=== PATIENT | female | born 1935 | race Caucasian/White ===

== ENCOUNTER 2017-04-12 13:03 | Outpatient (CLI) | payer MEDICARE ==
--- NOTE | 2017-04-12 16:32 | MMO ---
BILATERAL DIGITAL SCREENING MAMMOGRAMS: Date: 04/12/17 This patient's mammogram was interpreted with the assistance of computer-aided detection. HISTORY: Left-sided breast cancer in 2008. Comparison made with exams of 03/09/16 and 03/07/15. FINDINGS: The breast tissue is heterogeneously dense, which may reduce the sensitivity of mammography. No susp icious masses or calcifications are seen. Benign calcifications are again noted bilaterally. There i s scarring in the left breast. IMPRESSION: BIRADS 2: Benign Finding(s) Return to annual mammographic screening. POS: [facility]
== END 2017-04-12 13:04 | disposition home or self-care (01) ==
LOC: MAMMO 13:03
PROVIDERS: ATTEND Internal Medicine
DX: Z12.31 Encounter for screening mammogram for malignant neoplasm of breast (principal); Z85.3 Personal history of malignant neoplasm of breast; Z98.890 Other specified postprocedural states; Z92.3 Personal history of irradiation
CPT/HCPCS: 77067; G0202

== ENCOUNTER 2017-12-08 16:46 | Emergency (ER) | payer MEDICARE ==
[2017-12-08 17:44] LABS: #Eosinphils 0.2 thou/uL (0.0-0.7); #Lymphocytes 1.2 thou/uL (1.20-3.40); #Monocytes 0.5 thou/uL (0.11-0.59); #Neutrophils 5.6 thou/uL (1.40-6.50); %Basophils 0.5 % (0.0-1.0); %Eosinophils 2.5 % (0.0-10.0); %Monocytes 6.2 % (0.0-10.0); %Neutrophils 74.8 % (42.0-75.0); Hemoglobin 12.8 g/dL (12.0-16.0); Mean Corpuscular HGB CONC 32.5 g/dL (32.0-36.0); Mean Corpuscular Hemoglobin 30.5 pg (27.0-31.0); Mean Corpuscular Volume 94.1 fL (78.0-98.0); Mean Platelet Volume 8.9 fL (7.4-10.4); Platelet Count 150 thou/uL (130-400); RBC Distribution Width 14.4 % (11.5-14.5); Red Blood Cell (RBC) Count 4.18 mill/uL (4.20-5.40); White Blood Cell (WBC) Count 7.5 thou/uL (4.8-10.8)
[2017-12-08 18:01] LABS: ALT (SGPT) 16 U/L (8-55); AST (SGOT) 19 U/L (5-34); Alkaline Phosphatase 94 U/L (40-150); Anion Gap 15 mmol/L (10-20); BUN (Urea Nitrogen) 41 mg/dL (9.8-20.1); Bilirubin, Total 0.4 mg/dL (0.2-1.2); CKMB 3.9 ng/mL (0-6.6); Calc. Creatinine Clearance 0 mL/min (70-130); Calcium 10.3 mg/dL (7.8-10.44); Carbon Dioxide 29 mmol/L (23-31); Chloride 102 mmol/L (98-107); Estimated GFR-MDRD 32; Globulin 3.3 g/dL (2.4-3.5); Glucose 144 mg/dL (83-110); Protein, Total 7.3 g/dL (6.0-8.3); Sodium 141 mmol/L (136-145); Troponin I 0.023 ng/mL (< 0.028)
--- NOTE | 2017-12-08 18:30 | CT ---
CT BRAIN 12/08/17 PROVIDED CLINICAL HISTORY: Trauma. FINDINGS: The ventricular system appears normal in size and morphology. There is no evidence for intracranial h emorrhage or mass effect. The extracranial soft tissues and osseous structures demonstrate an unremar kable CT appearance. IMPRESSION: No evidence for intracranial hemorrhage or mass effect. POS: [facility]
--- NOTE | 2017-12-08 18:32 | CT ---
CT CERVICAL SPINE 12/08/17 PROVIDED CLINICAL HISTORY: Fall. FINDINGS: Comparison is mad with the study dated 08/02/14. There is no evidence for fracture or traumatic subluxation. Postoperative changes involving the cervi ramon spine are redemonstrated without evidence for hardware complication. Cervical degenerative change s are seen. The visualized lung apices appear clear. Stable nodular density adjacent to the left thyr oid lobe. IMPRESSION: No evidence for fracture or traumatic subluxation. POS: [facility]
[2017-12-08] MEDS ORDERED: Bacitracin Zinc 1 Packet ONE (19:56)
== END 2017-12-08 20:09 | disposition home or self-care (01) ==
LOC: ERS 16:46
DX: S01.111A Laceration without foreign body of right eyelid and periocular area, initial encounter (principal); I10 Essential (primary) hypertension; E11.9 Type 2 diabetes mellitus without complications; Z79.4 Long term (current) use of insulin; W18.30XA Fall on same level, unspecified, initial encounter
CPT/HCPCS: 12011; 36415; 70450; 72125; 80053; 82553; 84484; 85025; 93005

== ENCOUNTER 2017-12-21 12:47 | Outpatient (CLI) | payer MEDICARE ==
--- NOTE | 2017-12-21 13:36 | RAD ---
CHEST 2 VIEWS: HISTORY: Dyspnea. COMPARISON: 03/23/16. FINDINGS: Cardiac silhouette is upper limits of normal in size. Pulmonary vasculature is unremarkable. Parenc hymal opacity at each base, right greater than left, has increased since the previous exam. There is obscuration of the right lateral costophrenic angle. Mediastinum is midline with aortic calcificati on. No evidence of pneumothorax. Postoperative changes left axilla. IMPRESSION: Right basilar infiltrate. Probable right pleural fluid. Clinical correlation regarding other signs and symptoms of right basilar pneumonitis is required. POS: [facility]
== END 2017-12-21 12:48 | disposition home or self-care (01) ==
LOC: RAD 12:47
PROVIDERS: ATTEND Internal Medicine Pulmonary Disease
DX: R06.00 Dyspnea, unspecified (principal); R91.8 Other nonspecific abnormal finding of lung field
CPT/HCPCS: 71046

== ENCOUNTER 2018-02-15 13:22 | Outpatient (CLI) | payer MEDICARE ==
--- NOTE | 2018-02-15 14:07 | RAD ---
TWO VIEW CHEST: Comparison: 12-21-17 Indication: Dyspnea. FINDINGS: There is enlargement of the cardiac silhouette and prominence of the central pulmonary vasculature. M ild linear bibasilar density is present. Surgical clips are again seen along the left lateral chest w all. Interval decrease of patchy right perihilar opacities which may relate to improved edema versus pneumonia. IMPRESSION: 1. No lobar consolidation. 2. Mild bibasilar atelectasis. 3. Prominent cardiac silhouette and prominent vasculature which may relate to CHF. Correlate clinical ly. POS: [facility]
== END 2018-02-15 13:23 | disposition home or self-care (01) ==
LOC: RAD 13:22
PROVIDERS: ATTEND Internal Medicine Pulmonary Disease
DX: R06.00 Dyspnea, unspecified (principal); J98.11 Atelectasis
CPT/HCPCS: 71046

== ENCOUNTER 2018-03-09 09:19 | Outpatient (CLI) | payer MEDICARE | END 2018-03-09 09:20 | disposition home or self-care (01) | LOC: BICULT 09:19 | PROVIDERS: ATTEND Internal Medicine Nephrology | DX: I13.10 Hypertensive heart and chronic kidney disease without heart failure, with stage 1 through stage 4 chronic kidney disease, or unspecified chronic kidney disease (principal); E11.22 Type 2 diabetes mellitus with diabetic chronic kidney disease; N18.3 Chronic kidney disease, stage 3 (moderate); I25.10 Atherosclerotic heart disease of native coronary artery without angina pectoris; E87.5 Hyperkalemia; R80.9 Proteinuria, unspecified; M19.90 Unspecified osteoarthritis, unspecified site; I73.9 Peripheral vascular disease, unspecified; C43.9 Malignant melanoma of skin, unspecified; E03.9 Hypothyroidism, unspecified; D63.1 Anemia in chronic kidney disease | CPT/HCPCS: 76700 ==

== ENCOUNTER 2018-04-15 08:59 | Outpatient (CLI) | payer MEDICARE | END 2018-04-15 09:00 | disposition home or self-care (01) | LOC: BICMAMMO 08:59 | PROVIDERS: ATTEND Internal Medicine Medical Oncology | DX: Z12.31 Encounter for screening mammogram for malignant neoplasm of breast (principal); Z85.3 Personal history of malignant neoplasm of breast; Z80.3 Family history of malignant neoplasm of breast | CPT/HCPCS: 77063; 77067 ==

== ENCOUNTER 2018-05-26 21:43 | Inpatient (IN) | payer MEDICARE ==
[2018-05-26 22:31] LABS: #Eosinphils 0.2 thou/uL (0.0-0.7); #Lymphocytes 1.3 thou/uL (1.20-3.40); #Monocytes 0.7 thou/uL (0.11-0.59); #Neutrophils 3.1 thou/uL (1.40-6.50); %Eosinophils 3.9 % (0.0-10.0); %Lymphocytes 24.1 % (21.0-51.0); %Monocytes 12.8 % (0.0-10.0); %Neutrophils 59.2 % (42.0-75.0); Hemoglobin 12.4 g/dL (12.0-16.0); Mean Corpuscular HGB CONC 31.6 g/dL (32.0-36.0); Mean Corpuscular Hemoglobin 30.5 pg (27.0-31.0); Mean Corpuscular Volume 96.7 fL (78.0-98.0); Mean Platelet Volume 9.6 fL (7.4-10.4); Platelet Count 146 thou/uL (130-400); RBC Distribution Width 16.5 % (11.5-14.5); Red Blood Cell (RBC) Count 4.08 mill/uL (4.20-5.40); White Blood Cell (WBC) Count 5.3 thou/uL (4.8-10.8)
[2018-05-26 22:37] LABS: INR-International Normal Ratio 1.2; PTT 27.4 SEC (22.9-36.1); Prothrombin Time 15.3 SEC (12.0-14.7)
[2018-05-26 22:52] LABS: ALT (SGPT) 14 U/L (8-55); AST (SGOT) 22 U/L (5-34); Albumin 3.8 g/dL (3.4-4.8); Alkaline Phosphatase 63 U/L (40-150); Anion Gap 10 mmol/L (10-20); BUN (Urea Nitrogen) 64 mg/dL (9.8-20.1); Bilirubin, Total 0.4 mg/dL (0.2-1.2); CK (CPK) 83 U/L (29-168); Calc. Creatinine Clearance 0 mL/min (70-130); Calcium 10.1 mg/dL (7.8-10.44); Carbon Dioxide 31 mmol/L (23-31); Chloride 109 mmol/L (98-107); Estimated GFR-MDRD 26; Globulin 2.9 g/dL (2.4-3.5); Glucose 101 mg/dL (83-110); Potassium 4.8 mmol/L (3.5-5.1); Protein, Total 6.7 g/dL (6.0-8.3); Sodium 145 mmol/L (136-145)
--- NOTE | 2018-05-26 22:58 | RAD ---
PORTABLE CHEST: 05/26/18 HISTORY: Dyspnea. Heart size appears borderline. Some atelectatic change in the right lung base. No focal infiltrative process. No signs of failure. Surgical clips are seen in the left axilla. IMPRESSION: Borderline heart size. Atelectatic changes in the right lung base. POS: [facility]
--- NOTE | 2018-05-26 23:04 | CT ---
CT OF BRAIN PERFORMED WITHOUT CONTRAST ENHANCEMENT: 05/26/18 HISTORY: Altered mental status. COMPARISON: 12/08/17 exam. Mild generalized ventricular and sulcal prominence fairly age appropriate. There is no signs of intra cerebral hemorrhage or extra-axial fluid collection. Subtle low attenuation area the brainstem, appea rs similar to the prior exam. Chronic white matter changes are present. Mastoid air cells and visualized sinuses are clear. IMPRESSION: No acute intracranial abnormalities. POS: [facility]
[2018-05-26 23:13] LABS: CKMB 3.4 ng/mL (0-6.6)
[2018-05-26 23:19] LABS: Bilirubin Negative (Negative); Blood, Urine Negative (Negative); Clarity CLEAR (Clear); Glucose, Urine (Dipstick) Negative (Negative); Leukocyte Negative (Negative); Nitrite Negative (Negative); Protein, Urine (Dipstick) Negative (Neg-Trace); Specific Gravity, Urine 1.015 (1.002-1.036); Urobilinogen 0.2 mg/dL (0.2-1.0)
[2018-05-26] MEDS ORDERED: Aspirin 325 MG TAB ONE (23:32)
[2018-05-27] MEDS ORDERED: HumaLOG 300 UNITS/3 ML VIAL SC PRN ×2 (08:30)
[2018-05-27] MEDS ORDERED: Dextrose 50% Abboject 50 ML SYRINGE SLOW IVP PRN ×2 (08:30)
[2018-05-27] MEDS ORDERED: Dextrose 5% in Water 1,000 ML IV PRN (08:30)
[2018-05-27] MEDS ORDERED: Acetaminophen 325 MG TAB PO PRN (08:30)
[2018-05-27] MEDS ORDERED: PROVENTIL INHALER 6.7 G (200 INHALATIONS) INH PRN (08:32)
[2018-05-27] MEDS ORDERED: Aspirin 325 MG TAB PO SCH (09:00)
[2018-05-27] MEDS: Famotidine 20 MG TAB PO SCH (10:50)
[2018-05-27] MEDS: Aspirin 325 mg Enteric Coated Tablet PO SCH (10:50)
[2018-05-27] MEDS: Heparin 5,000 UNITS/ML VIAL SC SCH ×3 (10:50→21:21)
[2018-05-27] MEDS: Liothyronine Sodium 5 MCG TAB PO SCH ×2 (11:08→21:26)
--- NOTE | 2018-05-27 11:34 | ULT ---
CAROTID ARTERIAL DOPPLER ULTRASOUND: 05/27/2018 HISTORY: Acute stroke. COMPARISON: None. TECHNIQUE: Multiplanar chacko-scale sonographic imaging of the arterial structures of the neck obtained with color -flow and spectral analysis. FINDINGS: Detailed assessment is somewhat limited on the basis of patient motion artifact. Antegrade blood flow and normal arterial waveforms are documented within the carotid and vertebral sy stem bilaterally. There is atherosclerotic plaque seen bilaterally within the distal CCA and the proximal ICA, right gr eater than left. VESSEL PSV (CM PER SECOND) EDV (CM PER SECOND) RIGHT CCA 122 18 RIGHT ICA 119 21 RIGHT ECA 128 6 LEFT CCA 106 13 LEFT ICA 162 27 LEFT ECA 122 8 RIGHT ICA/CCA RATIO: 1.0 LEFT ICA/CCA RATIO: 1.5 IMPRESSION: Elevated velocity within the internal carotid artery on the left, correlating with a moderate degree of stenosis (50%-69%). Further evaluation via CT angiogram of the neck is suggested. POS: [facility]
[2018-05-27 13:42] LABS: Actual Bicarbonate (HCO3a) 23.5 mEq/L (22-28); Base Excess (BEa) -3.8 mEq/L (-2.0 to +3.0); CO2 Tension 51.2 mmHg (35.0-45.0); Hemoglobin (Hb) 13.9 g/dL (12.0-16.0); O2 Tension (PaO2) 96.1 mmHg (> 60.0); pH, Arterial 7.28 (7.35-7.45)
[2018-05-27 13:43] LABS: Analyzer IN Cardio OR; Calcium, Ionized 1.26 mmol/L (1.12-1.30); Carboxyhemoglobin (COHb) 1.8 gm% (0.0-3.0); Potassium - ABG Lab 4.86 mmol/L (3.70-5.30); Puncture Site RRA
[2018-05-27] MEDS ORDERED: Furosemide 40 MG/4 ML VIAL SLOW IVP SCH (14:00)
--- NOTE | 2018-05-27 14:07 | PDOC.EVN ---
Event Note - Event Note Event Note: Called to see patient during a code green. She was found to be in respiratory distress. she was tachypneic, and her initial oxygen saturations were low. It was noted that there was food all over the bed. On exam she has bilateral tight wheezing. Will check a stat CXR and EKG as well as troponin. It is possible she either aspirated, or she may be volume overloaded( by CXR). Will give a stat Duoneb treatment and Lasix 40mg IV. Start Zosyn for possible aspiration. She has been moved to the ICU . Will consult PCCM.
[2018-05-27] MEDS ORDERED: Labetalol HCl 100 MG/20 ML VIAL SLOW IVP PRN (14:09)
[2018-05-27] MEDS ORDERED: hydrALAZINE 20 MG/ML VIAL SLOW IVP PRN (14:09)
--- NOTE | 2018-05-27 14:33 | RAD ---
FRONTAL VIEW CHEST: INDICATION: Respiratory distress. FINDINGS: There is a linear density and patchy opacification of the right lower lung zone. There is interstiti al prominence of the left lung. Enlargement of the cardiac silhouette and pulmonary vasculature with vascular calcification. IMPRESSION: 1. Findings indicate congestive heart failure with decompensation. 2. Right basilar density which may be related to pleural fluid with adjacent atelectasis and/or pneu monia. Recommend continued followup with dedicated 2-view chest. POS: [facility]
[2018-05-27 14:44] LABS: CKMB 3.6 ng/mL (0-6.6)
--- NOTE | 2018-05-27 15:06 | HP ---
CHIEF COMPLAINT: Speech is altered. HISTORY OF PRESENT ILLNESS: The history of present illness is obtained from discussion with the hospital staff as the patient is completely aphasic with expressive aphasia and unable to give me any additional information. Ms. Higgins is an 82-year-old female, who has a history of hypertension and diabetes, and she was last seen normal by her family yesterday evening. I am estimating this must have been somewhere around 7 or 8 p.m. Apparently, they noticed that she was having difficulty with her speech. It sounded like she was having trouble finding words and communicating properly and they thought it could be her blood sugar being low as this has happened before; however, after checking for her blood glucose and it was normal, they noticed that she was hypoxic and they called EMS. Apparently, when the EMS arrived, her speech was normal, but en route, became confused again, and she is being admitted for possible acute stroke. I am seeing her the following morning, which is at least 12 to 14 hours later and her symptoms are still persistent. REVIEW OF SYSTEMS: I am unable to obtain review of systems as the patient has expressive aphasia. PAST MEDICAL HISTORY: The past medical history is taken from previous hospital records and a history and physical from 2013 by Giorgio Bernardo and it includes history of breast cancer, history of cervical spine disease, hypertension, hypercholesterolemia, and diabetes mellitus type 2. PAST SURGICAL HISTORY: She has had an ACDF, cholecystectomy, two neck surgeries, hysterectomy, and lumbar laminectomy. ALLERGIES: TO ADHESIVES. SOCIAL HISTORY: She is . She is a retired teacher. Nonsmoker and nondrinker. Code status is unknown. We will need to address this with family. She will be a full code in the interim. FAMILY HISTORY: No known heritable diseases and also unknown. MEDICATIONS: Medications are taken from the records and include, 1. Olmesartan or Benicar 40 mg daily. 2. Multivitamin once a day. 3. Milk of magnesia 30 mL p.r.n. 4. Cytomel 5 mcg twice a day. 5. Tradjenta 5 mg every other day. 6. Levemir insulin 28 units as directed. 7. [place] 5/325 q.4 hours as needed. 8. Furosemide 40 mg twice a day. 9. Vitamin B12 500 mcg daily. 10. Vitamin D3 6000 units daily. 11. Carvedilol 12.5 mg twice a day. 12. Calcium plus vitamin D one tablet daily. 13. Symbicort 160/4.5 two puffs twice a day as needed. 14. Aspirin 81 mg daily. 15. Caduet 5/40 one tablet daily. 16. ProAir inhaler two puffs q.4 hours as needed. 17. Tylenol 325 mg twice a day. PHYSICAL EXAMINATION: GENERAL: She is awake and alert. I am unable to assess orientation. She is well-developed and well-nourished. VITAL SIGNS: Blood pressure was 141/69, heart rate 51, respiratory rate of 18, and temperature is 98.1. HEENT: Pupils are equal, round, and reactive. Extraocular muscles are intact. Sclerae anicteric. Throat, no erythema or exudates. NECK: No adenopathy. No bruits. LUNGS: Clear to auscultation. There is no wheezing, no rales, no rhonchi. CARDIOVASCULAR: She has a normal S1 and S2. There was no S3 or S4. No murmurs, clicks, or rubs. ABDOMEN: Obese and soft. She did have some mild erythema on the abdominal wall. She has no evidence of any organomegaly. There is no rebound or guarding. EXTREMITIES: She has some nonpitting edema. NEUROLOGIC: She is able to follow commands and her cranial nerves are grossly intact 2 through 12. Her muscle strength is 5/5 in both upper and lower extremities. She had good client manager strength. There is no drift; however, she does have expressive aphasia and she can answer yes/no questions and occasionally, her answers will seem appropriate, but the majority is completely unintelligible. For example, she will say something like "I want to do my pig pledge" and other statements that are completely nonsensical. LABORATORY RESULTS: White blood cell count is 5.3, hemoglobin 12.4, hematocrit is 39.4, and platelet count is 146. INR is 1.2. Sodium 145, potassium 4.8, chloride is 109, CO2 of 31, BUN of 64, and creatinine 1.85. Glucose is 101. Troponin was 0.157. Glucose 61. Urinalysis was negative. She had a CT scan of the brain showing no acute intracranial process. She had an x-ray of her chest, it was actually poorly-penetrated view. She does have some evidence of cardiomegaly with possibly slight increase in pulmonary vascular markings. This is by my reading. She also had an EKG, which is also by my reading showing low voltage, it was sinus rhythm. Rate was in the 50s with no ST wave changes. ASSESSMENT: 1. This is a pleasant 82-year-old female, who presents to the emergency room with the sudden onset of expressive aphasia. She will be admitted for acute stroke. Her symptoms have been persistent for at least 12 hours and I suspect this is more likely a stroke than a transient ischemic attack. An MRI will be obtained. We will also get an echocardiogram and carotid Dopplers and lipid panel. I will place her on aspirin therapy as well as check a lipid panel. Also get a Neurology consult. We will monitor her for atrial fibrillation. 2. Hypertension. Her blood pressure has been more or less labile. When she has been cleared to take oral, we will continue her usual medications as well as p.r.n. for elevated blood pressure, but we will allow for some permissive hypertension. 3. Diabetes mellitus. For now, we will place her on a sliding scale. When she is able to take oral, then we can restart her usual home doses of insulin and she will be placed on deep vein thrombosis and gastrointestinal prophylaxis. Job ID: [id number]
[2018-05-27] MEDS ORDERED: Piperacillin/Tazobactam 3.375 GM in Sodium Chloride 0.9% 100 ML IVPB SCH (18:00)
[2018-05-27] MEDS: Mometasone/Formoterol 120 PUFF INHALER INH SCH (18:58)
[2018-05-27] MEDS ORDERED: Lorazepam 2 MG/ML VIAL SLOW IVP PRN ×2 (19:12→20:45)
--- NOTE | 2018-05-27 20:46 | CON ---
DATE OF CONSULTATION: 05/27/2018 SERVICE: Pulmonary Medicine. REASON FOR CONSULT: Respiratory failure. HISTORY OF PRESENT ILLNESS: The patient is an 82-year-old white female with past medical history significant for morbid obesity, who presents to the hospital with altered mentation. She was having some word-finding difficulty and word salad. Ultimately, CT scan was done of the head, which was unremarkable. She was tucked into the floor. In that location, she had a sudden onset of hypertensive event resulting in hypoxic respiratory failure. She was subsequently transitioned to the ICU and for a period of time, she looked quite bad. That being said, she suddenly improved. She is actually talking in full sentences at this time. She denies any current fevers, chills, nausea, or vomiting. She does have morbid obesity. She takes insulin on a daily basis. She appears to be quite weak. She is not able to provide any of the historical elements due to her presentation. PAST MEDICAL HISTORY: 1. Hypertension. 2. Dyslipidemia. 3. Type 2 diabetes mellitus. 4. History of breast cancer. 5. Osteoarthritis. PAST SURGICAL HISTORY: 1. Lumpectomy of the left breast. 2. Bilateral knee replacement. 3. Cholecystectomy. 4. Hysterectomy. 5. Neck surgery. 6. Tonsillectomy. 7. Wrist surgery. SOCIAL HISTORY: Negative for current tobacco, alcohol, or illicit drug use. FAMILY HISTORY: Noncontributory. ALLERGIES: NO KNOWN DRUG ALLERGIES. MEDICATIONS: List of her inpatient medications was reviewed. Multiple updates were made at this time. REVIEW OF SYSTEMS: General, head, ears, eyes, nose, throat, cardiovascular, respiratory, genitourinary, musculoskeletal, neurologic, and skin are negative except as mentioned is the HPI. PHYSICAL EXAMINATION: VITAL SIGNS: Afebrile, pulse 69, blood pressure 175/78, respirations 27, and saturation 99% on a non-rebreather currently. HEENT: Normocephalic and atraumatic. Sclerae white. Conjunctivae pink. Oral mucosa is moist without lesions. LUNGS: Decent air entry. There is no prolonged expiratory phase, but extensive crackles are present throughout bilateral lung coleman. HEART: Normal rate and regular. ABDOMEN: Soft, nontender, and nondistended. Bowel sounds are positive. MUSCULOSKELETAL: No cyanosis or clubbing. There is diffuse 3 to 4+ pitting throughout. GENITOURINARY: Cardozo catheter in place. NEUROLOGIC: Grossly nonfocal. LABORATORY DATA: WBC 5.3, hemoglobin 12.4, platelets 146,000. INR 1.2. PH 7.28, pCO2 of 51, PO2 of 96 on non-rebreather at that time. Troponin is 0.111, which is gently downtrending. Blood sugar ranges from 63 to 101. Creatinine 1.85, which is essentially close to her baseline. Liver function studies are essentially unremarkable. Urinalysis is unremarkable. IMAGIN. Chest x-ray demonstrates findings consistent with volume overload, cardiomegaly on this AP film, fluid in the fissure, and cephalization; all consistent with volume overload. 2. Ultrasound of the bilateral carotids demonstrate no hemodynamically significant stenoses. There is a moderate degree of stenosis on the left. 3. CT of the brain demonstrates no acute intracranial abnormality. ASSESSMENT: 1. Acute hypoxic respiratory failure. 2. Acute on chronic heart failure, suspected. 3. Chronic kidney disease, stage 4. 4. Morbid obesity. 5. Acute on chronic hypoxic and hypercapnic respiratory failure. 6. Flash pulmonary edema. 7. Hypertensive emergency. DISCUSSION AND PLAN: We are going to start to aggressively diurese the patient. If she does not open up with 40 mg of Lasix, we will increase the dose. Pulmonary Critical Care will continue to follow along in this location. My suspicion is that we are dealing with a metabolic encephalopathy. Hopefully, some of the altered mentation and metabolic changes will melt away as the day goes on. If anything gets worse, we will certainly put her on noninvasive ventilation with BiPAP. I do believe she would be a good candidate for that. CRITICAL CARE TIME: 30 minutes. Job ID: [id number]
[2018-05-27] MEDS ORDERED: Non-Formulary Item 1 EACH (Amlodipine/Atorvastatin [Caduet] 1 TABLET) PO SCH (21:00)
[2018-05-27] MEDS ORDERED: Atorvastatin Calcium 40 MG TAB PO SCH (21:00)
[2018-05-27] MEDS: Atorvastatin Calcium 20 MG TAB PO SCH (21:25)
[2018-05-27] MEDS: Amlodipine 5 MG TAB PO SCH (21:25)
[2018-05-27] MEDS: Carvedilol 6.25 MG TAB PO SCH (21:26)
[2018-05-28 05:03] LABS: #Eosinphils 0.1 thou/uL (0.0-0.7); #Monocytes 0.4 thou/uL (0.11-0.59); #Neutrophils 3.6 thou/uL (1.40-6.50); %Basophils 0.7 % (0.0-1.0); %Eosinophils 2.7 % (0.0-10.0); %Lymphocytes 18.9 % (21.0-51.0); %Monocytes 8.4 % (0.0-10.0); %Neutrophils 69.3 % (42.0-75.0); Hemoglobin 11.8 g/dL (12.0-16.0); Mean Corpuscular HGB CONC 30.3 g/dL (32.0-36.0); Mean Corpuscular Hemoglobin 29.5 pg (27.0-31.0); Mean Corpuscular Volume 97.4 fL (78.0-98.0); Mean Platelet Volume 9.6 fL (7.4-10.4); Platelet Count 124 thou/uL (130-400); RBC Distribution Width 16.4 % (11.5-14.5); White Blood Cell (WBC) Count 5.3 thou/uL (4.8-10.8)
[2018-05-28 05:25] LABS: Anion Gap 12 mmol/L (10-20); BUN (Urea Nitrogen) 52 mg/dL (9.8-20.1); Calc. Creatinine Clearance 58 mL/min (70-130); Calcium 9.6 mg/dL (7.8-10.44); Carbon Dioxide 27 mmol/L (23-31); Cardiac Risk 3.1 (Less than 4.5); Chloride 112 mmol/L (98-107); Cholesterol 101 mg/dl (< 200 Desired); Estimated GFR-MDRD 34; Glucose 77 mg/dL (83-110); HDL Cholesterol 33 mg/dL (>60 Neg Risk); LDL Cholesterol, Calculated 52 mg/dL; Magnesium 2.5 mg/dL (1.6-2.6); Potassium 4.9 mmol/L (3.5-5.1); Sodium 146 mmol/L (136-145); Triglycerides 82 mg/dL (Less than 150)
[2018-05-28] MEDS ORDERED: Furosemide 100 MG/10 ML VIAL SLOW IVP SCH (06:00)
--- NOTE | 2018-05-28 09:07 | PDOC.PN ---
- Subjective Encounter Start Date: 05/28/18 Encounter Start Time: 09:05 Ms. Higgins was seen today in follow-up of Acute CVA, and Respiratory failure. She was on BIPAP last night and this morning. She was just taken off. She is making sense, and says she knows she is in the hospital. She denies any pain, and she says she is breathing better. - Objective Resuscitation Status - Order Detail: 05/27/18 08:25 Resuscitation Status Routine Resuscitation Status: FULL: Full Resuscitation MAR Reviewed: Yes Vital Signs & Weight: Vital Signs (12 hours) Temp Pulse 05/28/18 04:00 98.8 F 05/28/18 00:00 98.8 F 05/27/18 21:25 54 L Weight Admit Weight 282 lb 3.2 oz Weight 279 lb 12.266 oz Most Recent Monitor Data Heart Rate from ECG 53 NIBP 147/60 NIBP BP-Mean 89 Respiration from ECG 17 SpO2 97 I&O: 05/27/18 05/28/18 05/29/18 06:59 06:59 06:59 Intake Total 328 Output Total 2595 350 Balance -2267 -350 Result Diagrams: 05/28/18 04:42 05/28/18 04:42 Additional Labs: Accuchecks 05/28/18 05/27/18 05/27/18 04:45 21:56 16:58 POC Glucose 71 78 99 05/27/18 05/27/18 05/27/18 13:26 12:21 10:34 POC Glucose 101 95 63 L Phys Exam - Physical Examination HEENT: PERRLA Respiratory: no wheezing, no rhonchi + coarse breath sounds and rales at the bases Cardiovascular: RRR, no significant murmur, no rub Gastrointestinal: soft, non-tender, no distention, positive bowel sounds Musculoskeletal: edema present 1+ pitting edema in both lower extremities Neurological: moves all 4 limbs expressive aphasia , intermittient Dx/Plan (1) Acute CVA (cerebrovascular accident) Code(s): I63.9 - CEREBRAL INFARCTION, UNSPECIFIED Status: Acute (2) Expressive aphasia Code(s): R47.01 - APHASIA Status: Acute (3) Acute respiratory failure with hypoxia Code(s): J96.01 - ACUTE RESPIRATORY FAILURE WITH HYPOXIA Status: Acute (4) Hypertension Code(s): I10 - ESSENTIAL (PRIMARY) HYPERTENSION Status: Chronic (5) Diabetes mellitus type 2 in obese Code(s): E11.69 - TYPE 2 DIABETES MELLITUS WITH OTHER SPECIFIED COMPLICATION; E66.9 - OBESITY, UNSPECIFIED Status: Chronic - Plan * Acute CVA- will continue aspirin and statin therapy- MRI is pending * Left Carotid artery disease- will await Neurology input- consider pursuing CTA of the neck, once she is ore stable from the respiratory standpoint * Acute respiratory failure- likely due to flash pulmonary edema- from elevated blood pressure- continue to diurese, and monitor electrolytes, and renal function * HTN- blood pressure is better. * DM- blood glucose is controlled
[2018-05-28] MEDS: Aspirin 325 mg Enteric Coated Tablet PO SCH (11:16)
[2018-05-28] MEDS: Calcium Carbonate + Vit D 1 TAB PO SCH (11:16)
[2018-05-28] MEDS: Liothyronine Sodium 5 MCG TAB PO SCH ×2 (11:16→21:08)
[2018-05-28] MEDS: Multivit, Therapeutic 1 TAB PO SCH (11:17)
[2018-05-28] MEDS: Famotidine 20 MG TAB PO SCH (11:17)
[2018-05-28] MEDS: Heparin 5,000 UNITS/ML VIAL SC SCH ×3 (11:18→21:08)
[2018-05-28] MEDS: Carvedilol 6.25 MG TAB PO SCH ×2 (11:23→22:06)
--- NOTE | 2018-05-28 11:23 | PRG ---
DATE OF SERVICE: SERVICE: Pulmonary Medicine. INTERVAL HISTORY: The patient is doing outstanding from respiratory standpoint. We gave her a dose of Lasix yesterday. Her blood pressure came down. Ultimately, she did not have any respiratory events overnight. She is breathing comfortably, and indicates she does not have any discomfort. She still has some difficulty finding the right word. OBJECTIVE: VITAL SIGNS: Afebrile, pulse 53, blood pressure 147/60, respirations 17, saturation 97% on 3 L nasal cannula. GENERAL: The patient is awake, alert, in no apparent distress. LUNGS: Decent air entry. Dependent crackles are present. There is also a little bit of wheezing, but it is not the high-pitched polyphonic sounds typical of obstructive lung disease. HEART: Bradycardic. Regular. ABDOMEN: Soft, nontender, and nondistended. Bowel sounds are positive. MUSCULOSKELETAL: No cyanosis or clubbing. There is still 2 to 3+ pitting edema of the bilateral lower extremities, but there is marked improvement. LABORATORY DATA: WBC 5.3, hemoglobin 11.8, platelets are 124,000. Sodium 146 and gently up-trending, chloride 112. Creatinine 1.46 and downtrending, BUN 52. Magnesium is 2.5. BNP 324, troponin 0.111 and downtrending. Urinalysis is unremarkable. IMAGING: Echocardiogram demonstrates a normal ejection fraction with a mildly enlarged right ventricle. Left atrium is a little dilated. ASSESSMENT: 1. Acute hypoxic respiratory failure. 2. Hypertensive emergency. 3. Flash pulmonary edema, suspected. 4. Acute on chronic diastolic heart failure. 5. Chronic kidney disease, stage 4. 6. Morbid obesity. 7. Chronic hypercapnic respiratory failure. DISCUSSION AND PLAN: We will continue to diurese the patient through time. I am going to start a little bit of free water to prevent her sodium from going terribly high. At this point, her respirations have stabilized to the point, where she can safely transition back to the Stroke Unit. In 1 to 2 days, if she continues to have these word-finding difficulties, an eMRI of the brain would be indicated. Job ID: [id number]
[2018-05-28] MEDS: Alogliptin 25 MG TAB PO SCH (11:26)
--- NOTE | 2018-05-28 12:30 | CON ---
DATE OF CONSULTATION: 05/28/2018 CONSULTING SERVICE: Hospitalist Service. IMPRESSION: 1. Transient ischemic attack with transient expressive aphasia reported. 2. Diabetes. 3. Obesity. PLAN: 1. Continue aspirin. 2. Statin, if not already established on this. 3. MRI is pending. 4. Add Plavix. HISTORY OF PRESENT ILLNESS: Ms. Higgins is an 82-year-old woman, who came in last evening with complaints of expressive aphasia. She apparently was noted by her family to not be communicating properly. There were no other associated symptoms. She was brought to the emergency room. She had a CT of the brain done, which did not show any acute changes. She had an uneventful night. Her speech seemingly has returned. For the most part, she seemed to have a bit of word-finding difficulty this morning in our discussion, but otherwise is without any complaints of lateralized weakness or numbness. She denies any past history of stroke symptoms. PAST HISTORY: Diabetes, hypertension, hypothyroidism, and COPD. ALLERGIES: NONE REPORTED. SOCIAL HISTORY: Unremarkable for any tobacco use. FAMILY HISTORY: Noncontributory. MEDICATIONS: Medication list was reviewed. REVIEW OF SYSTEMS: No complaints of headache, nausea, vomiting, vertigo, chest pain, shortness breath, lateralized weakness, or numbness. PHYSICAL EXAMINATION: GENERAL: She is an overweight elderly lady, lying in bed, using a BiPAP machine. VITAL SIGNS: Blood pressure 110/72, pulse 56, respirations 19, saturations 97%. HEENT: Pupils are equal and reactive. Conjunctiva clear. Oropharynx clear. NECK: Supple. No lymphadenopathy. EXTREMITIES: No cyanosis, but a moderate amount of edema noted peripherally in the legs. CARDIOVASCULAR: Regular rate and rhythm noted. NEUROLOGIC: She awakened easily and was cooperative with the exam. Her speech was clear. There was no dysarthria present. She seemed to struggle with finding some words initially, but it seemingly improved a bit as we continued our exam. She was able to repeat phrases without any difficulty. There was no facial asymmetry or visual field deficits. Motor exam shows good iron pellet tester strength bilaterally and good anti-gravity movement in both lower extremities. Sensation was intact to touch. Plantar responses were downgoing bilaterally. There is no tremor or dysmetria present. SUMMARY: An elderly lady with some transient expressive aphasia consistent with probable left anterior MCA ischemia. Her symptoms were better. Medication list included aspirin. Therefore, I would add Plavix. I do not see that she was taking a statin, which would be advisable to begin a low-dose treatment. Otherwise, her workup has been unremarkable. Job ID: [id number]
[2018-05-28] MEDS: Mometasone/Formoterol 120 PUFF INHALER INH SCH ×2 (13:04→19:48)
[2018-05-28] MEDS: Dextrose 5% in Water 1,000 ML IV SCH (16:00)
[2018-05-28] MEDS ORDERED: Dextrose 50% Abboject 50 ML SYRINGE SLOW IVP PRN (17:27)
[2018-05-28] MEDS ORDERED: Dextrose 5% in Water 1,000 ML IV PRN (17:27)
[2018-05-28] MEDS: Clopidogrel Bisulfate 75 MG TAB PO SCH (18:36)
[2018-05-28] MEDS: Atorvastatin Calcium 20 MG TAB PO SCH (21:08)
[2018-05-28] MEDS: Amlodipine 5 MG TAB PO SCH (22:07)
[2018-05-29] MEDS ORDERED: Furosemide 100 MG/10 ML VIAL SLOW IVP SCH (06:00)
[2018-05-29 07:24] LABS: Anion Gap 12 mmol/L (10-20); BUN (Urea Nitrogen) 48 mg/dL (9.8-20.1); Calc. Creatinine Clearance 58 mL/min (70-130); Calcium 9.5 mg/dL (7.8-10.44); Carbon Dioxide 26 mmol/L (23-31); Chloride 107 mmol/L (98-107); Estimated GFR-MDRD 34; Glucose 181 mg/dL (83-110); Magnesium 2.6 mg/dL (1.6-2.6); Potassium 4.8 mmol/L (3.5-5.1); Sodium 140 mmol/L (136-145)
[2018-05-29] MEDS: Heparin 5,000 UNITS/ML VIAL SC SCH ×3 (08:46→21:23)
[2018-05-29] MEDS: Liothyronine Sodium 5 MCG TAB PO SCH ×2 (08:47→21:15)
[2018-05-29] MEDS: Carvedilol 6.25 MG TAB PO SCH ×2 (08:47→21:24)
[2018-05-29] MEDS: Multivit, Therapeutic 1 TAB PO SCH (08:47)
[2018-05-29] MEDS: Dextrose 5% in Water 1,000 ML IV SCH (08:48)
[2018-05-29] MEDS: Famotidine 20 MG TAB PO SCH (08:48)
[2018-05-29] MEDS: Calcium Carbonate + Vit D 1 TAB PO SCH (08:48)
[2018-05-29] MEDS: Aspirin 325 mg Enteric Coated Tablet PO SCH (08:48)
[2018-05-29] MEDS: Mometasone/Formoterol 120 PUFF INHALER INH SCH ×2 (09:24→19:42)
--- NOTE | 2018-05-29 10:57 | PDOC.PN ---
- Subjective Encounter Start Date: 05/29/18 Encounter Start Time: 10:55 Ms. Higgins was seen today in follow-up of acute CVA. She is still having some difficulty with word finding. However it is much improved since admission. She can also tell now when the words are not making sense, she will stop and try to correct it. She says she is breathing fine. - Objective Resuscitation Status - Order Detail: 05/27/18 08:25 Resuscitation Status Routine Resuscitation Status: FULL: Full Resuscitation MAR Reviewed: Yes Vital Signs & Weight: Vital Signs (12 hours) Temp Pulse Resp BP BP Pulse Ox 05/29/18 09:24 51 L 16 05/29/18 08:47 168/58 H 05/29/18 08:00 98.4 F 51 L 20 173/74 H 93 L 05/29/18 03:23 97.9 F 50 L 16 145/66 H 94 L 05/28/18 23:52 98.1 F 51 L 16 141/65 H 95 Weight Admit Weight 282 lb 3.2 oz Weight 279 lb 9.6 oz Most Recent Monitor Data Heart Rate from ECG 60 NIBP 168/72 NIBP BP-Mean 104 Respiration from ECG 21 SpO2 95 I&O: 05/28/18 05/29/18 05/30/18 06:59 06:59 06:59 Intake Total 328 642 400 Output Total 2595 1455 Balance -2267 -813 400 Result Diagrams: 05/28/18 04:42 05/29/18 06:10 Additional Labs: Accuchecks 05/29/18 05/28/18 05:53 21:06 POC Glucose 180 H 165 H Phys Exam - Physical Examination HEENT: PERRLA + mild wheezing and rales at the bases, no rhonchi Cardiovascular: RRR, no significant murmur, no rub Gastrointestinal: soft, non-tender, no distention, positive bowel sounds Musculoskeletal: pulses present, edema present Neurological: moves all 4 limbs + mild expressive aphasia Dx/Plan (1) Acute CVA (cerebrovascular accident) Code(s): I63.9 - CEREBRAL INFARCTION, UNSPECIFIED Status: Acute (2) Expressive aphasia Code(s): R47.01 - APHASIA Status: Acute (3) Acute respiratory failure with hypoxia Code(s): J96.01 - ACUTE RESPIRATORY FAILURE WITH HYPOXIA Status: Acute (4) Hypertension Code(s): I10 - ESSENTIAL (PRIMARY) HYPERTENSION Status: Chronic (5) Diabetes mellitus type 2 in obese Code(s): E11.69 - TYPE 2 DIABETES MELLITUS WITH OTHER SPECIFIED COMPLICATION; E66.9 - OBESITY, UNSPECIFIED Status: Chronic - Plan * Acute CVA with expressive Aphasia- plan is for MRI. Continue aspirin and Plavix * Continue Lipitor * HTN- blood pressure is elevated- will increase Amlodipine to 10 mg * Cerebral vascular disease- she has moderate flow limitation by doppler- will need to discuss with Neurology/CV -surgery if CTA is warranted, given her chronic kidney disease, and episode of acute respiratory failure due to volume overload. ( She would have to be hydrated in order to have the CTA * DM- blood glucose is stable * Will screen for Rehab.
--- NOTE | 2018-05-29 15:49 | PDOC.EVN ---
Event Note - Event Note Event Note: Discussed with radiologist preparation supervisor freezing. Ideally the patient's GFR should be 35 or greater before performing the CTA. Will hold her Lasix and ARB , and re-check her renal function in the AM. If it is better than will check the CTA
[2018-05-29] MEDS: Clopidogrel Bisulfate 75 MG TAB PO SCH (17:09)
[2018-05-29] MEDS ORDERED: Furosemide 20 MG TAB PO SCH (21:00)
--- NOTE | 2018-05-29 21:19 | PRG ---
DATE OF SERVICE: 05/29/2018 SERVICE: Pulmonary Medicine. INTERVAL HISTORY: The patient is doing okay. She denies any current chest pain, fevers, or chills. Whenever her oxygen fell off, her saturations fell to the mid 70s. That being said, on 3 L nasal cannula, she is breathing comfortably in the low 90s. She denies any current chest pain, fevers, or chills. She continues to have some word-finding difficulty, but this is improving a little bit. OBJECTIVE: VITAL SIGNS: Afebrile, pulse 54, blood pressure 153/68, respirations 18, and saturation 94% on 3 L nasal cannula. GENERAL: The patient is awake and alert, in no apparent distress. LUNGS: Decent air entry. Extensive rhonchi present. There is a slightly prolonged expiratory phase. Dependent crackles are noted. HEART: Normal rate, regular. ABDOMEN: Soft, nontender, and nondistended. Bowel sounds are positive. MUSCULOSKELETAL: No cyanosis or clubbing. There is no pitting in the bilateral lower extremities. NEUROLOGIC: Grossly nonfocal. LABORATORY DATA: Creatinine 1.47 and stable. Basic metabolic profile is otherwise unremarkable. BUN is dropping off. Her sodium and chloride are both downtrending. Magnesium 2.6. ASSESSMENT: 1. Acute hypoxic respiratory failure. 2. Hypertensive emergency. 3. Flash pulmonary edema, suspected. 4. Acute on chronic diastolic heart failure. 5. Chronic kidney disease stage 4. 6. Chronic hypercapnic respiratory failure. 7. Morbid obesity. DISCUSSION AND PLAN: We will continue supportive care including IV fluids. D5 water will be interrupted as her sodium is back down to normal. We will continue to diurese her through time. We will schedule Mucinex to help her liberate some sputum. I will initiate some Levaquin because of her yellow sputum. Pulmonary Critical Care will continue to follow along. Job ID: [id number]
[2018-05-29] MEDS: Amlodipine 10 MG TAB PO SCH (21:24)
[2018-05-29] MEDS: Atorvastatin Calcium 20 MG TAB PO SCH (21:24)
[2018-05-30 05:25] LABS: Anion Gap 13 mmol/L (10-20); BUN (Urea Nitrogen) 50 mg/dL (9.8-20.1); Calc. Creatinine Clearance 50 mL/min (70-130); Calcium 9.4 mg/dL (7.8-10.44); Carbon Dioxide 27 mmol/L (23-31); Chloride 105 mmol/L (98-107); Estimated GFR-MDRD 29; Glucose 121 mg/dL (83-110); Potassium 4.6 mmol/L (3.5-5.1); Sodium 140 mmol/L (136-145)
[2018-05-30] MEDS: Mometasone/Formoterol 120 PUFF INHALER INH SCH ×2 (06:59→18:58)
--- NOTE | 2018-05-30 08:59 | PDOC.PN ---
- Subjective Encounter Start Date: 05/30/18 Encounter Start Time: 08:57 Ms. Higgins was seen today of acute CVA with expressive aphasia. She is still having some word finding problems. She does not have any other complaints. - Objective Resuscitation Status - Order Detail: 05/27/18 08:25 Resuscitation Status Routine Resuscitation Status: FULL: Full Resuscitation MAR Reviewed: Yes Vital Signs & Weight: Vital Signs (12 hours) Temp Pulse Pulse Pulse Resp BP BP 05/30/18 08:15 57 L 46 L 129/63 05/30/18 07:56 97.9 F 47 L 20 05/30/18 07:02 05/30/18 06:59 45 L 20 05/30/18 04:00 97.4 F L 46 L 19 05/30/18 00:00 97.9 F 50 L 20 05/29/18 21:24 58 L 168/58 H BP Pulse Ox Pulse Ox 05/30/18 08:15 93 L 05/30/18 07:56 138/65 93 L 05/30/18 07:02 93 L 05/30/18 06:59 93 L 05/30/18 04:00 118/53 L 95 05/30/18 00:00 123/58 L 92 L 05/29/18 21:24 Weight Admit Weight 282 lb 3.2 oz Weight 279 lb 9.6 oz Most Recent Monitor Data Heart Rate from ECG 60 NIBP 168/72 NIBP BP-Mean 104 Respiration from ECG 21 SpO2 95 I&O: 05/29/18 05/30/18 05/31/18 06:59 06:59 06:59 Intake Total 642 500 Output Total 1455 1325 Balance -813 -825 Result Diagrams: 05/28/18 04:42 05/30/18 04:28 Additional Labs: Accuchecks 05/30/18 05/29/18 05/29/18 06:14 20:02 16:29 POC Glucose 121 H 159 H 133 H 05/29/18 10:36 POC Glucose 175 H Phys Exam - Physical Examination HEENT: PERRLA Respiratory: no wheezing, no rales + occasional rhonchi, no wheezing, Cardiovascular: RRR, no significant murmur, no rub Gastrointestinal: soft, non-tender, no distention, positive bowel sounds Musculoskeletal: pulses present, edema present + expressive aphasia Dx/Plan (1) Acute CVA (cerebrovascular accident) Code(s): I63.9 - CEREBRAL INFARCTION, UNSPECIFIED Status: Acute (2) Expressive aphasia Code(s): R47.01 - APHASIA Status: Acute (3) Acute respiratory failure with hypoxia Code(s): J96.01 - ACUTE RESPIRATORY FAILURE WITH HYPOXIA Status: Acute (4) Hypertension Code(s): I10 - ESSENTIAL (PRIMARY) HYPERTENSION Status: Chronic (5) Diabetes mellitus type 2 in obese Code(s): E11.69 - TYPE 2 DIABETES MELLITUS WITH OTHER SPECIFIED COMPLICATION; E66.9 - OBESITY, UNSPECIFIED Status: Chronic (6) Chronic kidney disease, stage 3 Code(s): N18.3 - CHRONIC KIDNEY DISEASE, STAGE 3 (MODERATE) Status: Chronic - Plan * Acute CVA- continue aspirin and plavix, and statin * Chronic kidney disease- discussed with Dr. Fox . He says her kidney function is normal for her age, and to proceed with the CTA of the neck * HTN- blood pressure is better * DM- blood glucose is stable. * Acute respiratory failure due to flash pulmonary edema- better.- Lasix and ARB on hold for the CTA
[2018-05-30] MEDS ORDERED: Iopamidol 370 76% 100 ML VIAL ONE (09:27)
[2018-05-30] MEDS: Heparin 5,000 UNITS/ML VIAL SC SCH ×3 (09:33→21:02)
[2018-05-30] MEDS: Aspirin 81 mg Enteric Coated Tablet PO SCH (09:34)
[2018-05-30] MEDS: Alogliptin 25 MG TAB PO SCH (09:34)
[2018-05-30] MEDS: Carvedilol 6.25 MG TAB PO SCH ×2 (09:34→21:02)
[2018-05-30] MEDS: Multivit, Therapeutic 1 TAB PO SCH (09:34)
[2018-05-30] MEDS: Liothyronine Sodium 5 MCG TAB PO SCH ×2 (09:34→21:03)
[2018-05-30] MEDS: Famotidine 20 MG TAB PO SCH (09:34)
[2018-05-30] MEDS: Calcium Carbonate + Vit D 1 TAB PO SCH (09:34)
--- NOTE | 2018-05-30 09:36 | RAD ---
PORTABLE FRONTAL CHEST RADIOGRAPH: DATE: 05/30/2018. COMPARISON: 05/26/2018. HISTORY: Cough. FINDINGS: Postoperative clips overlie the left axillary region. There is hazy airspace disease in both lung ba ses with blunting of the costophrenic angles suggesting small bilateral pleural effusions. There is no pneumothorax. There is atherosclerotic calcification in the aortic arch. IMPRESSION: Hazy bibasilar pleural and parenchymal opacities suggest pulmonary edema and/or infectious pneumoniti s/aspiration. Followup imaging following treatment to document resolution advised. POS: FIORELLA
--- NOTE | 2018-05-30 15:12 | PRG ---
DATE OF SERVICE: 05/30/2018 SUBJECTIVE: She is back from the MRI. Eating her dinner without any issues. Denies any cough or shortness of breath. OBJECTIVE: VITAL SIGNS: To my surprise, her sats 95% on room air, pulse _84, blood pressure 130/80. EXTREMITIES: She is moving all four extremities. CHEST: Decreased breath sounds without any wheezing. CARDIAC: Normal S1 and S2. No gallops. ABDOMEN: Soft, massive. IMPRESSION: 1. Respiratory failure, morbid obesity. 2. Cerebrovascular accident. 3. Severe deconditioning. 4. Renal failure. PLAN: At this stage, continue present treatment. Awaiting input from Neurology. Job ID: [id number] MTDD
--- NOTE | 2018-05-30 15:19 | PDOC.EVN ---
Event Note - Event Note Event Note: MRI and CTA results discussed with patient and brother. Will consult CV Surgery.
--- NOTE | 2018-05-30 16:13 | CT ---
CT ANGIOGRAM NECK: HISTORY: Abnormal carotid ultrasound. Recent CVA. COMPARISON: None. CORRELATION: Carotid ultrasound from 05/27/2018. FINDINGS: The visualized brain parenchyma and paranasal sinuses are unremarkable. There are no masses in the o ral cavity. Limited evaluation due to dental amalgam artifact. Midline fatty raphe of the tongue is preserved. The epiglottis has a normal caliber. Pre-epiglottic fat is preserved. There is anterolisthesis of C3 upon C4. Cervical fusion from C4 through C6. Anterior fusion plate w ith corpectomy at C5 is noted. Additional fusion of the C6-C7 disk space is identified. There is si gnificant degenerative change at C7-T1 and at T1-T2. Varying degrees of central canal stenosis and n eural foraminal narrowing on the basis of degenerative change. There appears to be at least moderate central canal stenosis at C5-C6 and C6-C7. Symmetric attenuation of the parotid and submandibular glands. Heterogeneous thyroid gland with mult iple nodules. Symmetric attenuation of the sternocleidomastoid muscles. No evidence of lymphadenopathy by size criteria. The upper mediastinum is unremarkable. There is a right-sided pleural effusion. Patchy ground glass opacities in the upper lobes. Linear opacities in the right upper lobe may represent subsegmental a telectasis or scarring. CT ANGIOGRAM: There is atherosclerosis of a nonaneurysmal aortic arch. RIGHT CAROTID: The right carotid artery origin has appropriate enhancement and luminal diameter. Th e common carotid artery has appropriate enhancement and luminal diameter. Calcified and noncalcified plaque result in short-segment severe stenosis involving the proximal right internal carotid artery, based upon NASCET criteria. The mid to distal right internal carotid artery has appropriate enhance ment and luminal diameter. LEFT CAROTID: The origin of the left carotid artery has appropriate enhancement and luminal diameter . The left common carotid artery has appropriate enhancement and luminal diameter. There is a combi nation of calcified and noncalcified plaque in the left carotid bifurcation and the proximal left int ernal carotid artery. Evaluation is limited by poor contrast bolus, as well as attenuation artifact secondary to cervical fusion hardware. There appears to be at least moderate stenosis based upon ELIZABETH CET criteria. A focal short segment severe stenosis is suspected just beyond a linear filling defect . This linear filling defect and the short segment stenosis are at approximately the C3 level. The linear defect may be artifactual, but a short segment dissection proximal to the short segment severe stenosis cannot be excluded. Conventional angiography is recommended. Bilateral cervical vertebral arteries are grossly patent throughout their course in the neck. Bilate ral subclavian arteries are also patent. IMPRESSION: 1. 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 2. Short segment severe stenosis involving the proximal left internal carotid artery with questionab le focal dissection. Evaluation is limited due to beam attenuation artifact and poor contrast bolus. Conventional angiography is recommended. First attempt to give results of the study were discussed with Dr. Chou on 05/30/2018 at 10:59 a.m. Findings conveyed 05/30/18 at approximately 3p.m. CODE CR POS: FIORELLA
[2018-05-30 16:40] VITALS: BMI 51.1
--- NOTE | 2018-05-30 16:54 | MRI ---
MRI BRAIN WITHOUT CONTRAST: HISTORY: Evaluate for CVA. Altered mental status. FINDINGS: No hemorrhage on the axial gradient echo sequence. Calvarium has a normal T1 marrow signal intensity. Midline brain parenchymal structures are unremark able. Note is made of a partially empty sella. There are T2 and FLAIR white matter hyperintensities which are nonspecific. Central arterial flow voids are maintained. Partial opacification of the mastoid air cells. There are small areas of restricted diffusion in the right bonilla radiata. There are small cortical areas of restricted diffusion in the left post central sulcus with larger areas of restricted diffusi on involving the left temporal lobe. A small focus of restricted diffusion is also noted in the left occipital lobe. IMPRESSION: Multifocal infarcts as described above. The patient does have significant atherosclerotic disease in both carotid arteries as noted on the recent CT angiogram of the neck that was performed. POS: FIORELLA
[2018-05-30] MEDS: Clopidogrel Bisulfate 75 MG TAB PO SCH (17:50)
[2018-05-30] MEDS: Amlodipine 10 MG TAB PO SCH (21:02)
[2018-05-30] MEDS: Atorvastatin Calcium 20 MG TAB PO SCH (21:02)
--- NOTE | 2018-05-31 01:41 | CON ---
DATE OF CONSULTATION: 05/30/2018 REQUESTING PHYSICIAN: Ezio Chou MD PRIMARY CARE PHYSICIAN: Wil Bronson MD OTHER CONSULTING PHYSICIANS: 1. Juan Bull MD. 2. Adam Zuniga MD. CHIEF COMPLAINT: Difficulty speaking. HISTORY OF PRESENT ILLNESS: The patient is an 82-year-old white woman with diabetes, who is morbidly obese. She lives independently, although she says that she has been having less energy of late, and she frequently requires oxygen. Her family checked on her on , the , and found that she was having trouble speaking, and their first thought was that her blood sugar was low as she had some difficulty in picking her words with hypoglycemia in the past, but when they found that her blood sugar was normal, they called EMS. Her speech had essentially normalized by the time they arrived, but en route, she became confused and had difficulty speaking at all. Since then, her speech has improved, although she still has difficulty picking her words and articulating them. During this hospitalization, she had to be transferred to the intensive care unit because of shortness of breath, although that seemed to fairly spontaneously resolve. Her head CT on admission showed no acute changes. A carotid ultrasound done the following day had a suggestion of some modest disease on the left side, but there were some limitations to the study because of some motion artifact. A CT angiography today was interpreted as having bilateral significant carotid stenoses and even raised the question of limited dissection involving the left carotid system. An MRI of the brain was done today, but the report is not ready for review as yet. PAST MEDICAL HISTORY: Significant for hypertension, diabetes, hypercholesterolemia, previous cervical fusion, cholecystectomy, hysterectomy, and lumbar laminectomy. HOME MEDICATIONS: 1. Tradjenta. 2. Levemir insulin. 3. Caduet (amlodipine/atorvastatin). 4. Coreg. 5. Benicar. 6. Lasix. 7. Cytomel. 8. Symbicort and albuterol inhalers p.r.n. 9. Baby aspirin a day. 10. Vitamin and mineral supplements. 11. She is currently on IV Levaquin and has been started on Plavix. ALLERGIES: SHE DENIES ANY MEDICAL ALLERGIES, BUT REPORTS DIFFICULTIES WITH ADHESIVE TAPE. SOCIAL HISTORY: She has never smoked. FAMILY HISTORY: Significant for multiple siblings with cerebrovascular disease and coronary disease. REVIEW OF SYSTEMS: Notable for some baseline shortness of breath. She said she has been told by early childhood education specialist that she really should wear her oxygen full-time rather than just occasionally. She reports about a year's worth of decreasing energy and exercise tolerance. She denies any recent illnesses, any chest pain, any orthopnea, any significant changes in her weight. PHYSICAL EXAMINATION: VITAL SIGNS: She is 5 feet 2 inches, weight 279-1/2 pounds. HEENT: She has no xanthelasma. NECK: No JVD. She has a left carotid bruit. LUNGS: She has right basilar rales and left-sided wheezes. HEART: She has a regular rate and rhythm without obvious murmur or gallop. ABDOMEN: Quite protuberant, soft, nontender. EXTREMITIES: She has 2 to 3+ pretibial edema. NEUROLOGIC: Cranial nerves 2 through 12 are grossly intact. While fine motor with the right hand seems intact as does elbow flexors of the right upper extremity. Elbow extensor seems slightly weak. Otherwise, extremity strength testing seems grossly normal. LABORATORY DATA: Show white count 5.3, hemoglobin of 12.4, hematocrit 39.4, and platelets 146,000. INR was 1.2, PTT was 27.4. On admission, her electrolytes were normal. Her BUN 64 and creatinine 1.85 with an estimated GFR of 26. Followup renal functions showing BUNs of high 40s to low 50s, creatinines of 1.46 to most recently this morning of 1.71 with estimated GFRs of around 30. Her calcium is 10.1, albumin 3.8. LFTs were normal. Glucose on admission was 101. Troponins were mildly elevated and trended down, starting off at 0.157 at presentation, about 3 hours later 0.139, and then another 3 hours later 0.112. DIAGNOSTIC DATA: Her chest x-ray shows varying degrees of edema and atelectasis. Her carotid ultrasound shows right-sided internal carotid velocities of 119, 95, and 85, and common carotid velocities of 122, 105, and 104 with a ratio of 0.98. There is some modest degree of plaquing in the bulb and proximal internal carotid without any real spectral broadening. On the left side, her internal carotid velocities are 162, 99, and 75, and the common carotid velocities are 99, 95, and 106, with a ratio of 1.53. There is a modest degree of plaque, perhaps a little bit more so than on the right. There is still not very much spectral broadening or turbulence, but it is a little bit more noticeable than on the right. CTA in my opinion is of poor enough quality related to timing of the dye injection, opacification, and scattered artifact from cervical hardware as to almost beyond interpretable. On axial cuts, I think that I can see a very small amount of narrowing of the right carotid in the 30% or 40% range on the left side, perhaps it is a little bit worse than that. Only on sagittal sections do I see anything that I would think would account for the description of a localized dissection and that is on the common carotid artery, not on the internal carotid. Overall, I think the CTA is of poor enough quality that not much in the way of conclusions can be drawn from it. My review of the MRI, I think I can see what probably represents a left parietal stroke, but I am more than willing to admit that I have no expertise in reading MRIs of this sort. Her echocardiogram report describes an LVEF of 50% to 55% with mild enlargement of both atria and the right ventricle. IMPRESSION AND RECOMMENDATIONS: Clinically, the patient has had a left hemispheric stroke based upon her speech problems and perhaps some subtle right upper extremity weakness. She was able to sign her name for me without any difficulties, so I think fine motor is okay. She has been having coughing spells after eating on a fairly consistent basis. I suspect that she is having some microaspiration and speech therapy could be of use to deal with not only her speech, but her swallowing, and it could very well be that some element of aspiration is what accounted for her acute episode of respiratory distress that led to your transfer to the intensive care unit earlier in our hospital stay. I suspect that her cervical carotid can be implicated in this stroke. The studies are suboptimal with ultrasound having had some motion artifact and the CTA being a fairly poor quality. Given the patient's body habitus and cervical hardware, there probably is not a lot of utility in repeating the CTA even if the patient's renal function was not an issue. I do not think that at this juncture with her tenuous physiologic state, primarily pulmonary, and having just been started on Plavix that there is anything particularly pressing about surgically addressing her carotid disease if warranted. My preference at this point would be to give her perhaps a week or two to get into better shape. I can see her in the office and repeat a carotid ultrasound at that time when she is in better position to fully cooperate with the study. Job ID: [id number]
[2018-05-31 06:10] LABS: Anion Gap 11 mmol/L (10-20); BUN (Urea Nitrogen) 56 mg/dL (9.8-20.1); Calc. Creatinine Clearance 40 mL/min (70-130); Calcium 9.3 mg/dL (7.8-10.44); Carbon Dioxide 29 mmol/L (23-31); Chloride 105 mmol/L (98-107); Estimated GFR-MDRD 22; Glucose 114 mg/dL (83-110); Potassium 5.1 mmol/L (3.5-5.1); Sodium 140 mmol/L (136-145)
[2018-05-31] MEDS: Mometasone/Formoterol 120 PUFF INHALER INH SCH (07:30)
[2018-05-31 08:00] VITALS: TEMP 98.3
[2018-05-31] MEDS ORDERED: RENALLY ADJUST ABX IVPB PRN (09:24)
[2018-05-31] MEDS: Multivit, Therapeutic 1 TAB PO SCH (09:56)
[2018-05-31] MEDS: Famotidine 20 MG TAB PO SCH (09:56)
[2018-05-31] MEDS: Liothyronine Sodium 5 MCG TAB PO SCH (09:57)
[2018-05-31] MEDS: Calcium Carbonate + Vit D 1 TAB PO SCH (09:57)
[2018-05-31] MEDS: Aspirin 81 mg Enteric Coated Tablet PO SCH (09:57)
[2018-05-31] MEDS: Carvedilol 6.25 MG TAB PO SCH (10:28)
[2018-05-31] MEDS: Heparin 5,000 UNITS/ML VIAL SC SCH (10:30)
--- NOTE | 2018-05-31 11:23 | PRG ---
DATE OF SERVICE: 05/31/2018 SUBJECTIVE: She is awake, alert, and responsive. She is walking in the halls without any distress. OBJECTIVE: VITAL SIGNS: Saturations are 93 on 3 L, respiratory rate of 16, temperature 98, pulse 50, and blood pressure 120\72_ CHEST: Decreased breath sounds. No wheezing. CARDIAC: Normal S1 and S2. no murmers gallops. LABORATORY DATA: Creatinine 2.15. IMPRESSION: 1. Status post cerebrovascular accident, aphasia, improved. 2. Respiratory failure, chronic hypoxemia, stable. PLAN: Continue PT, supportive care. Eventually placement. Job ID: [id number] MTDD
[2018-05-31 11:42] VITALS: BP 145/65
[2018-05-31] MEDS: Clopidogrel Bisulfate 75 MG TAB PO SCH (16:12)
--- NOTE | 2018-05-31 16:39 | DIS ---
DATE OF ADMISSION: 05/26/2018 DATE OF DISCHARGE: 05/31/2018 DISCHARGE DISPOSITION: [facility]. ALLERGIES: THE PATIENT IS ALLERGIC TO ADHESIVES. DISCHARGE MEDICATIONS: 1. Tradjenta 5 mg every other day. 2. Albuterol inhaler as needed. 3. [place] as needed. 4. Tylenol 325 mg twice a day. 5. Aspirin 81 mg daily. 6. Levaquin 250 mg daily for the next 4 days, then discontinue. 7. Symbicort 160/4.5 two puffs b.i.d. as needed. 8. Calcium with vitamin D daily. 9. Carvedilol 12.5 mg daily. 10. Vitamin D3 of 6000 units daily. 11. Vitamin B12 of 500 mcg daily. 12. Cytomel (liothyronine) 5 mcg b.i.d. 13. Multivitamin one tablet daily. 14. Amlodipine 10 mg at bedtime. 15. Lipitor 40 mg at bedtime. 16. Plavix 75 mg daily. 17. Lasix 40 mg daily. 18. DuoNeb every six hours as needed. INPATIENT CONSULTANTS: 1. Pulmonary, Dr. Croft. 2. Cardiovascular, Dr. Slaughter. 3. Neurology, Dr. Bull. The patient was seen and examined on the day of discharge. Denies any new complaints. No chest pain, shortness of breath, or palpitations reported. No new focal deficit. DIAGNOSTIC TESTS: 1. CT scan of the brain on admission was negative for acute findings. 2. Chest x-ray on admission was negative for infiltrate. 3. Carotid Doppler showed elevated velocity within the internal carotid artery on the left (moderate stenosis in the left internal carotid artery). 4. CT angiography of the neck showed short segment severe stenosis involving the right carotid bifurcation as well as short segment severe stenosis involving the proximal left internal carotid artery. 5. MRI of the brain showed multifocal infarct in the right bonilla radiata, left postcentral sulcus with large areas of restricted diffusion involving the left temporal lobe. There was a small focus of restricted diffusion in the left occipital lobe as well. BRIEF HOSPITAL COURSE: The patient is an 82-year-old female with hypertension, hyperlipidemia, diabetes mellitus type 2, breast cancer, and degenerative joint disease, presented to the hospital with expressive aphasia as well as some confusion. She was admitted to the Stroke Unit with a diagnosis of acute CVA. Please refer to the history and physical by Dr. Chou for further details. She underwent workup as discussed above. The patient was evaluated by multiple consultants including Neurology Dr. Bull, Critical Care Dr. Croft, as well as Cardiovascular Dr. Slaughter. She was found to have bilateral carotid stenosis. MRI showed multiple infarcts. Echocardiogram showed ejection fraction of 50% to 55%. She also had a Code Green on the 05/27/2018. For this reason, she was transferred to intensive care unit. She was diagnosed with acute on chronic diastolic heart failure with flash pulmonary edema. She will continue Lasix at 40 mg daily. She needs congestive heart failure monitoring with daily weights. FINAL DIAGNOSES: 1. Toxic metabolic encephalopathy with expressive aphasia secondary to acute cerebrovascular accident. 2. Acute hypoxic and hypercapnic respiratory failure secondary to pulmonary edema/acute on chronic diastolic heart failure exacerbation. ACC stage C. 3. Bilateral carotid artery stenosis. 4. Hypertension. 5. Hyperlipidemia. 6. Diabetes mellitus, type 2. 7. Breast cancer. 8. Chronic anemia. 9. Morbid obesity with a BMI of 51.1. 10. Chronic kidney disease, stage 3. 11. Elevated troponin secondary to demand ischemia. PLAN: Plan of care was discussed with the patient and the family in detail. They stated understanding. TIME SPENT: Total time coordinating the discharge of this patient was 38 minutes. Job ID: [id number] MTDD
[2018-05-31] MEDS ORDERED: Heparin 5,000 UNITS/ML VIAL SC SCH (21:00)
--- NOTE | 2018-06-01 14:42 | EKG ---
Test Reason : Blood Pressure : / mmHG Vent. Rate : 052 BPM Atrial Rate : 052 BPM P-R Int : 134 ms QRS Dur : 082 ms QT Int : 432 ms P-R-T Axes : 009 056 050 degrees QTc Int : 401 ms Sinus bradycardia Low voltage QRS Borderline ECG Confirmed by MAIDA PEREZ, DAMON Hart ([id number]), editor magazine LINDA LEMUS ([id number]) on 06/01/2018 2:42:00 PM Referred By: Confirmed By:DAMON BEY MD
== END 2018-05-31 16:23 | DRG 64 ==
LOC: ERS 21:43 → 2SE 23:30 → CCU 05-27 13:43 → 2SE 05-28 12:30
PROVIDERS: ADMIT Hospitalist; ATTEND Hospitalist
PROC: 5A09457 Assistance with Respiratory Ventilation, 24-96 Consecutive Hours, Continuous Positive Airway Pressure (ICD-10-PCS; principal; 2018-05-26)
DX: I63.9 Cerebral infarction, unspecified (principal); I50.33 Acute on chronic diastolic (congestive) heart failure; G92 Toxic encephalopathy; J96.01 Acute respiratory failure with hypoxia; I13.0 Hypertensive heart and chronic kidney disease with heart failure and stage 1 through stage 4 chronic kidney disease, or unspecified chronic kidney disease; I24.8 Other forms of acute ischemic heart disease; Z68.43 Body mass index [BMI] 50.0-59.9, adult; N18.4 Chronic kidney disease, stage 4 (severe); J96.12 Chronic respiratory failure with hypercapnia; N17.9 Acute kidney failure, unspecified; R47.01 Aphasia; E11.22 Type 2 diabetes mellitus with diabetic chronic kidney disease; I65.23 Occlusion and stenosis of bilateral carotid arteries; E78.5 Hyperlipidemia, unspecified; D63.8 Anemia in other chronic diseases classified elsewhere; E66.01 Morbid (severe) obesity due to excess calories; C50.919 Malignant neoplasm of unspecified site of unspecified female breast; E78.00 Pure hypercholesterolemia, unspecified; Z98.1 Arthrodesis status; Z79.82 Long term (current) use of aspirin; Z88.8 Allergy status to other drugs, medicaments and biological substances; Z79.02 Long term (current) use of antithrombotics/antiplatelets; E03.9 Hypothyroidism, unspecified; J44.9 Chronic obstructive pulmonary disease, unspecified; Z79.4 Long term (current) use of insulin; Z96.653 Presence of artificial knee joint, bilateral; I16.0 Hypertensive urgency
CPT/HCPCS: 36415; 36416; 70450; 70498; 70551; 71045; 80048; 80053; 80061; 81003; 82550; 82553; 82805; 83735; 83880; 84484; 85025; 85610; 85730; 86850; 86900; 86901; 93005; 93010; 93306; 93880; 94640; 94660; A4353; G8978-GP-CL; G8978-GP-CM; G8979-GP-CI; G8987-GO-CK; G8987-GO-CL; G8988-GO-CI; G8988-GO-CJ; G8996-GN-CJ; G8997-GN-CH; J1644; J1940; J1956; J2060; J7070; J7620

== ENCOUNTER 2018-08-09 14:04 | Outpatient (CLI) | payer MEDICARE ==
--- NOTE | 2018-08-09 14:55 | RAD ---
CHEST 2 VIEWS: HISTORY: Left-sided CVA. COMPARISON: Radiograph 07/05/2018. FINDINGS: Heart size is mildly enlarged. There are atelectatic changes of the lung bases. Opacities have impr rikki. No pneumothorax. Small effusions. IMPRESSION: Overall improvement with decreased pleural fluid and bibasilar infiltrates. POS: TPC
== END 2018-08-09 14:05 | disposition home or self-care (01) ==
LOC: RAD 14:04
PROVIDERS: ATTEND Thoracic Surgery (Cardiothoracic Vascular Surgery)
DX: I63.9 Cerebral infarction, unspecified (principal); R91.8 Other nonspecific abnormal finding of lung field; Z79.4 Long term (current) use of insulin
CPT/HCPCS: 36415; 71046; 80048

== ENCOUNTER 2018-10-26 16:03 | Outpatient (CLI) | payer MEDICARE ==
--- NOTE | 2018-10-26 16:27 | RAD ---
Exam: Chest 2 views HISTORY: Left-sided CVA. Dyspnea. COMPARISON: 08/09/2018 FINDINGS: Atherosclerosis. Cardiomegaly. Pulmonary vessels are slightly prominent. Bibasilar pleural effusions with adjacent parenchymal change. Thickening of the minor fissure. Stable surgical clips in the left axilla. Stable cervical fusion hardware No pneumothorax IMPRESSION: Congestive heart failure.
== END 2018-10-26 16:04 | disposition home or self-care (01) ==
LOC: RAD 16:03
PROVIDERS: ATTEND Internal Medicine Pulmonary Disease
DX: R06.00 Dyspnea, unspecified (principal); I50.9 Heart failure, unspecified
CPT/HCPCS: 71046

== ENCOUNTER 2018-11-29 11:56 | Inpatient (IN) | payer MEDICARE ==
--- NOTE | 2018-11-29 12:52 | RAD ---
PORTABLE CHEST: DATE: 11/29/2018. PROVIDED CLINICAL HISTORY: congestive heart failure. FINDINGS: Comparison is made with the study dated 10/26/2018. Cardiac silhouette remains enlarged. Vascular ramon cification involves the aortic arch. Evaluation is limited by patient body habitus. Elevation of th e right hemidiaphragm and/or right basilar pleural parenchymal opacity persists. No evidence for pne umothorax. IMPRESSION: Stable radiographic appearance of the chest. POS: OFF
[2018-11-29 13:20] LABS: #Eosinphils 0.2 thou/uL (0.0-0.7); #Lymphocytes 0.5 thou/uL (1.20-3.40); #Monocytes 0.4 thou/uL (0.11-0.59); #Neutrophils 5.4 thou/uL (1.40-6.50); %Eosinophils 3.5 % (0.0-10.0); %Lymphocytes 7.3 % (21.0-51.0); %Monocytes 6.7 % (0.0-10.0); %Neutrophils 82.6 % (42.0-75.0); Hemoglobin 8.8 g/dL (12.0-16.0); Mean Corpuscular HGB CONC 31.1 g/dL (32.0-36.0); Mean Corpuscular Hemoglobin 30.8 pg (27.0-31.0); Mean Platelet Volume 11.3 fL (7.4-10.4); Platelet Count 111 thou/uL (130-400); RBC Distribution Width 16.9 % (11.5-14.5); Red Blood Cell (RBC) Count 2.85 mill/uL (4.20-5.40); White Blood Cell (WBC) Count 6.5 thou/uL (4.8-10.8)
[2018-11-29 13:40] LABS: ALT (SGPT) 18 U/L (8-55); AST (SGOT) 35 U/L (5-34); Albumin 3.6 g/dL (3.4-4.8); Alkaline Phosphatase 86 U/L (40-150); Anion Gap 14 mmol/L (10-20); BUN (Urea Nitrogen) 78 mg/dL (9.8-20.1); Bilirubin, Total 0.5 mg/dL (0.2-1.2); CK (CPK) 135 U/L (29-168); Calc. Creatinine Clearance 0 mL/min (70-130); Calcium 10.4 mg/dL (7.8-10.44); Carbon Dioxide 29 mmol/L (23-31); Chloride 97 mmol/L (98-107); Estimated GFR-MDRD 15; Globulin 2.5 g/dL (2.4-3.5); Glucose 76 mg/dL (83-110); Hypochromia SLIGHT = 6-15 cells (100X) (0-5/hpf); MDiff Complete? YES; Macrocytosis SLIGHT = 6-15 cells (100X) (0-5/hpf); Ovalocytes SLIGHT = 2-5 cells (100X) (0-1/hpf); Platelet Morphology Comment Appears Decreased; Polychromasia SLIGHT = 2-3 cells (100X) (0-2/hpf); Protein, Total 6.1 g/dL (6.0-8.3); Sodium 135 mmol/L (136-145); Tear Drops SLIGHT = 2-5 cells (100X) (0-1/hpf)
[2018-11-29] MEDS ORDERED: Aspirin Chewable 81 MG TAB ONE (14:55)
[2018-11-29 16:38] LABS: Troponin I 0.016 ng/mL (< 0.028)
[2018-11-29] MEDS ORDERED: Ondansetron ODT 4 MG TAB PO PRN (18:08)
[2018-11-29] MEDS ORDERED: Ondansetron PF 4 MG/2 ML Vial IVP PRN (18:08)
[2018-11-29] MEDS ORDERED: Dextrose 50% Abboject 50 ML SYRINGE SLOW IVP PRN (18:08)
[2018-11-29] MEDS ORDERED: Dextrose 5% in Water 1,000 ML IV PRN (18:08)
[2018-11-29] MEDS ORDERED: HumaLOG 300 UNITS/3 ML VIAL SC PRN (18:08)
[2018-11-29] MEDS ORDERED: Furosemide 40 MG/4 ML VIAL SLOW IVP SCH (18:30)
[2018-11-29] MEDS ORDERED: Mometasone/Formoterol 120 PUFF INHALER INH PRN (18:30)
[2018-11-29] MEDS ORDERED: Sodium Chloride 0.9% 10 ML ONE (18:58)
[2018-11-29] MEDS: Atorvastatin Calcium 40 MG TAB PO SCH (20:19)
[2018-11-29] MEDS: hydrALAZINE 25 MG TAB PO SCH (20:19)
[2018-11-29] MEDS: Insulin Glargine 20 UNITS in Pre-Filled Syringe 1 EACH SC SCH (20:31)
[2018-11-29] MEDS: Isosorbide Mononitrate 20 MG TAB PO SCH (21:05)
[2018-11-29] MEDS: Carvedilol 25 MG TAB PO SCH (21:08)
[2018-11-29] MEDS: ALPRAZolam 0.5 MG TAB PO SCH (23:59)
--- NOTE | 2018-11-30 00:20 | HP ---
PRIMARY CARE PHYSICIAN: Wil Bronson MD CHIEF COMPLAINT: Cough and shortness of breath and swelling down the lower extremities. HISTORY OF PRESENT ILLNESS: Ms. Higgins is a pleasant 83-year-old female with a past medical history of chronic diastolic heart failure, hypertension, hyperlipidemia, diabetes mellitus, chronic anemia, bilateral carotid artery stenosis, chronic kidney disease, who had presented to [facility] earlier today after she experienced worsening cough and shortness of breath following with "fluid overloaded." The patient states that over the last 3 to 4 days she has noticed fluid building up in her legs and in her abdomen. She states that she has been using her home O2 at 2.5 L an hour; however, states that she had progressively worsening shortness of breath. She states that she has been taking her home Lasix along with metolazone which she states was recently added by her logging contractor, Dr. Berg. She states that she is making less and less urine and she was sent to the ER by her final assembly worker, Dr. Sarmad Fox. Currently, she denied any fever, chills, any headache, blurred vision or dizziness, any chest pain, palpitations, denies any nausea, vomiting, or any change in her stool. She underwent a chest x-ray in the emergency department, which showed stable appearance of the chest. The patient underwent an echocardiogram back in May of 2018, which revealed an ejection fraction of 50% to 55%. Her serial troponins so far x2. BNP is elevated at 620.6, creatinine 2.96, and estimated GFR of 15. REVIEW OF SYSTEMS: All other systems reviewed and found to be negative unless mentioned in the HPI. PAST MEDICAL HISTORY: Hypertension, hyperlipidemia, diastolic heart failure, diabetes mellitus type 2, chronic anemia, bilateral carotid artery stenosis, chronic kidney disease stage 3, morbid obesity. PAST SURGICAL HISTORY: Status post cholecystectomy, hysterectomy, lumbar laminectomy, tonsillectomy, wrist surgery, bilateral knee replacement, lumpectomy on left breast. PSYCHIATRIC HISTORY: None. SOCIAL HISTORY: She denies alcohol, tobacco, or illicit drug use. She is a and currently lives with her son, Nicholas. KNOWN ALLERGIES: To adhesive. CURRENT HOME MEDICATIONS: 1. Aspirin 81 mg daily. 2. Carvedilol 25 p.o. b.i.d. 3. Levothyroxine 100 mcg p.o. daily. 4. Levemir 20 units twice daily. 5. Tradjenta 5 mg daily. 6. Furosemide 40 mg twice daily. 7. Symbicort 80/4.5 mcg 2 puff inhalation twice daily. 8. ProAir HFA inhaler 90 mcg every 6 hours as needed for shortness of breath or wheezing. 9. Breo Ellipta 100 mcg/25 mcg one inhalation daily. 10. Allopurinol 300 mg oral daily. 11. Amlodipine 5 mg oral daily. 12. Alprazolam 0.5 mg as needed for anxiety. 13. Atorvastatin 40 mg oral daily. 14. Plavix 75 mg oral daily. 15. Hydralazine 50 mg oral twice daily. 16. Isosorbide mononitrate 10 mg oral twice daily. 17. Metolazone 5 mg daily Wednesday through Wednesday. PHYSICAL EXAMINATION: VITAL SIGNS: Blood pressure 138/71, pulse 50, respirations 20 nonlabored, temp 97.4 degrees Fahrenheit, and O2 saturations 90% on 3 L of oxygen via nasal cannula in place. GENERAL: The patient is awake, alert, and oriented x3. She is currently lying comfortably in bed and in no acute distress. HEENT: Atraumatic, normocephalic. Pupils are round and reactive to light. Extraocular muscles intact. Moist mucous membranes noted. NECK: Soft and supple. Trachea midline. CARDIOVASCULAR: Positive S1 and S2. Regular rate and rhythm. No murmur auscultated. RESPIRATORY: Coarse breath sounds heard bilaterally, worse at the bases. ABDOMEN: Soft and nontender. Gjsg-jg-hkntraau fluid distention noted with normal bowel sounds present. MUSCULOSKELETAL: Strength 5+ bilaterally in upper and lower extremities. Pedal and radial pulses 2+ bilaterally. 3+ pitting edema noted in bilateral lower extremities. NEUROLOGIC: Cranial nerves 2 through 12 grossly intact. No focal deficits noted. Speech intact and normal. Gait not assessed. SKIN: Warm, dry, and intact. Chronic skin changes noted in bilateral lower extremities and multiple diffuse bruising noted in upper extremities. PSYCHIATRIC: Good mood and affect. LABORATORY DATA: WBC 6.5, RBC 2.85, hemoglobin 8.8, hematocrit 28.2, MCV 99.0, and platelet 111. Sodium 135, potassium 5.0, anion gap 14, BUN 78, creatinine 2.96, estimated GFR 15, glucose 76, AST 35, ALT 18. Troponin 0.028, 0.016. BNP 620.6. DIAGNOSTIC IMAGING: Portable chest x-ray revealed stable radiographic appearance of the chest. ASSESSMENT AND PLAN: 1. Acute on chronic kidney disease, stage 3. The patient appears fluid overloaded. She will be maintained on her home regimen at this time and her primary final assembly worker, Dr. Fox will be consulted for further evaluation. 2. Chronic diastolic heart failure. The patient as above will be restarted on her home regimen. She will be continued on furosemide and metolazone. However, furosemide will be IV 40 mg twice daily. 3. Anasarca as above. 4. Hypertension, currently stable. She will be restarted on her home regimen. 5. Hyperlipidemia, continue on home statin. 6. Diabetes mellitus. She will be continued on Levemir 20 units twice daily along with an insulin sliding scale with frequent Accu-Cheks during the hospital course. 7. Hypothyroidism. Continue home levothyroxine and recheck TSH. 8. Chronic anemia, currently stable at this time. 9. Deep venous thrombosis and gastrointestinal prophylaxis. 10. Code status, full code. 11. Surrogate decision maker is her son, Nicholas Ríos. DISPOSITION: Pending further workup and clinical findings. Job ID: [id number]
[2018-11-30] MEDS ORDERED: Sodium Chloride 0.9% 10 ML ONE ×2 (05:41→12:24)
[2018-11-30] MEDS: Furosemide 40 MG/4 ML VIAL SLOW IVP SCH ×2 (05:53→15:23)
[2018-11-30] MEDS: ALPRAZolam 0.5 MG TAB PO SCH ×4 (05:54→23:54)
[2018-11-30 06:51] LABS: #Eosinphils 0.2 thou/uL (0.0-0.7); #Lymphocytes 0.5 thou/uL (1.20-3.40); #Monocytes 0.5 thou/uL (0.11-0.59); #Neutrophils 4.5 thou/uL (1.40-6.50); %Basophils 0.1 % (0.0-1.0); %Eosinophils 3.8 % (0.0-10.0); %Lymphocytes 8.6 % (21.0-51.0); %Neutrophils 78.6 % (42.0-75.0); Hemoglobin 8.4 g/dL (12.0-16.0); Mean Corpuscular HGB CONC 32.2 g/dL (32.0-36.0); Mean Corpuscular Hemoglobin 31.8 pg (27.0-31.0); Mean Corpuscular Volume 98.7 fL (78.0-98.0); Mean Platelet Volume 10.8 fL (7.4-10.4); Platelet Count 97 thou/uL (130-400); RBC Distribution Width 16.8 % (11.5-14.5); Red Blood Cell (RBC) Count 2.65 mill/uL (4.20-5.40); White Blood Cell (WBC) Count 5.8 thou/uL (4.8-10.8)
[2018-11-30 07:06] LABS: Anion Gap 15 mmol/L (10-20); BUN (Urea Nitrogen) 80 mg/dL (9.8-20.1); Calc. Creatinine Clearance 30 mL/min (70-130); Calcium 9.9 mg/dL (7.8-10.44); Carbon Dioxide 27 mmol/L (23-31); Chloride 98 mmol/L (98-107); Estimated GFR-MDRD 15; Glucose 100 mg/dL (83-110); Potassium 4.7 mmol/L (3.5-5.1); Sodium 135 mmol/L (136-145)
[2018-11-30] MEDS ORDERED: CEFAZOLIN 2 GM in Premix Bag 1 BAG IVPB SCH (07:15)
[2018-11-30] MEDS: Mometasone/Formoterol 120 PUFF INHALER INH SCH ×2 (07:22→18:10)
[2018-11-30 07:26] LABS: Hep C IgG Ab Non-Reactive (NonReactive); Hep C Index 0.04 S/CO (0-0.79)
[2018-11-30] MEDS: Metolazone 5 MG TAB PO SCH (07:41)
--- NOTE | 2018-11-30 08:57 | ULT ---
VASCULAR MAPPING ULTRASOUND OF BILATERAL UPPER EXTREMITIES: Date: 11/30/18 COMPARISON: None. HISTORY: Vascular mapping requested in preparation for dialysis access. TECHNIQUE: Multiplanar [place] scale sonographic imaging of the vascular structures of bilateral upper extremitie s obtained with color flow and spectral analysis. FINDINGS: The internal jugular vein, subclavian vein, and axillary vein appear patent bilaterally. The cephalic vein and basilic vein are patent bilaterally. VESSEL DIAMETER (mm) Right Brachial Artery 4.6 Right Radial Artery 1.9 Right Ulnar Artery 2.3 Left Brachial Artery 4.5 Left Radial Artery 3.2 Left Ulnar Artery 2.5 RIGHT CEPHALIC VEIN Above Elbow Proximal 3.5 Above Elbow Mid 3.6 Above Elbow Distal 3.7 At Elbow 4.0 Below Elbow Proximal 1.4 Below Elbow Mid 1.7 Below Elbow Distal 4.2 RIGHT BASILIC VEIN Above Elbow Proximal 5.0 Above Elbow Mid 4.3 Above Elbow Distal 5.6 At Elbow 5.1 Below Elbow Proximal 2.5 Below Elbow Mid 2.2 Below Elbow Distal 2.0 LEFT BASILIC VEIN Above Elbow Proximal 6.2 Above Elbow Mid 1.5 Above Elbow Distal 1.7 At Elbow 1.6 Below Elbow Proximal 3.9 Below Elbow Mid 5.1 Below Elbow Distal 2.2 LEFT CEPHALIC VEIN Above Elbow Proximal 4.3 Above Elbow Mid 3.9 Above Elbow Distal 3.9 At Elbow 4.6 Below Elbow Proximal 2.9 Below Elbow Mid 1.5 Below Elbow Distal 3.7 IMPRESSION: Vascular mapping ultrasound of bilateral upper extremities as detailed above. Transcribed Date/Time: 11/30/2018 9:33 AM
[2018-11-30] MEDS ORDERED: Tuberculin PPD 0.1 ML VIAL I-DERMAL SCH (09:00)
[2018-11-30] MEDS: Carvedilol 25 MG TAB PO SCH ×2 (10:24→20:47)
[2018-11-30] MEDS: Isosorbide Mononitrate 20 MG TAB PO SCH ×2 (10:26→20:48)
[2018-11-30] MEDS: Liothyronine Sodium 5 MCG TAB PO SCH (10:26)
[2018-11-30] MEDS: Allopurinol 300 MG TAB PO SCH (10:27)
[2018-11-30] MEDS: Enoxaparin Sodium 30 MG/0.3 ML SYRINGE SC SCH (10:28)
[2018-11-30] MEDS: Aspirin 81 mg Enteric Coated Tablet PO SCH (10:28)
[2018-11-30] MEDS: hydrALAZINE 25 MG TAB PO SCH ×2 (10:28→20:47)
[2018-11-30] MEDS: Insulin Glargine 20 UNITS in Pre-Filled Syringe 1 EACH SC SCH ×2 (10:29→21:25)
[2018-11-30] MEDS ORDERED: Fentanyl 100 MCG/2 ML VIAL ONE (12:16)
[2018-11-30] MEDS ORDERED: Bupivacaine HCl 0.5%/Epinephrine 1:200,000/PF 30 ml Vial ONE (12:19)
[2018-11-30] MEDS ORDERED: Lidocaine 2% PF 5 ML VIAL ONE (12:19)
[2018-11-30] MEDS ORDERED: Heparin 10,000 UNITS/1 ML VIAL ONE (12:19)
--- NOTE | 2018-11-30 12:33 | CON ---
DATE OF CONSULTATION: HISTORY OF PRESENT ILLNESS: Omer Higgins is an 83-year-old female, who had a stroke in May 2018, spent some time in a fpc, but has returned home. She is on home oxygen. Her son helps her with mobility. She is not able to ambulate on her own. She is able to help with transfers. She is nonambulatory. Mobility mostly by wheelchair. She is insulin-dependent diabetic. Hypertension, morbidly obese, BMI 51, with chronic kidney disease, now in need of dialysis access. Her hemoglobin is 8.4. Potassium 4.7, BUN 80, creatinine 3.02, GFR 15. She is fluid overloaded and unresponsive to diuretics. I have been asked by Nephrology, Dr. Sarmad Fox, to place a dialysis catheter. She did have a marking ultrasound performed, and her cephalic vein right is 3.5, 3.6, 3.7 mm, at the elbow 4 mm, and in the left cephalic vein is 4.3, 3.9, 4.6, and 3.7 in forearm. Plan would be for a left arm fistula in the future. ALLERGIES: ADHESIVE. HABITS: Tobacco, none. Alcohol, none. PAST MEDICAL HISTORY: Hypertension, hyperlipidemia, diastolic heart failure; diabetes mellitus type 2, insulin dependent; chronic anemia, bilateral carotid endarterectomies, end-stage renal disease, morbid obesity, metabolic syndrome, arteriosclerotic vascular disease. PAST SURGICAL HISTORY: She has had a left breast cancer 10 years ago, radiation chemotherapy, multiple skin cancers, appendectomy, total abdominal hysterectomy, cervical spine surgery, 2 back surgeries, bilateral total knee replacements, tonsillectomies, bilateral carpal tunnels, hysterectomy. Echocardiogram, May 2018, 50%-55% ejection fraction, mild tricuspid, pulmonic and mitral regurgitation, mildly enlarged right atrium, left atrium mildly enlarged. Record 12/02/2013, cardiac catheterization, Dr. Berg, mild three-vessel coronary artery disease without any flow-limiting disease, well preserved LV function. PHYSICAL EXAMINATION: VITAL SIGNS: Height 5 feet 4 inches, 298 pounds, 51 BMI, 85 heart rate, temperature 97.8 degrees, blood pressure 133/61. HEAD, EYES, EARS, NOSE, AND THROAT: Unremarkable. LUNGS: Clear to auscultation with rhonchi at base. CARDIAC: Regular rate and rhythm. ABDOMEN: Morbidly obese, large pannus. Edematous thickened pannus, dependent. EXTREMITIES: Palpable radial pulses. IV right hand. ASSESSMENT AND PLAN: 1. End-stage renal disease secondary to metabolic syndrome. Plan hemodialysis catheter central line placement today and plan placement of left arm fistula in the future maybe next Wednesday. She understands risks and benefits of procedure and consents. We will plan that today. If she has been n.p.o., she can start dialysis later today or tomorrow per Dr. Fox. I will be out of town the next week, but we will schedule her a week from 12/09/2018 for left arm fistula. If she is discharged home, this can be rescheduled to an outpatient surgery date, on nondialysis day, but we will tentatively schedule that for next Wednesday. Anticipate that she will be here till the end. 2. Home oxygen dependent. 3. Poor mobility. 4. Metabolic syndrome, morbid obesity. 5. Hypertension. 6. Diabetes mellitus, insulin dependent. 7. Diastolic heart failure. Job ID: [id number]
[2018-11-30] MEDS ORDERED: Promethazine HCl 25 MG/ML VIAL IM PRN (13:15)
[2018-11-30] MEDS ORDERED: Promethazine HCl 25 MG/ML VIAL SLOW IVP PRN (13:15)
[2018-11-30] MEDS ORDERED: Ondansetron HCl/PF 4 MG/2 ML Vial IVP PRN (13:15)
--- NOTE | 2018-11-30 14:15 | RAD ---
Frontal radiograph chest: 11/30/2018 COMPARISON: 11/29/2018 HISTORY: Evaluate chest following line placement FINDINGS: There is a left vascular catheter, distal tip overlying the region of the cavoatrial juncti on. There is a right-sided dialysis catheter, distal tip overlying the region of the cavoatrial junction. The superior supraclavicular portion of the right dialysis catheter is not imaged. There is atherosclerotic calcification of the aortic arch. There is elevation of the right hemidiaphragm. There is increased density in the right lung base sugg esting a combination of right basilar airspace disease and right pleural fluid. There is patchy increased linear density in the left base with blunting of the left costophrenic angle as well. IMPRESSION: Lines and tubes as detailed above. No pneumothorax. Bibasilar pleural and parenchymal [place], right greater than left. This suggests edema. Infection or aspiration cannot be excluded.
--- NOTE | 2018-11-30 14:30 | PDOC.PN ---
- Subjective Encounter Start Date: 11/30/18 Encounter Start Time: 14:25 Subjective: f/u for ESRD with initiation of HD planned after HD catheter placement -: today. - Objective Resuscitation Status - Order Detail: 11/29/18 18:08 Resuscitation Status Routine Co-Sign Provider: Resuscitation Status: FULL: Full Resuscitation MAR Reviewed: Yes Vital Signs & Weight: Vital Signs (12 hours) Temp Pulse Resp BP BP Pulse Ox 11/30/18 10:28 85 11/30/18 07:43 97.5 F L 56 L 18 124/60 97 11/30/18 07:22 85 14 98 11/30/18 04:00 97.8 F 65 16 133/61 95 Weight Weight 298 lb 3.2 oz I&O: 11/29/18 11/30/18 12/01/18 06:59 06:59 06:59 Intake Total 120 Output Total 385 Balance -265 Result Diagrams: 11/30/18 05:58 11/30/18 05:58 Additional Labs: Accuchecks 11/30/18 11/30/18 11/29/18 11:02 05:24 20:40 POC Glucose 98 115 H 114 H Laboratory Tests 09/29/18 11/23/18 11/29/18 13:40 12:30 12:55 Hgb Plt Count Neutrophils % Creatinine 2.60 H 2.52 H 2.96 H Hepatitis C Antibody 11/29/18 11/30/18 12:55 05:58 Hgb 8.8 L Plt Count 111 L Neutrophils % 82.6 H Creatinine Hepatitis C Antibody Non-Reactive Radiology Reviewed by me: Yes (PCXR - lines/tubes in place, R>L pleural effusion ) EKG Reviewed by me: Yes (Tele - SR) Phys Exam - Physical Examination Constitutional: NAD HEENT: PERRLA, sclera anicteric, oral pharynx no lesions Neck: no nodes, no JVD, supple, full ROM morbidly obese Gastrointestinal: soft, non-tender, no distention, positive bowel sounds Musculoskeletal: pulses present, edema present Neurological: normal sensation, moves all 4 limbs Skin: normal turgor, cap refill <2 seconds Dx/Plan (1) ESRD needing dialysis Code(s): N18.6 - END STAGE RENAL DISEASE; Z99.2 - DEPENDENCE ON RENAL DIALYSIS Status: Acute Comment: HD catheter placement today, initiate HD per Renal service, outpt AV fistula placement (2) Volume overload Code(s): E87.70 - FLUID OVERLOAD, UNSPECIFIED Status: Acute Comment: Secondary to ESRD (3) Anemia in CKD (chronic kidney disease) Code(s): N18.9 - CHRONIC KIDNEY DISEASE, UNSPECIFIED; D63.1 - ANEMIA IN CHRONIC KIDNEY DISEASE Status: Chronic Comment: Due to CKD, serial H/H monitoring (4) Diabetes mellitus type 2 in obese Code(s): E11.69 - TYPE 2 DIABETES MELLITUS WITH OTHER SPECIFIED COMPLICATION; E66.9 - OBESITY, UNSPECIFIED Status: Chronic Comment: Resume home insulin regiment with Lantus 20u BID, ISS, ADA (5) Chronic respiratory failure with hypoxia Code(s): J96.11 - CHRONIC RESPIRATORY FAILURE WITH HYPOXIA Status: Chronic Comment: Continue O2 supplementation at home levels via NC - Plan continue antibiotics, certified social workers in health care, out of bed/ambulate, DVT proph w/SCDs Stable currently -: Start HD per Renal recommendations -: Continue dual anti-platelet therapy with ASA/Plavix -: CM to assist with outpt HD coordination -: AM lab: BMP, CBC * .
[2018-11-30 16:37] LABS: Hep B Core Total Ab Non-Reactive (NonReactive)
[2018-11-30 16:39] LABS: Hep C IgG Ab Non-Reactive (NonReactive)
[2018-11-30 16:40] LABS: Hep C Index 0.03 S/CO (0-0.79)
[2018-11-30] MEDS: Clopidogrel Bisulfate 75 MG TAB PO SCH (17:23)
[2018-11-30 17:32] LABS: HBSAB Concentration 3.28 mIU/mL; Hep B Surf AB NonReactive (NonReactive)
[2018-11-30 17:35] LABS: Hep B Surf Ag Reflx Confirmation S/CO (NonReactive)
[2018-11-30 17:36] LABS: HBSAg Index 4.43 S/CO (0-0.99)
--- NOTE | 2018-11-30 20:09 | OP ---
DATE OF PROCEDURE: 11/30/2018 PREOPERATIVE DIAGNOSES: End-stage renal disease, morbid obesity, metabolic syndrome, and poor IV access. POSTOPERATIVE DIAGNOSES: End-stage renal disease, morbid obesity, metabolic syndrome, and poor IV access. PROCEDURES PERFORMED: Right internal jugular vein cuffed tunneled hemodialysis catheter, AngioDynamics pre-curved, left internal jugular central line, triple lumen, ultrasound, fluoroscopy used for placement of both. ANESTHESIA: Minimal sedation, local, 0.5% Marcaine with epinephrine 30 mL mixed with 2% Xylocaine 10 mL. Note, planning 12/09/2018, next Wednesday, left arm primary fistula. DESCRIPTION OF PROCEDURE: The patient was taken to the operating room, where under intravenous sedation, neck and chest were prepared with ChloraPrep and draped in routine fashion. Local anesthetic was infiltrated in the skin and subcutaneous tissue about the operative sites. Using ultrasound guidance, the right and left internal jugular veins were cannulated with trocar catheters, and J-wire was threaded. Trocar catheter was removed. Skin entry site was enlarged sharply. Stab incision was made over the right chest at the planned exit site for the hemodialysis catheter. The pre-curved AngioDynamics cuffed-tunneled hemodialysis catheter was tunneled between the two incisions using the tunneling device. The fabric cuff was placed beneath the skin exit site on the right side and the catheter was secured with 2 sutures of 3-0 nylon. Small and medium-sized dilators placed over the J-wire into the right internal jugular vein and removed. Dilator and Peel-Away sheath were placed over the J-wire into the superior vena cava, and dilator and Peel-Away sheath were removed. Dialysis catheter was placed through the Peel-Away sheath into the superior vena cava, and Peel-Away sheath was removed. Platysma was approximated with 4-0 Monocryl, skin with subdermal 4-0 Monocryl and [place] glue applied. Each port was aspirated of blood, flushed with heparinized saline solution 1000 units heparin per mL indicating volume of the port. Seldinger technique used to place left IJ central line, removed the J-wire, securing the catheter with 3-0 nylon suture and sterile dressings applied. Each port aspirated of blood, flushed with saline solution. Final fluoroscopic images revealed good line placement. Job ID: [id number]
[2018-11-30] MEDS: Atorvastatin Calcium 40 MG TAB PO SCH (20:48)
--- NOTE | 2018-11-30 23:12 | CON ---
DATE OF CONSULTATION: 11/30/2018 INDICATION FOR CONSULTATION: An 83-year-old female who was admitted with increasing shortness of breath and increasing lower extremity edema. She has acute on chronic renal insufficiency. She was seen in the office on November 16 complaining of edema and shortness of breath. We have increased her diuretics. She continued to have more edema. She was to see her traffic engineering technician and when she went to see the traffic engineering technician, it was told that she needed to be admitted to the hospital. Since that time, she has been admitted and has had a catheter placed for probable dialysis and she has also had ultrasounds to evaluate for possible areas to place an AV fistula. Her shortness of breath has become worse that it was not improved by the diuretics. Her creatinine has increased, her BUN is 80 and creatinine is 3.02. Her last echocardiogram showed ejection fraction was about 50% to 55%. She also had what appeared to be diastolic dysfunction with mild mitral and tricuspid valve regurgitation with bilateral atrial dilatation. She has had a cardiac catheterization in 2013 which showed 30% to 50% stenosis in the right coronary artery proximally, 30% mid LAD, and 30% proximal first obtuse marginal branch and the ramus also had 50% stenosis. She does have a history of sleep apnea also. She denied any chest pain, but mainly complains of shortness of breath and lower extremity edema. PAST MEDICAL HISTORY: Significant for 2 discectomies of the C-spine and lumpectomy. She has had bilateral knee replacements, carpal tunnel release, cholecystectomy , colonoscopy in 2012, hysterectomy, left carotid endarterectomy in 2007, left heart catheterization in 2013 as noted above. She has had a tonsillectomy. She has a history of coronary artery disease, diabetes, hypertension, as well as chronic kidney disease and sleep apnea. She has had a history of TIAs. SOCIAL HISTORY: She denies any alcohol or tobacco abuse. She drinks 1 or 2 cups of coffee a day. ALLERGIES: NONE. FAMILY HISTORY: Mother of breast cancer, also had a history of hypertension. Father had some type of cancer. She has 1 son who has diabetes, peripheral artery disease, has undergone stent placement, has history of hypertension and tachycardia. REVIEW OF SYSTEMS: She mainly complains of shortness of breath and lower extremity edema. She denied any chest pain. She denied any new HEENT complaints or visual changes. Abdominal, she had no discomfort. She had no urinary complaints such as dysuria or hematuria. Musculoskeletal, she mainly complained of the swelling, the edema, some difficulty to ambulate. She denied any weight gain or fevers. She does not have any dizziness or syncope. MEDICATIONS: Prior to admission, included: 1. Atorvastatin 40 mg a day. 2. Breo Ellipta. 3. Calcium plus vitamin D. 4. Plavix 75 mg a day. 5. Hydralazine 50 mg b.i.d. 6. Ipratropium/albuterol inhaler. 7. Linagliptin 5 mg once every other day. 8. Multivitamins. 9. Liothyronine. 10. Aspirin 81 mg a day. 11. Coreg 6.25 mg b.i.d. 12. Furosemide 40 mg two in the morning, one in the evening. 13. Levemir 100 units/mL as directed. 14. She was on ProAir, calcium, allopurinol, isosorbide mononitrate 10 mg b.i.d. , cholecalciferol 1000 unit capsules once a day, cyanocobalamin 500 mg once a day, vitamin B12, vitamin D3, amlodipine 5 mg once a day. 15. She also was started on metolazone 5 mg once a day 1 hour before her meals. It was directed that should she not have any improvement, she should return to the office. She was also directed to see Dr. Fox, her traffic engineering technician. She was also advised to wear compression stockings or Oren wraps and to raise the lower extremity due to the edema. PHYSICAL EXAMINATION: GENERAL: Reveals an elderly female, who is in no acute distress at this time. VITAL SIGNS: Her blood pressure is 139/61, heart rate is 85 and regular, respiratory rate 14. She is afebrile. HEENT: Reveals the head to be normocephalic and atraumatic. NECK: She does have bilateral carotid bruits and a well-healed surgical incision of the left carotid area. CHEST: She has decreased breath sounds in the bases, but I did not hear any rales, rhonchi, or wheezing. CARDIOVASCULAR: Reveals a regular rate and rhythm. She has a very soft systolic murmur at the apex. ABDOMEN: Morbid obesity. Positive bowel sounds are present and I do not palpate any particular masses or tenderness. EXTREMITIES: Show 2+ lower extremity edema. Pedal pulses are present. NEUROLOGICAL: She appears to be intact. LABORATORY DATA: BUN of 80 with a creatinine of 3.02, potassium was 4.7, sodium 135, blood sugar was 115. Hemoglobin on arrival was 8.8, is now decreased down to 8.4. WBC of 5.8. Her BNP was 620. Cardiac enzymes are negative. IMPRESSION: 1. Congestive heart failure exacerbation due to combination of diastolic dysfunction and chronic renal insufficiency. At this time, most likely she will need to undergo dialysis in order to maintain the fluid since she has had no improvement with the diuretics. I suspect her diastolic dysfunction is a significant problem. 2. History of hypertension. This is under reasonable control. At this time, we will continue her medications and we can hope this can be helped with the assistance of Dr. Fox. 3. History of diabetes. She will continue her present medications. Her blood sugars are under good control at this time. 4. Chronic anemia and most likely this is also due to her history of chronic kidney disease. 5. History of coronary artery disease. This appears to be stable at this time. She has not had any chest discomfort, eventually she may need to undergo cardiac catheterization to re-evaluate her coronary arteries. Her last catheterization was 5 years ago. At this time, we will be more than happy to continue to follow the patient with you. Job ID: [id number] [place]
[2018-12-01] MEDS: Furosemide 40 MG/4 ML VIAL SLOW IVP SCH ×2 (05:04→14:51)
[2018-12-01 05:11] LABS: #Eosinphils 0.3 thou/uL (0.0-0.7); #Lymphocytes 0.7 thou/uL (1.20-3.40); #Monocytes 0.5 thou/uL (0.11-0.59); #Neutrophils 4.9 thou/uL (1.40-6.50); %Basophils 0.1 % (0.0-1.0); %Eosinophils 4.8 % (0.0-10.0); %Lymphocytes 10.3 % (21.0-51.0); %Monocytes 8.1 % (0.0-10.0); %Neutrophils 76.6 % (42.0-75.0); Mean Corpuscular HGB CONC 30.6 g/dL (32.0-36.0); Mean Corpuscular Hemoglobin 30.6 pg (27.0-31.0); Mean Corpuscular Volume 99.9 fL (78.0-98.0); Mean Platelet Volume 10.4 fL (7.4-10.4); Platelet Count 97 thou/uL (130-400); RBC Distribution Width 16.9 % (11.5-14.5); Red Blood Cell (RBC) Count 2.63 mill/uL (4.20-5.40); White Blood Cell (WBC) Count 6.4 thou/uL (4.8-10.8)
[2018-12-01 05:20] LABS: Anion Gap 12 mmol/L (10-20); BUN (Urea Nitrogen) 84 mg/dL (9.8-20.1); Calc. Creatinine Clearance 28 mL/min (70-130); Calcium 9.7 mg/dL (7.8-10.44); Carbon Dioxide 30 mmol/L (23-31); Chloride 99 mmol/L (98-107); Estimated GFR-MDRD 14; Glucose 85 mg/dL (83-110); Potassium 4.8 mmol/L (3.5-5.1); Sodium 136 mmol/L (136-145)
[2018-12-01 05:40] LABS: HIV (1/2) Antibody/Antigen Non-Reactive (NonReactive); HIV 1/2 INDEX 0.08 S/CO (<1.00)
[2018-12-01] MEDS: ALPRAZolam 0.5 MG TAB PO SCH ×3 (06:01→17:31)
[2018-12-01] MEDS: Mometasone/Formoterol 120 PUFF INHALER INH SCH ×2 (06:58→18:14)
[2018-12-01] MEDS: Carvedilol 25 MG TAB PO SCH ×3 (09:09→19:59)
[2018-12-01] MEDS: Enoxaparin Sodium 30 MG/0.3 ML SYRINGE SC SCH (09:10)
[2018-12-01] MEDS: hydrALAZINE 25 MG TAB PO SCH ×3 (09:11→20:00)
[2018-12-01] MEDS: Insulin Glargine 20 UNITS in Pre-Filled Syringe 1 EACH SC SCH ×3 (09:12→20:11)
[2018-12-01] MEDS: Isosorbide Mononitrate 20 MG TAB PO SCH ×3 (09:12→20:01)
--- NOTE | 2018-12-01 09:58 | PRG ---
DATE OF SERVICE: 12/01/2018 Omer Higgins is doing well today. She is slightly hypoxic. She is scheduled to go early to dialysis for first dialysis. I have spoken to Dr. Sarmad Fox and the patient is so fluid overloaded more than 80 pounds that it will take 5 to 7 days to get this fluid off with dialysis. I have scheduled 12/09/2018, left arm fistula. Avoid IV access, blood draws from the left arm. Use central line for all IV access and blood draws. Leave her central line in until discharge. I have spoken with the family and the patient may require temporary assisted living. She stayed in the [facility] in the past prior to going home after stroke in May. She may need the same period of convalescence prior to going home as she has difficulty transferring and difficulty with mobility. Her son is available to help her when she does go home. At this point, I will be out of town for the next week, but she is scheduled for 12/09/2018, left arm fistula. Dr. Franco is covering. Please call if necessary. Job ID: [id number]
[2018-12-01] MEDS: Metolazone 5 MG TAB PO SCH (10:03)
[2018-12-01] MEDS: Aspirin 81 mg Enteric Coated Tablet PO SCH (10:03)
[2018-12-01] MEDS: Liothyronine Sodium 5 MCG TAB PO SCH (10:04)
[2018-12-01] MEDS: Allopurinol 300 MG TAB PO SCH (10:10)
--- NOTE | 2018-12-01 12:29 | PDOC.CTH ---
Cardiology Progress Note - Subjective The pt seen and examined. No overnight events. No cardiac complaints. However , she is very lethargic. - Objective Vital Signs Temp Pulse Pulse Pulse Resp BP BP 12/01/18 11:44 97.2 F L 55 L 20 12/01/18 10:32 59 L 60 161/69 H 12/01/18 10:10 59 L 121/56 L 12/01/18 07:50 97.4 F L 55 L 20 12/01/18 06:58 64 16 12/01/18 04:00 97.6 F 63 15 BP BP Pulse Ox Pulse Ox Pulse Ox 12/01/18 11:44 109/55 L 93 L 12/01/18 10:32 146/67 H 85 L 91 L 12/01/18 10:10 12/01/18 07:50 141/63 H 95 12/01/18 06:58 96 12/01/18 04:00 116/57 L 91 L Admit Weight 298 lb 2 oz Weight 292 lb 9.6 oz 11/30/18 12/01/18 12/02/18 06:59 06:59 06:59 Intake Total 120 120 Output Total 385 250 Balance -265 -130 - Physical Examination General/Neuro: other: (lethargic) Neck: carotid US brisk Lungs: other: (diminished at bases) Heart: RRR Abdomen: soft Extremities: other: (3+ pitting BLE edema) - Telemetry Telemetry Rhythm: SR - Labs Result Diagrams: 12/01/18 04:45 12/01/18 04:45 Troponin/CKMB Troponin I 0.010 ng/mL (< 0.028) 11/29/18 18:57 - Assessment/Plan 1. 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 ESRD with HD - HD today; managed by Dr Fox 3. CAD without intervention - On BBlocker, ASA, and Statin 4. HTN - stable; 5. DM type 2 - managed by PCP 6. Anemia 2/2 CKD - Hgb 8.0 today 7. Sleep Apnea - may need Cpap at Bedside 8. Hx of multiple TIAs - On Plavix MAR reviewed Pt. seen and eval. by me. I agree with the A/P by the ASSISTANT PROJECT MANAGER. She had dialysis this AM and tolerated it well. Chest clear anteriorly. RRR. 2+ lower extremity edema. Review of Systems - Review of Systems Constitutional: reports: no symptoms reported EENTM: reports: no symptoms reported Respiratory: reports: no symptoms reported Cardiac (ROS): reports: no symptoms reported
[2018-12-01] MEDS ORDERED: Heparin 10,000 UNITS/ 10 ML VIAL ONE (15:00)
[2018-12-01] MEDS ORDERED: Polyethylene Glycol OPTH DROP 15 ML BOT EA EYE PRN (15:53)
--- NOTE | 2018-12-01 16:16 | PDOC.PN ---
- Subjective Encounter Start Date: 12/01/18 Encounter Start Time: 16:10 Subjective: f/u for ESRD with HD initiated and tolerating. c/o weakness but -: feels better overall. No BM in 3 days. - Objective Resuscitation Status - Order Detail: 11/29/18 18:08 Resuscitation Status Routine Co-Sign Provider: Resuscitation Status: FULL: Full Resuscitation MAR Reviewed: Yes Vital Signs & Weight: Vital Signs (12 hours) Temp Pulse Pulse Pulse Resp BP BP 12/01/18 15:11 97.2 F L 76 18 12/01/18 13:36 53 L 119/59 L 12/01/18 11:44 97.2 F L 55 L 20 12/01/18 10:32 59 L 60 161/69 H 12/01/18 10:10 59 L 121/56 L 12/01/18 07:50 97.4 F L 55 L 20 12/01/18 06:58 64 16 BP BP Pulse Ox Pulse Ox Pulse Ox Pulse Ox 12/01/18 15:11 129/62 96 12/01/18 13:36 98 12/01/18 11:44 109/55 L 93 L 12/01/18 10:32 146/67 H 85 L 91 L 12/01/18 10:10 12/01/18 07:50 141/63 H 95 12/01/18 06:58 96 Weight Admit Weight 298 lb 2 oz Weight 292 lb 9.6 oz I&O: 11/30/18 12/01/18 12/02/18 06:59 06:59 06:59 Intake Total 120 120 Output Total 385 250 Balance -265 -130 Result Diagrams: 12/01/18 04:45 12/01/18 04:45 Additional Labs: Accuchecks 12/01/18 12/01/18 12/01/18 10:49 05:45 04:26 POC Glucose 144 H 108 93 11/30/18 11/30/18 21:05 16:34 POC Glucose 124 H 80 Laboratory Tests 09/29/18 11/23/18 11/29/18 13:40 12:30 12:55 Hgb Plt Count Neutrophils % Creatinine 2.60 H 2.52 H 2.96 H Hepatitis C Antibody 11/29/18 11/30/18 11/30/18 12:55 05:58 05:58 Hgb 8.8 L 8.4 L Plt Count 111 L 97 L Neutrophils % 82.6 H Creatinine Hepatitis C Antibody Non-Reactive EKG Reviewed by me: Yes (Tele - SR) Phys Exam - Physical Examination Constitutional: NAD HEENT: PERRLA, sclera anicteric, oral pharynx no lesions Neck: no nodes, no JVD, supple, full ROM diminished in bases bilat Respiratory: no wheezing, no rales, no rhonchi S1, S2 Cardiovascular: RRR, no significant murmur, no rub, gallop obese Gastrointestinal: soft, non-tender, no distention, positive bowel sounds Musculoskeletal: pulses present, edema present Neurological: normal sensation, moves all 4 limbs Psychiatric: A&O x 3 Skin: normal turgor, cap refill <2 seconds Dx/Plan (1) ESRD needing dialysis Code(s): N18.6 - END STAGE RENAL DISEASE; Z99.2 - DEPENDENCE ON RENAL DIALYSIS Status: Acute Comment: HD catheter placement today, initiate HD per Renal service, outpt AV fistula placement (2) Volume overload Code(s): E87.70 - FLUID OVERLOAD, UNSPECIFIED Status: Acute Comment: Secondary to ESRD, improving (3) Anemia in CKD (chronic kidney disease) Code(s): N18.9 - CHRONIC KIDNEY DISEASE, UNSPECIFIED; D63.1 - ANEMIA IN CHRONIC KIDNEY DISEASE Status: Chronic Comment: Due to CKD, serial H/H monitoring (4) Diabetes mellitus type 2 in obese Code(s): E11.69 - TYPE 2 DIABETES MELLITUS WITH OTHER SPECIFIED COMPLICATION; E66.9 - OBESITY, UNSPECIFIED Status: Chronic Comment: Resume home insulin regiment with Lantus 20u BID, ISS, ADA (5) Chronic respiratory failure with hypoxia Code(s): J96.11 - CHRONIC RESPIRATORY FAILURE WITH HYPOXIA Status: Chronic Comment: Continue O2 supplementation at home levels via NC (6) Constipation Code(s): K59.00 - CONSTIPATION, UNSPECIFIED Status: Acute Qualifiers: Constipation type: slow transit constipation Qualified Code(s): K59.01 - Slow transit constipation Comment: Start Senokot-S BID - Plan plan discussed w/ family, PT/OT, psych social worker, out of bed/ambulate Stable currently -: HD per Renal service -: Systane ophthalmic drops -: Senokot-S BID -: CM for SNF options * .
[2018-12-01] MEDS: Clopidogrel Bisulfate 75 MG TAB PO SCH (17:45)
[2018-12-01] MEDS: Atorvastatin Calcium 40 MG TAB PO SCH (19:58)
[2018-12-01] MEDS: Senokot S 8.6-50 MG TAB PO SCH (19:58)
[2018-12-02] MEDS: ALPRAZolam 0.5 MG TAB PO SCH ×4 (01:56→19:45)
[2018-12-02] MEDS: Acetaminophen 325 MG TAB PO PRN ×2 (05:58→23:21)
[2018-12-02] MEDS: Mometasone/Formoterol 120 PUFF INHALER INH SCH ×2 (07:51→19:42)
--- NOTE | 2018-12-02 09:07 | PDOC.PN ---
- Subjective Encounter Start Date: 12/02/18 Encounter Start Time: 08:45 Subjective: f/u for ESRD currently receiving HD. No BM overnight. Feels fatigued -: but denies CP, SOB. - Objective Resuscitation Status - Order Detail: 11/29/18 18:08 Resuscitation Status Routine Co-Sign Provider: Resuscitation Status: FULL: Full Resuscitation MAR Reviewed: Yes Vital Signs & Weight: Vital Signs (12 hours) Temp Pulse Resp BP Pulse Ox 12/02/18 07:51 62 12 12/02/18 07:25 97.2 F L 51 L 18 130/59 L 94 L 12/02/18 03:40 96.3 F L 65 20 129/58 L 92 L Weight Admit Weight 298 lb 2 oz Weight 297 lb I&O: 12/01/18 12/02/18 12/03/18 06:59 06:59 06:59 Intake Total 120 360 Output Total 385 400 Balance -265 -40 Result Diagrams: 12/01/18 04:45 12/01/18 04:45 Additional Labs: Accuchecks 12/02/18 12/01/18 12/01/18 05:13 20:11 16:47 POC Glucose 106 176 H 154 H 12/01/18 10:49 POC Glucose 144 H Laboratory Tests 09/29/18 11/23/18 11/29/18 13:40 12:30 12:55 Hgb Plt Count Neutrophils % Creatinine 2.60 H 2.52 H 2.96 H Hepatitis C Antibody 11/29/18 11/30/18 11/30/18 12:55 05:58 05:58 Hgb 8.8 L 8.4 L Plt Count 111 L 97 L Neutrophils % 82.6 H Creatinine Hepatitis C Antibody Non-Reactive EKG Reviewed by me: Yes (Tele - SR) Phys Exam - Physical Examination Constitutional: NAD HEENT: PERRLA, sclera anicteric, oral pharynx no lesions Neck: no nodes, no JVD, supple, full ROM diminished in bases Respiratory: no wheezing, no rales, no rhonchi S1, S2 Cardiovascular: RRR, no significant murmur, no rub, gallop Gastrointestinal: soft, non-tender, no distention, positive bowel sounds Musculoskeletal: pulses present, edema present Neurological: normal sensation, moves all 4 limbs Skin: normal turgor, cap refill <2 seconds Deviation from normal: Cardozo catheter with gross hematuria Dx/Plan (1) ESRD needing dialysis Code(s): N18.6 - END STAGE RENAL DISEASE; Z99.2 - DEPENDENCE ON RENAL DIALYSIS Status: Acute Comment: HD catheter placement today, initiate HD per Renal service, outpt AV fistula placement (2) Volume overload Code(s): E87.70 - FLUID OVERLOAD, UNSPECIFIED Status: Acute Comment: Secondary to ESRD, improving (3) Anemia in CKD (chronic kidney disease) Code(s): N18.9 - CHRONIC KIDNEY DISEASE, UNSPECIFIED; D63.1 - ANEMIA IN CHRONIC KIDNEY DISEASE Status: Chronic Comment: Due to CKD, serial H/H monitoring (4) Diabetes mellitus type 2 in obese Code(s): E11.69 - TYPE 2 DIABETES MELLITUS WITH OTHER SPECIFIED COMPLICATION; E66.9 - OBESITY, UNSPECIFIED Status: Chronic Comment: Resume home insulin regiment with Lantus 20u BID, ISS, ADA (5) Chronic respiratory failure with hypoxia Code(s): J96.11 - CHRONIC RESPIRATORY FAILURE WITH HYPOXIA Status: Chronic Comment: Continue O2 supplementation at home levels via NC (6) Constipation Code(s): K59.00 - CONSTIPATION, UNSPECIFIED Status: Acute Qualifiers: Constipation type: slow transit constipation Qualified Code(s): K59.01 - Slow transit constipation Comment: Start Senokot-S BID, add Mag Citrate (7) Gross hematuria Status: Acute Comment: Likely due to Cardozo catheter placement in conjunction with dual anti-platelet therapy, continue to monitor for improvement, hold ASA/ Plavix, consider Urology evaluation if no improvement in 24h - Plan PT/OT, social work coordinator, out of bed/ambulate, DVT proph w/SCDs Stable currently -: HD per Renal service -: Hold ASA/Plavix -: Add Magnesium Citrate today -: OOB/PT for mobilization * CM for outpt coordination for HD * AM lab: BMP, CBC
--- NOTE | 2018-12-02 09:51 | PDOC.CTH ---
Cardiology Progress Note - Subjective The pt seen and examined. No overnight events. No cardiac complaints. she is more alerted today. - Objective Vital Signs Temp Pulse Resp BP Pulse Ox 12/02/18 07:51 62 12 12/02/18 07:25 97.2 F L 51 L 18 130/59 L 94 L 12/02/18 03:40 96.3 F L 65 20 129/58 L 92 L Admit Weight 298 lb 2 oz Weight 297 lb 12/01/18 12/02/18 12/03/18 06:59 06:59 06:59 Intake Total 120 360 Output Total 385 400 Balance -265 -40 - Physical Examination General/Neuro: alert & oriented x3 Neck: no JVD present Lungs: other: (diminished at bases) Heart: RRR Abdomen: soft Extremities: other: (2+ pitting BLE edema) - Telemetry Telemetry Rhythm: SR - Labs Result Diagrams: 12/01/18 04:45 12/01/18 04:45 Troponin/CKMB Troponin I 0.010 ng/mL (< 0.028) 11/29/18 18:57 - Assessment/Plan 1. 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 ESRD with HD - HD today; managed by Dr Fox 3. CAD without intervention - On BBlocker, ASA, and Statin 4. HTN - stable; 5. DM type 2 - managed by PCP 6. Anemia 2/2 CKD - Hgb 8.1 today 7. Sleep Apnea - may need Cpap at Bedside 8. Hx of multiple TIAs - On Plavix MAR reviewed Pt. seen and eval;. by me. I agree with the A/P by the BUSINESS BANKING MANAGER.She is doing well with dialysis. She is maintaining NSR. Chest clear. RRR. 2+ edema. Review of Systems - Review of Systems Constitutional: reports: weakness EENTM: reports: no symptoms reported Respiratory: reports: no symptoms reported Cardiac (ROS): reports: no symptoms reported
[2018-12-02] MEDS ORDERED: Heparin 10,000 UNITS/ 10 ML VIAL ONE ×2 (10:00→14:49)
[2018-12-02 10:16] LABS: Hep B Surface AG-Rflx Sendout Negative (Negative)
[2018-12-02] MEDS ORDERED: Magnesium Citrate 300 ML BOT PO SCH (12:00)
[2018-12-02] MEDS: Liothyronine Sodium 5 MCG TAB PO SCH (12:34)
[2018-12-02] MEDS: Allopurinol 300 MG TAB PO SCH (12:34)
[2018-12-02] MEDS: Enoxaparin Sodium 30 MG/0.3 ML SYRINGE SC SCH (12:34)
[2018-12-02] MEDS: Senokot S 8.6-50 MG TAB PO SCH ×2 (12:35→19:43)
[2018-12-02] MEDS: Isosorbide Mononitrate 20 MG TAB PO SCH ×2 (12:35→19:42)
[2018-12-02] MEDS: Carvedilol 25 MG TAB PO SCH (12:35)
[2018-12-02] MEDS: hydrALAZINE 25 MG TAB PO SCH ×2 (12:35→23:21)
[2018-12-02] MEDS: Aspirin 81 mg Enteric Coated Tablet PO SCH (12:36)
[2018-12-02] MEDS: Insulin Glargine 20 UNITS in Pre-Filled Syringe 1 EACH SC SCH ×2 (12:36→21:33)
[2018-12-02] MEDS: HumaLOG 300 UNITS/3 ML VIAL SC PRN (17:56)
[2018-12-02] MEDS: Atorvastatin Calcium 40 MG TAB PO SCH (19:43)
[2018-12-02] MEDS: Carvedilol 6.25 MG TAB PO SCH (23:22)
[2018-12-03] MEDS ORDERED: Morphine 4 MG/ML VIAL SLOW IVP SCH ×2 (03:30→04:45)
[2018-12-03] MEDS: ALPRAZolam 0.5 MG TAB PO SCH ×4 (03:33→16:54)
[2018-12-03 05:14] LABS: Band 6 % (5-11); Elliptocytes SLIGHT = 2-5 cells (100X) (0-1/hpf); Eosinophils 4 % (0-10); Hemoglobin 8.3 g/dL (12.0-16.0); Hypochromia MODERATE=16-30 cells (100X) (0-5/hpf); Lymphocytes 6 % (21-51); MDiff Complete? YES; Mean Corpuscular HGB CONC 31.8 g/dL (32.0-36.0); Mean Corpuscular Hemoglobin 31.8 pg (27.0-31.0); Mean Corpuscular Volume 99.8 fL (78.0-98.0); Mean Platelet Volume 10.7 fL (7.4-10.4); Monocytes 5 % (0-10); Neutrophil 79 % (42-75); Platelet Count 99 thou/uL (130-400); Platelet Morphology Comment Appears Decreased; RBC Distribution Width 16.7 % (11.5-14.5); Red Blood Cell (RBC) Count 2.61 mill/uL (4.20-5.40); Target Cells SLIGHT = 2-5 cells (100X) (0-1/hpf); White Blood Cell (WBC) Count 9.4 thou/uL (4.8-10.8)
[2018-12-03 05:24] LABS: Anion Gap 14 mmol/L (10-20); BUN (Urea Nitrogen) 58 mg/dL (9.8-20.1); Calc. Creatinine Clearance 35 mL/min (70-130); Carbon Dioxide 26 mmol/L (23-31); Chloride 101 mmol/L (98-107); Estimated GFR-MDRD 18; Potassium 5.3 mmol/L (3.5-5.1); Sodium 136 mmol/L (136-145)
[2018-12-03 05:28] LABS: Glucose 47 mg/dL (83-110)
[2018-12-03] MEDS: READ PPD TEST SITE PO SCH ×2 (05:47→11:36)
[2018-12-03] MEDS ORDERED: Naloxone HCl 0.4 mg/ml Vial ONE (07:53)
[2018-12-03 08:00] LABS: Actual Bicarbonate (HCO3a) 27.5 mEq/L (22-28); Base Excess (BEa) -2.3 mEq/L (-2.0 to +3.0); Calcium, Ionized 1.22 mmol/L (1.12-1.30); Carboxyhemoglobin (COHb) 1.9 gm% (0.0-3.0); Hemoglobin (Hb) 9.1 g/dL (12.0-16.0); Potassium - ABG Lab 5.28 mmol/L (3.70-5.30)
[2018-12-03 08:02] LABS: CO2 Tension 81.4 mmHg (35.0-45.0); pH, Arterial 7.15 (7.35-7.45)
[2018-12-03 08:03] LABS: O2 Tension (PaO2) 56.8 mmHg (> 60.0); Puncture Site RRA
[2018-12-03 08:13] LABS: Hemoglobin 8.1 g/dL (12.0-16.0); Mean Corpuscular HGB CONC 31.5 g/dL (32.0-36.0); Mean Corpuscular Hemoglobin 31.6 pg (27.0-31.0); Mean Platelet Volume 10.7 fL (7.4-10.4); Platelet Count 91 thou/uL (130-400); RBC Distribution Width 16.8 % (11.5-14.5); Red Blood Cell (RBC) Count 2.56 mill/uL (4.20-5.40); White Blood Cell (WBC) Count 15.6 thou/uL (4.8-10.8)
[2018-12-03] MEDS: Mometasone/Formoterol 120 PUFF INHALER INH SCH ×2 (08:18→18:23)
--- NOTE | 2018-12-03 08:18 | RAD ---
EXAM: Single view of the chest HISTORY: Shortness of breath COMPARISON: 11/30/2018 FINDINGS: Single view of the chest shows an enlarged but stable cardiomediastinal silhouette. There appear to be bilateral layering pleural effusions. The dialysis catheter and central venous catheter are unchanged in position. IMPRESSION: Stable exam
[2018-12-03 08:33] LABS: Anion Gap 9 mmol/L (10-20); BUN (Urea Nitrogen) 59 mg/dL (9.8-20.1); Calc. Creatinine Clearance 33 mL/min (70-130); Calcium 8.6 mg/dL (7.8-10.44); Carbon Dioxide 30 mmol/L (23-31); Chloride 98 mmol/L (98-107); Estimated GFR-MDRD 17; Glucose 240 mg/dL (83-110); Potassium 5.4 mmol/L (3.5-5.1); Sodium 132 mmol/L (136-145)
--- NOTE | 2018-12-03 08:33 | PDOC.CTH ---
Cardiology Progress Note - Subjective Pt with increase respiratory support this am and bradycardia. Pt now with bipap. HR in the 60's. Called to bedside per Dr. Donis given HR dipping in the 30-40 range. - Objective Vital Signs Temp Pulse Resp BP BP Pulse Ox 12/03/18 04:09 96 F L 57 L 18 117/57 L 9 L 12/02/18 23:22 121/58 L 12/02/18 23:21 57 L 121/58 L Admit Weight 298 lb 2 oz Weight 294 lb 15.656 oz 12/02/18 12/03/18 12/04/18 06:59 06:59 06:59 Intake Total 360 Output Total 400 40 Balance -40 -40 - Labs Result Diagrams: 12/03/18 07:57 12/03/18 07:57 Troponin/CKMB Troponin I 0.010 ng/mL (< 0.028) 11/29/18 18:57 - Assessment/Plan Acute on chronic systolic HF ESRD CAD HTN DM Anemia MONCHO TIA Pt given atropine at bedside. appropriate response Add dobutamine, dopamine for HR and BP support Plan is to dialyse today
--- NOTE | 2018-12-03 08:57 | RAD ---
EXAM: Single view of the chest HISTORY: Respiratory distress COMPARISON: 11/30/2018 FINDINGS: Single view of the chest shows an enlarged but stable cardiomediastinal silhouette. Athero sclerotic calcifications are seen in the aorta. The lines and tubes are unchanged in position. Stable veil-like opacities in the lower thoraces likely represent pleural effusions with adjacent ate lectasis. Degenerative changes are seen in the spine. IMPRESSION: Stable exam
[2018-12-03 09:07] LABS: Actual Bicarbonate (HCO3a) 31.6 mEq/L (22-28); Base Excess (BEa) 3.3 mEq/L (-2.0 to +3.0); Calcium, Ionized 1.07 mmol/L (1.12-1.30); Carboxyhemoglobin (COHb) 1.3 gm% (0.0-3.0); Hemoglobin (Hb) 8.7 g/dL (12.0-16.0); Potassium - ABG Lab 5.57 mmol/L (3.70-5.30)
[2018-12-03 09:14] LABS: pH, Arterial 7.25 (7.35-7.45)
[2018-12-03 09:15] LABS: CO2 Tension 73.1 mmHg (35.0-45.0); O2 Tension (PaO2) 94.9 mmHg (> 60.0); Puncture Site RR
[2018-12-03 09:16] LABS: ALV-art Gradient 170.225 (0-20)
[2018-12-03] MEDS ORDERED: DOPamine 400 MG/D5W 250 ML 250 ML ONE (09:20)
--- NOTE | 2018-12-03 09:38 | CON ---
DATE OF CONSULTATION: 12/03/2018 HISTORY OF PRESENT ILLNESS: The patient cannot give me a history, therefore what I have obtained from reading the chart. She is an 83-year-old female, who was transferred from telemetry earlier this morning after going through a Code Green on the floor. It sounds like she became bradycardic, hypoxic and had hypercapnic respiratory failure. She is now on noninvasive ventilation. She was originally admitted to the hospital to the Hospitalist Service on 11/29/2018. At that time, she was complaining of cough and shortness of breath. She was found to be significantly fluid overloaded. I believe she has had a dialysis catheter inserted and then she has had a couple of sessions of dialysis since that time. I am not quite clear on how much fluid has been removed at those sessions. PAST MEDICAL HISTORY: 1. Hypertension. 2. Hyperlipidemia. 3. Diastolic cardiac dysfunction. 4. Chronic kidney disease, now stage 5. 5. Diabetes mellitus, type 2. 6. Anemia. 7. Peripheral vascular disease with bilateral carotid stenosis. 8. Morbid obesity. PAST SURGICAL HISTORY: 1. Cholecystectomy. 2. Hysterectomy. 3. Lumbar laminectomy. 4. Tonsillectomy. 5. Wrist surgery. 6. Bilateral knee replaced. 7. Lumpectomy of left breast. SOCIAL HISTORY: Nonsmoker. Does not consume alcohol. Does not use illicit drugs. Apparently lives at home with her son. ALLERGIES: ADHESIVE TAPE. MEDICATIONS: Prior to admission; 1. Aspirin 81 mg daily. 2. Carvedilol 25 mg b.i.d. 3. Levothyroxine 100 mcg daily. 4. Levemir insulin 20 units subcu twice daily. 5. Tradjenta 5 mg daily. 6. Furosemide 40 mg daily. 7. Symbicort 80/4.5 two puffs twice daily. 8. ProAir metered-dose inhaler as needed. 9. Breo Ellipta 100/25 one puff daily. 10. Allopurinol 300 mg daily. 11. Amlodipine 5 mg daily. 12. Alprazolam 0.5 mg p.r.n. anxiety. 13. Atorvastatin 40 mg daily. 14. Plavix 75 mg daily. 15. Hydralazine 50 mg twice daily. 16. Isosorbide mononitrate 10 mg twice daily. 17. Metolazone 5 mg daily Wednesday through [place]. Current inpatient medications: 1. Levemir insulin 20 units subcu b.i.d. 2. Coreg 12.5 mg b.i.d. 3. Cytomel 5 mg daily. 4. Allopurinol 300 mg daily. 5. Metolazone 5 mg daily. 6. Isosorbide 10 mg b.i.d. 7. Xanax 0.5 mg q.6 hours. 8. Plavix 75 mg daily. 9. Lovenox 30 mg daily. REVIEW OF SYSTEMS: Cannot be obtained as the patient is currently poorly responsive. PHYSICAL EXAMINATION: VITAL SIGNS: Heart rate is between 45 and 53. She is alternating between junctional rhythm and sinus bradycardia. Blood pressure 111/46, O2 saturation 98%, and respiratory rate 15. GENERAL: She will move all 4 extremities when stimulated, will not answer questions. HEENT: Remarkable for a BiPAP mask on. NECK: Without adenopathy, JVD, or bruits. LUNGS: Coarse breath sounds bilaterally. CARDIOVASCULAR: S1 and S2, regular without audible murmur. ABDOMEN: Obese, soft, nontender, and nondistended. EXTREMITIES: Edematous especially left arm. LABORATORY DATA: White blood cell count 15.6, hematocrit 25.7, and platelet count 91. PH 7.15, pCO2 of 81, pO2 of 56, that was on 50% Ventimask. Repeat ABG is pending. Sodium 132, potassium 5.4, chloride 98, CO2 of 30, BUN 59, creatinine 2.7, and glucose 240. ASSESSMENT: 1. Acute hypoxic and hypercapnic respiratory failure, requiring noninvasive mechanical ventilation. 2. Chronic renal failure with significant fluid overload. 3. Chronic diastolic heart failure. 4. Diabetes mellitus. 5. Massive obesity. PLAN: 1. Need to revise some of her medications. Due to her renal failure, enoxaparin will be changed to subcu heparin 5000 units twice daily. 2. Given the bradycardia, I would go ahead and hold the Coreg for the time being. 3. Recheck ABG. 4. Noninvasive ventilation as needed. The above encompassed 45 minutes of critical care time. Job ID: [id number]
[2018-12-03] MEDS ORDERED: Norepinephrine 4 MG/4 ML VIAL ONE (09:40)
[2018-12-03] MEDS ORDERED: Atropine Sulfate 1 mg/10 ml Syringe ONE (09:42)
[2018-12-03] MEDS ORDERED: Norepinephrine 8 MG in Dextrose 5% in Water 250 ML IVPB PRN (09:44)
[2018-12-03] MEDS ORDERED: Norepinephrine 8 MG/0.9% NS 250 ML IVPB SCH (09:45)
[2018-12-03] MEDS ORDERED: DOBUTamine 500 mg/250 ml 250 ML IVPB SCH ×2 (10:00)
[2018-12-03] MEDS ORDERED: Atropine Sulfate 1 mg/1 ml Vial IVP SCH (10:00)
[2018-12-03] MEDS: Allopurinol 300 MG TAB PO SCH (10:14)
[2018-12-03] MEDS: hydrALAZINE 25 MG TAB PO SCH ×2 (10:15→23:24)
[2018-12-03] MEDS: Isosorbide Mononitrate 20 MG TAB PO SCH ×2 (10:15→21:12)
[2018-12-03] MEDS: Senokot S 8.6-50 MG TAB PO SCH ×2 (10:15→21:19)
[2018-12-03] MEDS: Liothyronine Sodium 5 MCG TAB PO SCH (10:15)
[2018-12-03] MEDS: Insulin Glargine 20 UNITS in Pre-Filled Syringe 1 EACH SC SCH ×2 (11:23→21:12)
--- NOTE | 2018-12-03 11:33 | PDOC.PN ---
- Subjective Encounter Start Date: 12/03/18 Encounter Start Time: 11:30 Patient seen and examined, had a code green and brought down to ICU for now, ICU attending evaluated physician, on bipap for now. - Objective Resuscitation Status - Order Detail: 11/29/18 18:08 Resuscitation Status Routine Co-Sign Provider: Resuscitation Status: FULL: Full Resuscitation Vital Signs & Weight: Vital Signs (12 hours) Temp Pulse Pulse Pulse Pulse Resp Resp 12/03/18 11:14 80 12/03/18 10:19 96.0 F L 12/03/18 10:15 57 L 12/03/18 08:00 12/03/18 07:51 61 63 67 10 L 12/03/18 04:09 96 F L 57 L 18 Resp Resp BP BP BP BP Pulse Ox 12/03/18 11:14 12/03/18 10:19 12/03/18 10:15 12/03/18 08:00 97 12/03/18 07:51 12 12 109/56 L 114/56 L 115/51 L 12/03/18 04:09 117/57 L 9 L Pulse Ox Pulse Ox Pulse Ox 12/03/18 11:14 12/03/18 10:19 12/03/18 10:15 12/03/18 08:00 12/03/18 07:51 81 L 85 L 93 L 12/03/18 04:09 Weight Admit Weight 298 lb 2 oz Weight 294 lb 15.656 oz Most Recent Monitor Data Heart Rate from ECG 79 NIBP 123/68 NIBP BP-Mean 86 Respiration from ECG 14 SpO2 96 I&O: 12/02/18 12/03/18 12/04/18 06:59 06:59 06:59 Intake Total 360 Output Total 400 40 Balance -40 -40 Result Diagrams: 12/03/18 07:57 12/03/18 07:57 Additional Labs: Accuchecks 12/03/18 12/03/18 12/02/18 07:51 06:41 20:11 POC Glucose 61 L 70 174 H 12/02/18 16:58 POC Glucose 281 H Phys Exam - Physical Examination Constitutional: NAD drowsy obese HEENT: PERRLA, moist MMs, sclera anicteric Neck: no nodes, no JVD coarse distant breath sounds mild respiratory distress tachycardic distant heart sounds Gastrointestinal: soft, non-tender, no distention, positive bowel sounds Musculoskeletal: pulses present, edema present Dx/Plan (1) Respiratory acidosis Code(s): E87.2 - ACIDOSIS Status: Acute (2) ESRD needing dialysis Code(s): N18.6 - END STAGE RENAL DISEASE; Z99.2 - DEPENDENCE ON RENAL DIALYSIS Status: Acute Comment: HD catheter placement today, initiate HD per Renal service, outpt AV fistula placement (3) Volume overload Code(s): E87.70 - FLUID OVERLOAD, UNSPECIFIED Status: Acute Comment: Secondary to ESRD, improving (4) Acute respiratory failure with hypoxia Code(s): J96.01 - ACUTE RESPIRATORY FAILURE WITH HYPOXIA Status: Acute (5) Diabetes mellitus type 2 in obese Code(s): E11.69 - TYPE 2 DIABETES MELLITUS WITH OTHER SPECIFIED COMPLICATION; E66.9 - OBESITY, UNSPECIFIED Status: Chronic Comment: Resume home insulin regiment with Lantus 20u BID, ISS, ADA (6) Hypertension Code(s): I10 - ESSENTIAL (PRIMARY) HYPERTENSION Status: Chronic - Plan * possible intubation? ICU attending discussed case with the son, who stated that he would like the ICU attending to wait till he's at bedside before intubation, son did not make a decision on DNR or DNI for now * on dopamine for low BP * cont with bipap for now, defer intubation needs and discussion to ICU team and son * cont insulin for DM II * cardio also following as well, appreciate input * repeat ABG pending * xray in AM for now, labs in AM
[2018-12-03] MEDS: DOPamine 400 MG/D5W 250 ML 250 ML IVPB SCH ×2 (14:20→19:37)
--- NOTE | 2018-12-03 16:11 | EKG ---
Test Reason : SOB Blood Pressure : / mmHG Vent. Rate : 066 BPM Atrial Rate : 066 BPM P-R Int : 166 ms QRS Dur : 102 ms QT Int : 398 ms P-R-T Axes : 000 040 027 degrees QTc Int : 417 ms Sinus rhythm with Premature supraventricular complexes Low voltage QRS Borderline ECG Confirmed by ADEN GRIER M.D. ([id number]), map editor CAPO HANDY ([id number]) on 12/03/2018 4:10:43 PM Referred By: Confirmed By:ADEN GRIER M.D.
[2018-12-03] MEDS: Atorvastatin Calcium 40 MG TAB PO SCH (21:07)
[2018-12-03] MEDS: Heparin 5,000 UNITS/ML VIAL SC SCH (21:10)
[2018-12-04] MEDS: DOPamine 400 MG/D5W 250 ML 250 ML IVPB SCH ×2 (00:25→08:28)
[2018-12-04] MEDS: ALPRAZolam 0.5 MG TAB PO SCH ×2 (01:23→07:37)
[2018-12-04 05:51] LABS: Anion Gap 13 mmol/L (10-20); BUN (Urea Nitrogen) 65 mg/dL (9.8-20.1); Band 9 % (5-11); Calc. Creatinine Clearance 31 mL/min (70-130); Calcium 9.1 mg/dL (7.8-10.44); Carbon Dioxide 29 mmol/L (23-31); Chloride 97 mmol/L (98-107); Elliptocytes SLIGHT = 2-5 cells (100X) (0-1/hpf); Estimated GFR-MDRD 16; Glucose 100 mg/dL (83-110); Hemoglobin 7.7 g/dL (12.0-16.0); Hypochromia SLIGHT = 6-15 cells (100X) (0-5/hpf); Lymphocytes 12 % (21-51); MDiff Complete? YES; Macrocytosis SLIGHT = 6-15 cells (100X) (0-5/hpf); Mean Platelet Volume 10.4 fL (7.4-10.4); Monocytes 2 % (0-10); Neutrophil 77 % (42-75); Platelet Count 99 thou/uL (130-400); Platelet Morphology Comment Appears Decreased; Potassium 6.2 mmol/L (3.5-5.1); RBC Distribution Width 16.7 % (11.5-14.5); Red Blood Cell (RBC) Count 2.48 mill/uL (4.20-5.40); Sodium 133 mmol/L (136-145); White Blood Cell (WBC) Count 15.3 thou/uL (4.8-10.8)
[2018-12-04 06:08] LABS: Free T4 (Free Thyroxine) 0.76 ng/dL (0.70-1.48); Thyroid Stimulating Hormone 1.1397 uIU/mL (0.35-4.94)
[2018-12-04] MEDS: Mometasone/Formoterol 120 PUFF INHALER INH SCH ×2 (06:46→18:38)
[2018-12-04] MEDS: Allopurinol 300 MG TAB PO SCH (07:37)
[2018-12-04] MEDS: Isosorbide Mononitrate 20 MG TAB PO SCH (07:37)
[2018-12-04] MEDS: hydrALAZINE 25 MG TAB PO SCH (07:37)
[2018-12-04] MEDS: Senokot S 8.6-50 MG TAB PO SCH ×2 (07:38→21:09)
--- NOTE | 2018-12-04 07:53 | RAD ---
SINGLE VIEW CHEST: HISTORY: Pneumonia. COMPARISON: 12/03/2018 FINDINGS: A single view of the chest shows an enlarged but stable cardiomediastinal silhouette. The dialysis c atheter and central venous catheter are unchanged in position. There is a moderate right pleural eff usion. IMPRESSION: Stable exam. POS: [facility]
[2018-12-04] MEDS: Famotidine/PF 20 mg/2ml Vial SLOW IVP SCH (08:25)
[2018-12-04] MEDS: Liothyronine Sodium 5 MCG TAB PO SCH (09:04)
[2018-12-04] MEDS: Insulin Glargine 20 UNITS in Pre-Filled Syringe 1 EACH SC SCH (09:04)
--- NOTE | 2018-12-04 09:05 | PDOC.CTH ---
Cardiology Progress Note - Subjective Better today. Still on /DOP. Added low dose levophed for dialysis. Off bipap - Objective Vital Signs Pulse Resp Pulse Ox 12/04/18 08:00 100 12/04/18 07:37 68 12/04/18 06:49 98 12/04/18 06:47 68 12/04/18 06:46 68 18 99 12/04/18 02:17 68 12/03/18 23:24 77 12/03/18 22:16 77 Admit Weight 298 lb 2 oz Weight 297 lb 13.512 oz 12/03/18 12/04/18 12/05/18 06:59 06:59 06:59 Intake Total 1871 Output Total 40 Balance -40 1871 - Physical Examination General/Neuro: NAD Neck: carotid US brisk, no JVD present Lungs: unlabored respirations Heart: RRR Abdomen: NT/ND, soft Extremities: + femoral B - Labs Result Diagrams: 12/04/18 04:50 12/04/18 04:50 Troponin/CKMB Troponin I 0.012 ng/mL (< 0.028) 12/03/18 07:57 - Assessment/Plan Acute on chronic systolic HF ESRD CAD HTN DM Anemia MONCHO TIA REC 12/04 Wean off levophed, dopamine after dialysis Continue dobutrex for now No other changes REC 12/03 Pt given atropine at bedside. appropriate response Add dobutamine, dopamine for HR and BP support Plan is to dialyse today
[2018-12-04] MEDS: Heparin 5,000 UNITS/ML VIAL SC SCH ×2 (09:48→21:10)
--- NOTE | 2018-12-04 09:55 | PRG ---
DATE OF SERVICE: 12/04/2018 TIME SPENT: 35 minutes of critical care time. SUBJECTIVE: The patient remains on dopamine and dobutamine drips. She is also on noninvasive ventilation. She is awake and talkative this morning. PHYSICAL EXAMINATION: VITAL SIGNS: Her temperature is 98.4, pulse 68, blood pressure 119/62, and O2 saturation 100%. A 24-hour intake 1871, output 0. HEENT: Unremarkable. NECK: No adenopathy or JVD. LUNGS: Fairly clear anteriorly. CARDIAC: S1 and S2, regular on the drips. ABDOMEN: Soft, obese, and nontender. EXTREMITIES: Edematous throughout. IMAGING STUDIES: Her chest x-ray shows bilateral pleural effusions. LABORATORY DATA: Sodium 133, potassium 6.2, chloride 97, CO2 of 29, BUN 65, creatinine 2.8, and glucose 100. White blood cell count 15.3, hematocrit 24.8, and platelet count 99. ASSESSMENT: 1. Acute hypoxic hypercapnic respiratory failure, requiring noninvasive ventilation. 2. Component of heart failure with symptomatic bradycardia yesterday. Her clinical course is actually improved more with the dobutamine and dopamine than anything else. 3. Chronic renal failure with hyperkalemia and fluid overload. 4. Diabetes mellitus. 5. Massive obesity. PLAN: 1. Dialysis today. 2. Continue the dobutamine and dopamine. 3. Holding Coreg. 4. Trial of BiPAP. Job ID: [id number]
[2018-12-04] MEDS ORDERED: Norepinephrine 8 MG in Dextrose 5% in Water 250 ML IVPB PRN (10:43)
[2018-12-04] MEDS ORDERED: Heparin 1,000 UNITS/ML VIAL ONE (11:11)
--- NOTE | 2018-12-04 13:23 | PDOC.PN ---
- Subjective Encounter Start Date: 12/04/18 Encounter Start Time: 13:22 Patient seen and examined, no new issues or complaints, all questions answered. - Objective Resuscitation Status - Order Detail: 11/29/18 18:08 Resuscitation Status Routine Co-Sign Provider: Resuscitation Status: FULL: Full Resuscitation Vital Signs & Weight: Vital Signs (12 hours) Pulse Resp Pulse Ox 12/04/18 08:00 100 12/04/18 07:37 68 12/04/18 06:49 98 12/04/18 06:47 68 12/04/18 06:46 68 18 99 12/04/18 02:17 68 Weight Admit Weight 298 lb 2 oz Weight 297 lb 13.512 oz Most Recent Monitor Data Heart Rate from ECG 96 NIBP 137/62 NIBP BP-Mean 87 Respiration from ECG 18 SpO2 97 I&O: 12/03/18 12/04/18 12/05/18 06:59 06:59 06:59 Intake Total 1871 Output Total 40 Balance -40 1871 Result Diagrams: 12/04/18 04:50 12/04/18 04:50 Additional Labs: Accuchecks 12/04/18 12/04/18 12/03/18 06:12 00:30 16:50 POC Glucose 110 109 103 Phys Exam - Physical Examination Constitutional: NAD HEENT: PERRLA, moist MMs, sclera anicteric Neck: no nodes, no JVD, supple Respiratory: no wheezing, no rales, no rhonchi Cardiovascular: RRR, no significant murmur, no rub Gastrointestinal: soft, non-tender, no distention, positive bowel sounds Musculoskeletal: pulses present, edema present Dx/Plan (1) Respiratory acidosis Code(s): E87.2 - ACIDOSIS Status: Acute (2) ESRD needing dialysis Code(s): N18.6 - END STAGE RENAL DISEASE; Z99.2 - DEPENDENCE ON RENAL DIALYSIS Status: Acute Comment: HD catheter placement today, initiate HD per Renal service, outpt AV fistula placement (3) Volume overload Code(s): E87.70 - FLUID OVERLOAD, UNSPECIFIED Status: Acute Comment: Secondary to ESRD, improving (4) Acute respiratory failure with hypoxia Code(s): J96.01 - ACUTE RESPIRATORY FAILURE WITH HYPOXIA Status: Acute (5) Diabetes mellitus type 2 in obese Code(s): E11.69 - TYPE 2 DIABETES MELLITUS WITH OTHER SPECIFIED COMPLICATION; E66.9 - OBESITY, UNSPECIFIED Status: Chronic Comment: Resume home insulin regiment with Lantus 20u BID, ISS, ADA (6) Hypertension Code(s): I10 - ESSENTIAL (PRIMARY) HYPERTENSION Status: Chronic - Plan * looking much better today * on two pressors * HD per renal for now for volume removal * cont current plan of care for now * no family at bedside
[2018-12-04] MEDS: Atorvastatin Calcium 40 MG TAB PO SCH (21:09)
[2018-12-05 05:47] LABS: #Eosinphils 0.2 thou/uL (0.0-0.7); #Lymphocytes 0.5 thou/uL (1.20-3.40); #Monocytes 0.9 thou/uL (0.11-0.59); #Neutrophils 8.4 thou/uL (1.40-6.50); %Eosinophils 1.9 % (0.0-10.0); %Lymphocytes 4.9 % (21.0-51.0); %Monocytes 8.8 % (0.0-10.0); %Neutrophils 84.5 % (42.0-75.0); Hemoglobin 6.9 g/dL (12.0-16.0); Mean Corpuscular HGB CONC 31.1 g/dL (32.0-36.0); Mean Corpuscular Hemoglobin 31.1 pg (27.0-31.0); Mean Platelet Volume 10.3 fL (7.4-10.4); Platelet Count 97 thou/uL (130-400); RBC Distribution Width 16.8 % (11.5-14.5); Red Blood Cell (RBC) Count 2.22 mill/uL (4.20-5.40); White Blood Cell (WBC) Count 9.9 thou/uL (4.8-10.8)
[2018-12-05 05:56] LABS: Anion Gap 13 mmol/L (10-20); BUN (Urea Nitrogen) 44 mg/dL (9.8-20.1); Calc. Creatinine Clearance 37 mL/min (70-130); Calcium 8.8 mg/dL (7.8-10.44); Carbon Dioxide 29 mmol/L (23-31); Chloride 97 mmol/L (98-107); Estimated GFR-MDRD 19; Glucose 102 mg/dL (83-110); Potassium 4.9 mmol/L (3.5-5.1); Sodium 134 mmol/L (136-145)
--- NOTE | 2018-12-05 08:04 | RAD ---
Chest one view HISTORY: Pneumonia. Follow-up. COMPARISON: 12/04/2018. FINDINGS: Cardiac silhouette is magnified, enlarged, and partially obscured by bibasilar infiltrates and pleural fluid that have increased slightly. Pulmonary vasculature is more engorged. Mediastinum is midline with aortic calcification. Lines and tubes appear unchanged in position. No evidence of pn eumothorax. Hemostasis clips over the left axilla. IMPRESSION: Radiographic worsening of pulmonary edema and pleural fluid.
[2018-12-05] MEDS: Mometasone/Formoterol 120 PUFF INHALER INH SCH ×2 (08:22→18:43)
[2018-12-05] MEDS: Heparin 5,000 UNITS/ML VIAL SC SCH ×2 (08:50→22:13)
[2018-12-05] MEDS: Senokot S 8.6-50 MG TAB PO SCH ×2 (08:51→22:11)
[2018-12-05] MEDS: Famotidine/PF 20 mg/2ml Vial SLOW IVP SCH (08:51)
[2018-12-05] MEDS: Allopurinol 300 MG TAB PO SCH (08:51)
[2018-12-05] MEDS: Liothyronine Sodium 5 MCG TAB PO SCH (08:58)
[2018-12-05] MEDS: Aspirin 81 mg Enteric Coated Tablet PO SCH ×2 (09:06→09:46)
--- NOTE | 2018-12-05 09:51 | PRG ---
DATE OF SERVICE: 12/05/2018 SERVICE: Pulmonary Medicine. INTERVAL HISTORY: The patient is doing really well from respiratory standpoint. She has been weaned down to 4 L nasal cannula. The dopamine is off, but she remains on the dobutamine at 10 mcg. She denies any chest pain, fevers, chills, nausea , or vomiting. She is tolerating dialysis at this point. PHYSICAL EXAMINATION: VITAL SIGNS: Afebrile, currently. Her temperature has previously been low at 95 degrees. Pulse 71, blood pressure 120/48, respirations 14, and saturation 96% on 4 L nasal cannula. GENERAL: The patient is awake and alert, in no apparent distress. LUNGS: Excellent air entry. There is a prolonged expiratory phase with wheezing and crackles predominating. HEART: Normal rate. Regular. ABDOMEN: Soft, nontender, and nondistended. Bowel sounds are positive. MUSCULOSKELETAL: No cyanosis or clubbing. There is diffuse pitting edema throughout bilateral upper and lower extremities. NEUROLOGIC: Grossly nonfocal. LABORATORY DATA: WBC 9.9, hemoglobin 6.9, platelets 97,000. Creatinine 2.40 and BUN 44. Basic metabolic profile is otherwise stable or unremarkable. HIV and hepatitis serologies are unremarkable. Urine culture is negative at 36 hours. IMAGING STUDIES: Chest x-ray demonstrates bilateral pleural effusions. The right side is greater than the left side. Underlying infiltrate cannot be excluded. There is a tunneled dialysis catheter that terminates in good position. There is also a left IJ that terminates in very good position. Pulmonary vascular congestion and cephalization are noted. ASSESSMENT: 1. Acute hypoxic respiratory failure. 2. Symptomatic bradycardia. 3. End-stage renal disease. 4. Morbid obesity. 5. Chronic obstructive pulmonary disease with mild exacerbation. DISCUSSION AND PLAN: We will continue to dialyze the patient until she returns to euvolemia. The dopamine is off. We are on the dobutamine still. She will need to remain in the ICU until we can titrate down to 5 mcg. Definitive therapy for her heart is currently pending. I will check a TSH, we will give a unit of blood today. We will begin mobilization efforts and involve Physical Therapy to work with the patient. Pulmonary/Critical Care will continue to follow in this location. Dr. Croft has an established relationship with Ms. Higgins and he will assume care in the morning. Job ID: [id number] [facility]
--- NOTE | 2018-12-05 12:08 | PDOC.CTH ---
Cardiology Progress Note - Subjective The pt seen and examined. No overnight events. No cardiac complaints. - Objective Vital Signs Temp Pulse Resp BP Pulse Ox 12/05/18 11:12 97.3 F L 76 23 H 117/49 L 93 L 12/05/18 11:00 97.3 F L 12/05/18 08:24 93 L 12/05/18 04:00 97.9 F Admit Weight 298 lb 2 oz Weight 293 lb 3.437 oz 12/04/18 12/05/18 12/06/18 06:59 06:59 06:59 Intake Total 1871 1551.8 387 Balance 1871 1551.8 387 - Physical Examination General/Neuro: alert & oriented x3 Neck: no JVD present Lungs: other: (diminished at bases) Heart: RRR Abdomen: soft Extremities: other: (2-3+ pitting BLE and ABD edema) - Telemetry Telemetry Rhythm: SR - Labs Result Diagrams: 12/05/18 05:20 12/05/18 05:20 Troponin/CKMB Troponin I 0.012 ng/mL (< 0.028) 12/03/18 07:57 - Assessment/Plan 1. 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 ESRD with HD - managed by Dr Fox 3. CAD without intervention - On BBlocker, ASA, and Statin 4. HTN - stable; 5. DM type 2 - managed by PCP 6. Anemia 2/2 CKD - Hgb 8.1 today 7. Sleep Apnea - may need Cpap at Bedside 8. Hx of multiple TIAs - On Plavix 9. Bradycardia - Dopamine is off now. MAR reviewed Pt. seen and eval. by me. I agree with the A/P by the INFORMATION SERVICES MANAGER. Exam : chest : expiratory wheezes. Regular rhythm. 2+ edema. Review of Systems - Review of Systems Constitutional: reports: weakness EENTM: reports: no symptoms reported Respiratory: reports: no symptoms reported Cardiac (ROS): reports: no symptoms reported ABD/GI: reports: no symptoms reported : reports: no symptoms reported
--- NOTE | 2018-12-05 13:29 | PRG ---
DATE OF SERVICE: 12/05/2018 SUBJECTIVE: The patient states she feels slightly better, but still does not feel great. She has some irritation of her eyes. Nurses also reported the patient has had some vaginal area bleeding. OBJECTIVE: VITAL SIGNS: Temperature 97.3, pulse 76, respirations 23, O2 saturation 93% on nasal cannula, and blood pressure is 117/49. GENERAL APPEARANCE: Obese, age-appropriate female, in no distress. She is awake, alert, oriented, pleasant, and cooperative. HEART: Regular rhythm with frequent ectopy. LUNGS: Clear bilaterally. ABDOMEN: Soft, nontender, and nondistended. EXTREMITIES: Have 3+ pitting edema to the level of the knee. : Compromised by the patient's body habitus. Does reveal some mild external bright red blood at the labia majora, but no further details can be elucidated based on the limited exam. LABORATORY DATA: White count is 9.9, hemoglobin 6.9, and platelets 97. Sodium 134, potassium 4.9, chloride 97, BUN 44, creatinine is 2.40, GFR is 19, glucose 111. Chest x-ray from today shows worsening pulmonary edema and pleural fluid. IMPRESSION AND PLAN: 1. Acute hypoxic respiratory failure secondary to volume overload. Continuing supplemental oxygen, BiPAP as needed. 2. End-stage renal disease. The patient has progressed from chronic kidney disease to end-stage disease with volume overload requiring hemodialysis directed by Dr. Fox. The patient's chest x-ray continues to show worsening pulmonary edema. Unfortunately, her heart rate and blood pressure have not tolerated very aggressive dialysis, which she will continue tomorrow in order to address her volume overload. 3. Pulmonary edema secondary to volume overload with oliguria. 4. Anemia secondary to chronic kidney disease, possibly related to some acute bleeding either from the bladder or the vaginal area, receiving a unit of blood today. 5. Thrombocytopenia, chronic. The patient continues on Plavix and aspirin. 6. Acute on chronic combined heart failure, and she was on the beta-shannon previously. It has been discontinued because of bradycardia. Continue volume control with dialysis. 7. History of coronary artery disease. Continuing aspirin and statin. 8. Diabetes mellitus, stable. 9. History of multiple transient ischemic attacks. Continue Plavix and aspirin. 10. Bradycardia. Beta-shannon being held, she was on dopamine and dobutamine, now on dobutamine, attempts at weaning that thus far have not been successful. 11. Vaginal versus urethral bleeding. The patient had a Cardozo catheter placed at one point with some hematuria. It is unclear at this point where the blood may be coming from, but does not appear to be aggressively bleeding. We will continue to monitor. The patient needs to be on the anti-platelet therapy, and therefore, we will simply give this a minute to see if it is going to discontinue on its own. If it does not, we may need to have Urology or Gynecology or both evaluate the patient. Job ID: [id number]
--- NOTE | 2018-12-05 17:44 | PDOC.EVN ---
Event Note - Event Note Event Note: Notified patient was having some confusion that is new. Non-focal exam per nurse. No psychotropic meds on board. Had the transfusion at least 4-5 hours ago. Will continue to monitor neuro exam and notify me if any focal findings develop. Would CT heat at that time.
[2018-12-05] MEDS: Polyvinyl Alcohol 1.4%/Povidone 0.6% Opth Drops EA EYE SCH ×2 (18:50→22:11)
[2018-12-05] MEDS: Clopidogrel Bisulfate 75 MG TAB PO SCH (18:51)
[2018-12-05] MEDS: Atorvastatin Calcium 40 MG TAB PO SCH (22:11)
[2018-12-06] MEDS ORDERED: ALPRAZolam 0.5 MG TAB PO SCH (00:30)
[2018-12-06 05:01] LABS: #Eosinphils 0.2 thou/uL (0.0-0.7); #Lymphocytes 0.5 thou/uL (1.20-3.40); #Monocytes 0.6 thou/uL (0.11-0.59); #Neutrophils 6.7 thou/uL (1.40-6.50); %Lymphocytes 5.7 % (21.0-51.0); %Neutrophils 85.3 % (42.0-75.0); Hemoglobin 7.8 g/dL (12.0-16.0); Mean Corpuscular HGB CONC 31.7 g/dL (32.0-36.0); Mean Corpuscular Hemoglobin 30.8 pg (27.0-31.0); Mean Corpuscular Volume 97.4 fL (78.0-98.0); Mean Platelet Volume 10.2 fL (7.4-10.4); Platelet Count 98 thou/uL (130-400); RBC Distribution Width 17.5 % (11.5-14.5); Red Blood Cell (RBC) Count 2.51 mill/uL (4.20-5.40); White Blood Cell (WBC) Count 7.9 thou/uL (4.8-10.8)
[2018-12-06 05:15] LABS: Anion Gap 12 mmol/L (10-20); BUN (Urea Nitrogen) 51 mg/dL (9.8-20.1); Calc. Creatinine Clearance 30 mL/min (70-130); Calcium 9.3 mg/dL (7.8-10.44); Carbon Dioxide 28 mmol/L (23-31); Chloride 95 mmol/L (98-107); Estimated GFR-MDRD 15; Glucose 87 mg/dL (83-110); Sodium 130 mmol/L (136-145)
[2018-12-06 05:48] LABS: Folate (Folic Acid) 10.9 ng/mL (7.0-31.4)
[2018-12-06] MEDS: Mometasone/Formoterol 120 PUFF INHALER INH SCH ×2 (07:27→18:26)
[2018-12-06] MEDS: Senokot S 8.6-50 MG TAB PO SCH ×2 (09:18→21:31)
[2018-12-06] MEDS: Polyvinyl Alcohol 1.4%/Povidone 0.6% Opth Drops EA EYE SCH ×4 (09:18→21:32)
[2018-12-06] MEDS: Aspirin 81 mg Enteric Coated Tablet PO SCH (09:19)
[2018-12-06] MEDS: Famotidine/PF 20 mg/2ml Vial SLOW IVP SCH (09:19)
[2018-12-06] MEDS: Liothyronine Sodium 5 MCG TAB PO SCH (09:19)
[2018-12-06] MEDS: Heparin 5,000 UNITS/ML VIAL SC SCH ×2 (09:19→21:31)
[2018-12-06] MEDS: Allopurinol 100 MG TAB PO SCH (09:19)
--- NOTE | 2018-12-06 09:41 | PRG ---
DATE OF SERVICE: 12/06/2018 SUBJECTIVE: This morning, she is still confused, short of breath. X-ray shows a large pleural effusion on the right side. She is to be dialyzed. OBJECTIVE: VITAL SIGNS: Pulse 56, sats are 94% on 4 L, respiratory rate 18, blood pressure 120/73, and respiratory rate 18. GENERAL: She is morbidly obese. CHEST: Decreased breath sounds. No wheezing. CARDIAC: Normal S1 and S2. No gallops. ABDOMEN: No masses. LABORATORY DATA: White count 7000, H and H 7 and 24, platelet count is low at 98. IMPRESSION: Multiorgan failure, congestive cardiomyopathy, chronic renal failure, pleural effusion, and morbidly obese. PLAN: From the Pulmonary standpoint of view, at this stage, we are going to continue supportive care, PT, noninvasive ventilation, dialysis. Her long-term prognosis is grave. Palliative Care has been called to see the patient. Minimize sedation. This is a One-half hour of critical time. Job ID: [id number]
--- NOTE | 2018-12-06 11:15 | PDOC.CTH ---
Cardiology Progress Note - Subjective The pt seen and examined. No overnight events. Complains of lethargic. - Objective Vital Signs Temp Pulse Resp Pulse Ox 12/06/18 08:00 96.3 F L 92 L 12/06/18 07:27 56 L 18 94 L 12/06/18 03:33 94 L 12/06/18 03:00 97.4 F L Admit Weight 298 lb 2 oz Weight 295 lb 3.183 oz 12/05/18 12/06/18 12/07/18 06:59 06:59 06:59 Intake Total 1551.8 1372 114 Balance 1551.8 1372 114 - Physical Examination General/Neuro: alert & oriented x3 Neck: no JVD present Lungs: other: (diminished at bases) Heart: RRR Abdomen: soft Extremities: other: (Generalized edema;) - Telemetry Telemetry Rhythm: SR - Labs Result Diagrams: 12/06/18 04:35 12/06/18 04:35 Troponin/CKMB Troponin I 0.012 ng/mL (< 0.028) 12/03/18 07:57 - Assessment/Plan 1. Acute on Chronic combined HF - On Dobutamine and off Coreg;Not on Lasix or metolazone; not on DUARTE/ARB 2/2 CKD and hypotension 2. ESRD with HD - managed by Dr Fox 3. CAD without intervention - On BBlocker, ASA, and Statin 4. HTN - stable with Dobutamine 5. DM type 2 - managed by PCP 6. Anemia 2/2 CKD - Hgb 7.8 today with s/p 1 unit of PRBC tx on 12/05/2018 7. Sleep Apnea - may need Cpap at Bedside 8. Hx of multiple TIAs - On Plavix and ASA 9. Bradycardia - Dopamine is off now. MAR reviewed Pt. seen and eval. by me. I agree with the A/P by the LAND SALES AGENT. She is confused and ramble in conversation. No c/o pain. Just finished dialysis when I saw her. Chest clear anteriorly. RRR. 1-2+ lower extemity edema. Improved from yesterday. Continue present therapy. Wean dobutamine. repeat echo. [email or web address] Review of Systems - Review of Systems Constitutional: reports: weakness EENTM: reports: no symptoms reported Respiratory: reports: no symptoms reported Cardiac (ROS): reports: no symptoms reported ABD/GI: reports: no symptoms reported
[2018-12-06] MEDS ORDERED: Heparin 10,000 UNITS/1 ML VIAL ONE (15:00)
--- NOTE | 2018-12-06 16:25 | PDOC.PN ---
- Subjective Encounter Start Date: 12/06/18 Encounter Start Time: 13:00 Still confused. No new problems noted other than the confusion. - Objective Resuscitation Status - Order Detail: 11/29/18 18:08 Resuscitation Status Routine Co-Sign Provider: Resuscitation Status: FULL: Full Resuscitation Vital Signs & Weight: Vital Signs (12 hours) Temp Pulse Resp Pulse Ox 12/06/18 12:21 97.2 F L 12/06/18 08:00 96.3 F L 92 L 12/06/18 07:27 56 L 18 94 L Weight Admit Weight 298 lb 2 oz Weight 295 lb 3.183 oz Most Recent Monitor Data Heart Rate from ECG 69 NIBP 115/45 NIBP BP-Mean 68 Respiration from ECG 23 SpO2 95 I&O: 12/05/18 12/06/18 12/07/18 06:59 06:59 06:59 Intake Total 1551.8 1372 114 Balance 1551.8 1372 114 Result Diagrams: 12/06/18 04:35 12/06/18 04:35 Additional Labs: Accuchecks 12/06/18 12/06/18 12/05/18 11:45 09:10 21:37 POC Glucose 81 89 110 12/05/18 16:30 POC Glucose 116 H Phys Exam - Physical Examination Constitutional: NAD Confused. Generally pleasant. Respiratory: no wheezing, no rales, no rhonchi, clear to auscultation bilateral Cardiovascular: RRR, no significant murmur Gastrointestinal: soft, non-tender, no distention, positive bowel sounds 3+ pitting edema BLE (actually very slightly better) Neurological: non-focal Dx/Plan (1) Volume overload Code(s): E87.70 - FLUID OVERLOAD, UNSPECIFIED Status: Acute Comment: Secondary to ESRD, improving (2) ESRD needing dialysis Code(s): N18.6 - END STAGE RENAL DISEASE; Z99.2 - DEPENDENCE ON RENAL DIALYSIS Status: Acute Comment: HD catheter placement today, initiate HD per Renal service, outpt AV fistula placement (3) Gross hematuria Status: Acute Comment: Likely due to Cardozo catheter placement in conjunction with dual anti-platelet therapy, continue to monitor for improvement, hold ASA/ Plavix, consider Urology evaluation if no improvement in 24h (4) Anemia in CKD (chronic kidney disease) Code(s): N18.9 - CHRONIC KIDNEY DISEASE, UNSPECIFIED; D63.1 - ANEMIA IN CHRONIC KIDNEY DISEASE Status: Chronic Comment: Due to CKD, serial H/H monitoring (5) Chronic respiratory failure with hypoxia Code(s): J96.11 - CHRONIC RESPIRATORY FAILURE WITH HYPOXIA Status: Chronic Comment: Continue O2 supplementation at home levels via NC (6) Diabetes mellitus type 2 in obese Code(s): E11.69 - TYPE 2 DIABETES MELLITUS WITH OTHER SPECIFIED COMPLICATION; E66.9 - OBESITY, UNSPECIFIED Status: Chronic Comment: Resume home insulin regiment with Lantus 20u BID, ISS, ADA (7) Hypertension Code(s): I10 - ESSENTIAL (PRIMARY) HYPERTENSION Status: Chronic (8) Hypotension Status: Acute (9) Acute metabolic encephalopathy Code(s): G93.41 - METABOLIC ENCEPHALOPATHY Status: Acute - Plan * BP holding well during dialysis. On Dobut at 2.5 mcg. * Will continue to wean as tolerated. * Continue to pull volume off of her as possible. * New onset delerium/encephalopathy. Suspect just related to hospitalization. Appears otherwise benign.
[2018-12-06] MEDS: Clopidogrel Bisulfate 75 MG TAB PO SCH (18:00)
[2018-12-06] MEDS: Enoxaparin Sodium 30 MG/0.3 ML SYRINGE SC SCH (18:17)
[2018-12-06] MEDS: Carvedilol 6.25 MG TAB PO SCH (18:17)
[2018-12-06] MEDS: Atorvastatin Calcium 40 MG TAB PO SCH (21:31)
[2018-12-07 04:20] LABS: #Eosinphils 0.2 thou/uL (0.0-0.7); #Lymphocytes 0.5 thou/uL (1.20-3.40); #Monocytes 0.4 thou/uL (0.11-0.59); #Neutrophils 5.6 thou/uL (1.40-6.50); %Basophils 0.4 % (0.0-1.0); %Eosinophils 3.2 % (0.0-10.0); %Lymphocytes 6.9 % (21.0-51.0); %Monocytes 6.2 % (0.0-10.0); %Neutrophils 83.3 % (42.0-75.0); Hemoglobin 8.3 g/dL (12.0-16.0); Mean Corpuscular HGB CONC 31.2 g/dL (32.0-36.0); Mean Corpuscular Hemoglobin 30.3 pg (27.0-31.0); Mean Corpuscular Volume 97.3 fL (78.0-98.0); Mean Platelet Volume 9.4 fL (7.4-10.4); Platelet Count 105 thou/uL (130-400); RBC Distribution Width 17.3 % (11.5-14.5); Red Blood Cell (RBC) Count 2.75 mill/uL (4.20-5.40); White Blood Cell (WBC) Count 6.7 thou/uL (4.8-10.8)
[2018-12-07 04:39] LABS: Anion Gap 12 mmol/L (10-20); BUN (Urea Nitrogen) 30 mg/dL (9.8-20.1); Calc. Creatinine Clearance 41 mL/min (70-130); Calcium 9.1 mg/dL (7.8-10.44); Carbon Dioxide 30 mmol/L (23-31); Chloride 98 mmol/L (98-107); Estimated GFR-MDRD 21; Glucose 76 mg/dL (83-110); Potassium 4.5 mmol/L (3.5-5.1); Sodium 135 mmol/L (136-145)
[2018-12-07] MEDS: Mometasone/Formoterol 120 PUFF INHALER INH SCH ×2 (06:44→18:59)
--- NOTE | 2018-12-07 08:42 | PRG ---
DATE OF SERVICE: 12/07/2018 SUBJECTIVE: Omer Higgins is an 83-year-old female, remains encephalopathic in the ICU, confused, agitated. OBJECTIVE: VITAL SIGNS: Pulse 56, blood pressure 129/66, respirations 24, sats are 94% on a Ventimask. She was dialyzed yesterday. EXTREMITIES: She moves all 4 extremities. CHEST: Decreased breath sounds. No wheezing. CARDIAC: Normal S1, S2. No gallop. ABDOMEN: No masses. LABORATORY DATA: Creatinine is 2.1, BUN is 30. IMPRESSION: Metabolic encephalopathy, morbid obesity, probably sleep apnea, chronic obstructive pulmonary disease, marked respiratory acidosis, congestive heart failure, renal failure. PLAN: P.r.n. Xanax has been ordered. Continue PT, supportive care, cardiac care. Pulmonary will follow. She is on Dobutrex. Job ID: [id number]
[2018-12-07] MEDS: ALPRAZolam 0.5 MG TAB PO PRN ×2 (09:00→15:33)
[2018-12-07] MEDS: Aspirin 81 mg Enteric Coated Tablet PO SCH (09:02)
[2018-12-07] MEDS: Allopurinol 100 MG TAB PO SCH (09:02)
[2018-12-07] MEDS: Famotidine/PF 20 mg/2ml Vial SLOW IVP SCH (09:02)
[2018-12-07] MEDS: Senokot S 8.6-50 MG TAB PO SCH ×2 (09:02→20:40)
[2018-12-07] MEDS: Liothyronine Sodium 5 MCG TAB PO SCH (09:02)
[2018-12-07] MEDS: Heparin 5,000 UNITS/ML VIAL SC SCH ×2 (09:04→20:40)
[2018-12-07] MEDS: Polyvinyl Alcohol 1.4%/Povidone 0.6% Opth Drops EA EYE SCH ×3 (09:10→20:40)
--- NOTE | 2018-12-07 15:06 | PDOC.PN ---
- Subjective Encounter Start Date: 12/07/18 Encounter Start Time: 13:30 Less confused. Has several questions regarding her situation. - Objective Resuscitation Status - Order Detail: 11/29/18 18:08 Resuscitation Status Routine Co-Sign Provider: Resuscitation Status: FULL: Full Resuscitation Vital Signs & Weight: Vital Signs (12 hours) Temp Pulse Resp Pulse Ox 12/07/18 12:37 67 20 91 L 12/07/18 12:00 98 F 12/07/18 08:00 97.2 F L 12/07/18 07:14 94 L 12/07/18 07:00 97.2 F L Weight Admit Weight 298 lb 2 oz Weight 4.639 oz Most Recent Monitor Data Heart Rate from ECG 65 NIBP 132/48 NIBP BP-Mean 76 Respiration from ECG 20 SpO2 95 I&O: 12/06/18 12/07/18 12/08/18 06:59 06:59 06:59 Intake Total 1372 318.3 240 Output Total 0 0 Balance 1372 318.3 240 Result Diagrams: 12/07/18 04:05 12/07/18 04:05 Additional Labs: Accuchecks 12/07/18 12/06/18 12/06/18 06:08 21:31 16:26 POC Glucose 81 98 73 Phys Exam - Physical Examination Constitutional: NAD Respiratory: no wheezing, no rales, no rhonchi Cardiovascular: RRR, no significant murmur Gastrointestinal: soft, non-tender, no distention, positive bowel sounds 3+ pitting edema. BLE Neurological: non-focal Deviation from normal: Much improved, but still confused. Dx/Plan (1) Volume overload Code(s): E87.70 - FLUID OVERLOAD, UNSPECIFIED Status: Acute Comment: Secondary to ESRD, improving (2) ESRD needing dialysis Code(s): N18.6 - END STAGE RENAL DISEASE; Z99.2 - DEPENDENCE ON RENAL DIALYSIS Status: Acute Comment: HD catheter placement today, initiate HD per Renal service, outpt AV fistula placement (3) Gross hematuria Status: Acute Comment: Likely due to Cardozo catheter placement in conjunction with dual anti-platelet therapy, continue to monitor for improvement, hold ASA/ Plavix, consider Urology evaluation if no improvement in 24h (4) Anemia in CKD (chronic kidney disease) Code(s): N18.9 - CHRONIC KIDNEY DISEASE, UNSPECIFIED; D63.1 - ANEMIA IN CHRONIC KIDNEY DISEASE Status: Chronic Comment: Due to CKD, serial H/H monitoring (5) Chronic respiratory failure with hypoxia Code(s): J96.11 - CHRONIC RESPIRATORY FAILURE WITH HYPOXIA Status: Chronic Comment: Continue O2 supplementation at home levels via NC (6) Diabetes mellitus type 2 in obese Code(s): E11.69 - TYPE 2 DIABETES MELLITUS WITH OTHER SPECIFIED COMPLICATION; E66.9 - OBESITY, UNSPECIFIED Status: Chronic Comment: Resume home insulin regiment with Lantus 20u BID, ISS, ADA (7) Hypertension Code(s): I10 - ESSENTIAL (PRIMARY) HYPERTENSION Status: Chronic (8) Hypotension Status: Acute Comment: Now weaned off of the pressors. (9) Acute metabolic encephalopathy Code(s): G93.41 - METABOLIC ENCEPHALOPATHY Status: Acute - Plan * Continue dialyisis. * Echo showed evidence of persistent volume overload and TR. * Still substantially overloaded. * Taking off volume as tolerated.
--- NOTE | 2018-12-07 17:53 | PDOC.CTH ---
Cardiology Progress Note - Subjective The pt seen and examined. No overnight events. No cardiac complaints. She is more confused today. - Objective Vital Signs Temp Pulse Resp Pulse Ox 12/07/18 16:00 98.1 F 12/07/18 12:37 67 20 91 L 12/07/18 12:00 98 F 12/07/18 08:00 97.2 F L 12/07/18 07:14 94 L 12/07/18 07:00 97.2 F L Admit Weight 298 lb 2 oz Weight 4.639 oz 12/06/18 12/07/18 12/08/18 06:59 06:59 06:59 Intake Total 1372 318.3 360 Output Total 0 0 Balance 1372 318.3 360 - Physical Examination Lungs: other: (coarses and diminished at bases) Heart: RRR Abdomen: soft Extremities: other: (2+ pitting generalized edema) - Telemetry Telemetry Rhythm: SR - Labs Result Diagrams: 12/07/18 04:05 12/07/18 04:05 Troponin/CKMB Troponin I 0.012 ng/mL (< 0.028) 12/03/18 07:57 - Assessment/Plan 1. 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 ESRD with HD - managed by Dr Fox 3. CAD without intervention - On BBlocker, ASA, and Statin 4. HTN - stable with Dobutamine 5. DM type 2 - managed by PCP 6. Anemia 2/2 CKD - Hgb 8.3 today with s/p 1 unit of PRBC tx on 12/05/2018 7. Sleep Apnea - may need Cpap at Bedside 8. Hx of multiple TIAs - On Plavix and ASA 9. Bradycardia - Dopamine is off now. MAR reviewed * Echo on 12/07/2018 with EF 60-65%, mild ERV, mod ERA, mild dilated LA, mild MR , trace AR, mod-severe TR, and mod IN pt. seen and eval. by me. She is confused. She denies chest pain.I agree with the A/P by the REFUELING RAMP SUPERVISOR.Overall cardiac status remains stable. Review of Systems - Review of Systems Constitutional: reports: see HPI
[2018-12-07] MEDS: Atorvastatin Calcium 40 MG TAB PO SCH (20:40)
[2018-12-08] MEDS ORDERED: Mag-Al 1200 mg/1200 mg/30 ML UDCUP ONE (05:00)
[2018-12-08] MEDS ORDERED: ALPRAZolam 0.5 MG TAB ONE (05:46)
[2018-12-08] MEDS ORDERED: Mometasone/Formoterol 120 PUFF INHALER ONE (06:29)
[2018-12-08] MEDS: Mometasone/Formoterol 120 PUFF INHALER INH SCH ×2 (07:10→18:38)
[2018-12-08] MEDS ORDERED: Heparin 10,000 UNITS/ 10 ML VIAL ONE (09:00)
--- NOTE | 2018-12-08 09:03 | PRG ---
DATE OF SERVICE: 12/08/2018 SUBJECTIVE: This morning, she is sleepy, was given some Xanax. OBJECTIVE: VITAL SIGNS: Pulse 60, blood pressure is 103/42, saturations are 95% on 3 L, respiratory rate 18. She was dialyzed. Denies difficulty breathing. CHEST: Decreased breath sounds. No wheezing. CARDIAC: Normal S1, S2. No gallops. ABDOMEN: No masses. IMPRESSION: Congestive heart failure, chronic obstructive pulmonary disease, pleural effusion, chronic renal failure, severe deconditioning, major anxiety. Low-dose Seroquel and Xanax was initiated on p.r.n. basis. Awaited input from lab. We will follow. Job ID: [id number]
--- NOTE | 2018-12-08 09:30 | PDOC.PN ---
- Subjective Encounter Start Date: 12/08/18 Encounter Start Time: 09:06 Still confused. Complains of some pain in left hand/arm. - Objective Resuscitation Status - Order Detail: 11/29/18 18:08 Resuscitation Status Routine Co-Sign Provider: Resuscitation Status: FULL: Full Resuscitation Vital Signs & Weight: Vital Signs (12 hours) Temp 12/08/18 07:00 96.0 F L Weight Admit Weight 298 lb 2 oz Weight 4.639 oz Most Recent Monitor Data Heart Rate from ECG 60 NIBP 103/42 NIBP BP-Mean 68 Respiration from ECG 15 SpO2 94 I&O: 12/07/18 12/08/18 12/09/18 06:59 06:59 06:59 Intake Total 318.3 420 Output Total 0 0 Balance 318.3 420 Result Diagrams: 12/07/18 04:05 12/07/18 04:05 Additional Labs: Accuchecks 12/08/18 12/07/18 12/07/18 06:15 15:38 06:08 POC Glucose 72 98 81 Phys Exam - Physical Examination Still encephalopathic. Respiratory: no wheezing, no rales, no rhonchi Exam compromised by habitus and inability to fully follow command Cardiovascular: RRR, no significant murmur Gastrointestinal: soft, non-tender, no distention Severe edema. LUE with persistent ecchymosis from hand to elbow on flexor surface. TTP. No consolidated hematoma. Confused. Dx/Plan (1) Volume overload Code(s): E87.70 - FLUID OVERLOAD, UNSPECIFIED Status: Acute Comment: Secondary to ESRD, improving (2) ESRD needing dialysis Code(s): N18.6 - END STAGE RENAL DISEASE; Z99.2 - DEPENDENCE ON RENAL DIALYSIS Status: Acute Comment: HD catheter placement today, initiate HD per Renal service, outpt AV fistula placement (3) Gross hematuria Status: Acute Comment: Likely due to Cardozo catheter placement in conjunction with dual anti-platelet therapy, continue to monitor for improvement, hold ASA/ Plavix, consider Urology evaluation if no improvement in 24h (4) Anemia in CKD (chronic kidney disease) Code(s): N18.9 - CHRONIC KIDNEY DISEASE, UNSPECIFIED; D63.1 - ANEMIA IN CHRONIC KIDNEY DISEASE Status: Chronic Comment: Due to CKD, serial H/H monitoring (5) Chronic respiratory failure with hypoxia Code(s): J96.11 - CHRONIC RESPIRATORY FAILURE WITH HYPOXIA Status: Chronic Comment: Continue O2 supplementation at home levels via NC (6) Diabetes mellitus type 2 in obese Code(s): E11.69 - TYPE 2 DIABETES MELLITUS WITH OTHER SPECIFIED COMPLICATION; E66.9 - OBESITY, UNSPECIFIED Status: Chronic Comment: Resume home insulin regiment with Lantus 20u BID, ISS, ADA (7) Hypertension Code(s): I10 - ESSENTIAL (PRIMARY) HYPERTENSION Status: Chronic (8) Hypotension Status: Acute Comment: Now weaned off of the pressors. (9) Acute metabolic encephalopathy Code(s): G93.41 - METABOLIC ENCEPHALOPATHY Status: Acute (10) CAD (coronary artery disease) Code(s): I25.10 - ATHSCL HEART DISEASE OF [place] CORONARY ARTERY W/O ANG PCTRS Status: Acute (11) Bradycardia Code(s): R00.1 - BRADYCARDIA, UNSPECIFIED Status: Acute - Plan * Continues to have severe edema and volume overload. * Continuing to remove fluid as possible with dialysis. * Does not appear to be substantially improved overall. * Continue with oxygen support. * Continue pressure support as needed to maintain dialysis. * Pulm/CC initiated seroquel and xanax. A little groggy today. * Hypotension precluding usual meds for heart failure. Cards following. * Bradycardia improved. Off dopamine, still using dobut as necessary. * Palliative Care Consult.
[2018-12-08] MEDS: Heparin 5,000 UNITS/ML VIAL SC SCH ×2 (10:00→21:54)
[2018-12-08] MEDS: Famotidine/PF 20 mg/2ml Vial SLOW IVP SCH (10:00)
[2018-12-08] MEDS: Liothyronine Sodium 5 MCG TAB PO SCH (10:56)
[2018-12-08] MEDS: Aspirin 81 mg Enteric Coated Tablet PO SCH (10:56)
[2018-12-08] MEDS: Senokot S 8.6-50 MG TAB PO SCH ×2 (10:57→21:54)
[2018-12-08] MEDS: Allopurinol 100 MG TAB PO SCH (10:57)
[2018-12-08 11:17] LABS: #Neutrophils 4.7 thou/uL (1.40-6.50); %Basophils 0.2 % (0.0-1.0); %Eosinophils 2.9 % (0.0-10.0); %Lymphocytes 5.4 % (21.0-51.0); %Monocytes 9.8 % (0.0-10.0); %Neutrophils 81.7 % (42.0-75.0); Hemoglobin 8.2 g/dL (12.0-16.0); Mean Corpuscular HGB CONC 30.6 g/dL (32.0-36.0); Mean Corpuscular Hemoglobin 30.2 pg (27.0-31.0); Mean Corpuscular Volume 98.7 fL (78.0-98.0); Mean Platelet Volume 9.6 fL (7.4-10.4); Platelet Count 104 thou/uL (130-400); Red Blood Cell (RBC) Count 2.71 mill/uL (4.20-5.40); White Blood Cell (WBC) Count 5.7 thou/uL (4.8-10.8)
[2018-12-08 11:18] LABS: #Eosinphils 0.2 thou/uL (0.0-0.7); #Lymphocytes 0.3 thou/uL (1.20-3.40); #Monocytes 0.6 thou/uL (0.11-0.59); Band 4 % (5-11); Lymphocytes 18 % (21-51); Monocytes 9 % (0-10)
[2018-12-08 11:19] LABS: Eosinophils 1 % (0-10); Hypochromia SLIGHT = 6-15 cells (100X) (0-5/hpf); Neutrophil 67 % (42-75); Nucleated RBC 1 % (0); Polychromasia SLIGHT = 2-3 cells (100X) (0-2/hpf)
--- NOTE | 2018-12-08 11:41 | PDOC.CTH ---
Cardiology Progress Note - Subjective The pt seen and examined. No overnight events. She is very lethargic, but able to answer questions with nodding head. - Objective Vital Signs Temp Pulse Resp Pulse Ox 12/08/18 08:00 94 L 12/08/18 07:10 61 22 H 90 L 12/08/18 07:00 96.0 F L Admit Weight 298 lb 2 oz Weight 4.639 oz 12/07/18 12/08/18 12/09/18 06:59 06:59 06:59 Intake Total 318.3 420 Output Total 0 0 Balance 318.3 420 - Physical Examination General/Neuro: other: (lethargic) Lungs: other: (diminished at bases) Heart: RRR Abdomen: soft Extremities: other: (generalized edema;) - Telemetry Telemetry Rhythm: SR - Labs Result Diagrams: 12/08/18 04:31 12/07/18 04:05 Troponin/CKMB Troponin I 0.012 ng/mL (< 0.028) 12/03/18 07:57 - Assessment/Plan 1. 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 ESRD with HD - managed by Dr Fox 3. CAD without intervention - On BBlocker, ASA, and Statin 4. HTN - stable with off Dobutamine 5. DM type 2 - managed by PCP 6. Anemia 2/2 CKD - Hgb 8.3 today with s/p 1 unit of PRBC tx on 12/05/2018 7. Sleep Apnea - may need Cpap at Bedside 8. Hx of multiple TIAs - On Plavix and ASA 9. Bradycardia - Dopamine is off now. MAR reviewed * Echo on 12/07/2018 with EF 60-65%, mild ERV, mod ERA, mild dilated LA, mild MR , trace AR, mod-severe TR, and mod PA. Pt. seen and eval. by me. I agree with the A/P by the CUTTING ROOM SUPERVISOR. The echo is as above. she also likely has diastolic dysfunction. She is still confused, more lucid at times. Chest clear anteriorly. RRR. 2+ edema. [facility] prognosis is not good. She will liely need placement after d/c. Review of Systems - Review of Systems Constitutional: reports: see HPI
--- NOTE | 2018-12-08 12:53 | RAD ---
CHEST ONE VIEW: 12/08/18 HISTORY: Respiratory distress. COMPARISON: Radiograph 12/05/18. FINDINGS: Dialysis catheter in the inferior SVC. Left sided central venous catheter inferior SVC. The heart si ze is enlarged. Moderate effusions. Moderate edema. IMPRESSION: Similar examination of the chest. POS: CET
[2018-12-08] MEDS: ALPRAZolam 0.5 MG TAB PO PRN ×2 (15:35→21:54)
[2018-12-08] MEDS: Acetaminophen 325 MG TAB PO PRN (15:37)
[2018-12-08] MEDS: Polyvinyl Alcohol 1.4%/Povidone 0.6% Opth Drops EA EYE SCH ×3 (17:22→22:06)
[2018-12-08] MEDS: Clopidogrel Bisulfate 75 MG TAB PO SCH (18:46)
[2018-12-08 19:25] LABS: Anion Gap 14 mmol/L (10-20); BUN (Urea Nitrogen) 38 mg/dL (9.8-20.1); Calc. Creatinine Clearance 0 mL/min (70-130); Carbon Dioxide 27 mmol/L (23-31); Chloride 98 mmol/L (98-107); Estimated GFR-MDRD 16; Potassium 4.5 mmol/L (3.5-5.1); Sodium 134 mmol/L (136-145)
[2018-12-08 19:26] LABS: Calcium 9.3 mg/dL (7.8-10.44); Glucose 68 mg/dL (83-110)
[2018-12-08] MEDS: Atorvastatin Calcium 40 MG TAB PO SCH (21:54)
[2018-12-09 05:38] LABS: #Eosinphils 0.1 thou/uL (0.0-0.7); #Lymphocytes 0.6 thou/uL (1.20-3.40); #Monocytes 0.7 thou/uL (0.11-0.59); #Neutrophils 4.7 thou/uL (1.40-6.50); %Basophils 0.7 % (0.0-1.0); %Eosinophils 2.4 % (0.0-10.0); %Lymphocytes 9.9 % (21.0-51.0); %Monocytes 10.9 % (0.0-10.0); %Neutrophils 76.2 % (42.0-75.0); Hemoglobin 8.1 g/dL (12.0-16.0); Mean Corpuscular HGB CONC 31.3 g/dL (32.0-36.0); Mean Corpuscular Hemoglobin 30.8 pg (27.0-31.0); Mean Corpuscular Volume 98.4 fL (78.0-98.0); Mean Platelet Volume 9.5 fL (7.4-10.4); Platelet Count 99 thou/uL (130-400); RBC Distribution Width 17.2 % (11.5-14.5); Red Blood Cell (RBC) Count 2.63 mill/uL (4.20-5.40); White Blood Cell (WBC) Count 6.2 thou/uL (4.8-10.8)
[2018-12-09 06:00] LABS: Anion Gap 12 mmol/L (10-20); BUN (Urea Nitrogen) 22 mg/dL (9.8-20.1); Calc. Creatinine Clearance 41 mL/min (70-130); Calcium 9.1 mg/dL (7.8-10.44); Carbon Dioxide 28 mmol/L (23-31); Chloride 100 mmol/L (98-107); Estimated GFR-MDRD 22; Glucose 82 mg/dL (83-110); Sodium 136 mmol/L (136-145)
[2018-12-09] MEDS: Mometasone/Formoterol 120 PUFF INHALER INH SCH ×2 (07:10→18:59)
[2018-12-09] MEDS ORDERED: Midazolam HCl 2 mg/2 ml Vial ONE (07:12)
[2018-12-09] MEDS ORDERED: Fentanyl 100 MCG/2 ML VIAL ONE (07:12)
[2018-12-09] MEDS: Polyvinyl Alcohol 1.4%/Povidone 0.6% Opth Drops EA EYE SCH ×5 (08:00→20:07)
[2018-12-09] MEDS: Clopidogrel Bisulfate 75 MG TAB PO SCH ×2 (08:01→17:48)
[2018-12-09] MEDS ORDERED: CEFAZOLIN 2 GM in Premix Bag 1 BAG IVPB SCH ×2 (08:15→16:30)
--- NOTE | 2018-12-09 08:31 | PRG ---
DATE OF SERVICE: 12/09/2018 SUBJECTIVE: This morning, she is awake, alert, responsive, weak. With the help of , we spoke with the patient at length along with the sister, who was present, she did not want to be resuscitated, did not want to be intubated or CPR. OBJECTIVE: VITAL SIGNS: Pulse of 109, respirations 18, saturations are 98% on 4 L, and blood pressure 102/45. CHEST: Decreased breath sounds. No wheezing. CARDIAC: Normal S1 and S2. No gallops. ABDOMEN: No masses. DIAGNOSTIC DATA: Creatinine 2. White count is 6, H and H 8 and 24. X-ray shows much improvement in the pleural effusion. IMPRESSION: 1. Respiratory failure. 2. Congestive heart failure. 3. Morbid obesity. 4. Sleep apnea. 5. Chronic obstructive pulmonary disease. 6. Chronic renal failure. 7. Major anxiety. PLAN: [facility], she can be transferred out of the ICU. Continue PT, supportive care. We will follow. Job ID: [id number]
[2018-12-09] MEDS: Heparin 5,000 UNITS/ML VIAL SC SCH ×2 (08:35→20:07)
[2018-12-09] MEDS: Aspirin 81 mg Enteric Coated Tablet PO SCH (09:57)
[2018-12-09] MEDS: Liothyronine Sodium 5 MCG TAB PO SCH (09:58)
[2018-12-09] MEDS: Famotidine/PF 20 mg/2ml Vial SLOW IVP SCH (09:58)
[2018-12-09] MEDS: Senokot S 8.6-50 MG TAB PO SCH ×2 (09:58→20:08)
[2018-12-09] MEDS: Allopurinol 100 MG TAB PO SCH (09:58)
--- NOTE | 2018-12-09 16:20 | PDOC.PN ---
- Subjective Encounter Start Date: 12/09/18 Encounter Start Time: 13:00 Doing a little better today. Transferred out of the ICU to the tele floor. Still has some pain in the left hand. - Objective Resuscitation Status - Order Detail: 12/08/18 13:39 Resuscitation Status Routine Resuscitation Status: DNAR: NO Resuscitation Discussed with: confirmed with pt, as well as her new MPOA her brother Floyd Vital Signs & Weight: Vital Signs (12 hours) Temp Pulse Pulse Resp BP BP Pulse Ox 12/09/18 15:52 97.2 F L 60 20 117/59 L 96 12/09/18 14:41 66 108/52 L 12/09/18 13:02 64 16 91 L 12/09/18 11:10 92 L 12/09/18 10:51 97.6 F 64 20 105/52 L 93 L 12/09/18 08:00 97.5 F L 12/09/18 07:10 109 H 18 98 Weight Admit Weight 298 lb 2 oz Weight 286 lb 6.4 oz Most Recent Monitor Data Heart Rate from ECG 66 NIBP 104/40 NIBP BP-Mean 61 Respiration from ECG 28 SpO2 93 I&O: 12/08/18 12/09/18 12/10/18 06:59 06:59 06:59 Intake Total 420 820 0 Output Total 0 0 Balance 420 820 0 Result Diagrams: 12/09/18 05:20 12/09/18 05:20 Additional Labs: Accuchecks 12/09/18 12/09/18 12/08/18 12:24 05:25 22:32 POC Glucose 82 82 80 12/08/18 17:25 POC Glucose 84 Phys Exam - Physical Examination Constitutional: NAD More interactive and appropriate Respiratory: no wheezing, no rales, no rhonchi Cardiovascular: no significant murmur, irregular Gastrointestinal: soft, non-tender, positive bowel sounds 2+ pitting edema BLE's. Left UE with resolving hematoma and ecchymosis. Neurological: non-focal Psychiatric: normal affect Skin: normal turgor Dx/Plan (1) Volume overload Code(s): E87.70 - FLUID OVERLOAD, UNSPECIFIED Status: Acute Comment: Secondary to ESRD, improving (2) ESRD needing dialysis Code(s): N18.6 - END STAGE RENAL DISEASE; Z99.2 - DEPENDENCE ON RENAL DIALYSIS Status: Acute Comment: HD catheter placement today, initiate HD per Renal service, outpt AV fistula placement (3) Gross hematuria Status: Acute Comment: Likely due to Cardozo catheter placement in conjunction with dual anti-platelet therapy, continue to monitor for improvement, hold ASA/ Plavix, consider Urology evaluation if no improvement in 24h (4) Anemia in CKD (chronic kidney disease) Code(s): N18.9 - CHRONIC KIDNEY DISEASE, UNSPECIFIED; D63.1 - ANEMIA IN CHRONIC KIDNEY DISEASE Status: Chronic Comment: Due to CKD, serial H/H monitoring (5) Chronic respiratory failure with hypoxia Code(s): J96.11 - CHRONIC RESPIRATORY FAILURE WITH HYPOXIA Status: Chronic Comment: Continue O2 supplementation at home levels via NC (6) Diabetes mellitus type 2 in obese Code(s): E11.69 - TYPE 2 DIABETES MELLITUS WITH OTHER SPECIFIED COMPLICATION; E66.9 - OBESITY, UNSPECIFIED Status: Chronic Comment: Resume home insulin regiment with Lantus 20u BID, ISS, ADA (7) Hypertension Code(s): I10 - ESSENTIAL (PRIMARY) HYPERTENSION Status: Chronic (8) Hypotension Status: Acute Comment: Now weaned off of the pressors. (9) Acute metabolic encephalopathy Code(s): G93.41 - METABOLIC ENCEPHALOPATHY Status: Acute (10) CAD (coronary artery disease) Code(s): I25.10 - ATHSCL HEART DISEASE OF [place] CORONARY ARTERY W/O ANG PCTRS Status: Acute (11) Bradycardia Code(s): R00.1 - BRADYCARDIA, UNSPECIFIED Status: Acute (12) Afib Code(s): I48.91 - UNSPECIFIED ATRIAL FIBRILLATION Status: Acute (13) Acute on chronic diastolic (congestive) heart failure Code(s): I50.33 - ACUTE ON CHRONIC DIASTOLIC (CONGESTIVE) HEART FAILURE Status : Acute - Plan * Slowly resolving the huge amount of volume overload. * Dialysis is limited by the blood pressure and heart rate. * Now off pressors. * Continue dialysis. * Cards, Pulm, Nephrology following. * To have fistula placed.
[2018-12-09] MEDS: Amiodarone 200 MG TAB PO SCH (20:07)
[2018-12-09] MEDS: Atorvastatin Calcium 40 MG TAB PO SCH (20:07)
[2018-12-10 05:57] LABS: #Eosinphils 0.1 thou/uL (0.0-0.7); #Lymphocytes 0.7 thou/uL (1.20-3.40); #Monocytes 0.6 thou/uL (0.11-0.59); #Neutrophils 8.5 thou/uL (1.40-6.50); %Basophils 0.2 % (0.0-1.0); %Eosinophils 0.8 % (0.0-10.0); %Lymphocytes 7.1 % (21.0-51.0); %Monocytes 6.3 % (0.0-10.0); %Neutrophils 85.5 % (42.0-75.0); Hemoglobin 8.9 g/dL (12.0-16.0); Mean Corpuscular HGB CONC 30.7 g/dL (32.0-36.0); Mean Corpuscular Hemoglobin 30.4 pg (27.0-31.0); Mean Corpuscular Volume 98.9 fL (78.0-98.0); Platelet Count 122 thou/uL (130-400); RBC Distribution Width 17.2 % (11.5-14.5); Red Blood Cell (RBC) Count 2.92 mill/uL (4.20-5.40); White Blood Cell (WBC) Count 9.9 thou/uL (4.8-10.8)
[2018-12-10 06:18] LABS: Anion Gap 16 mmol/L (10-20); BUN (Urea Nitrogen) 30 mg/dL (9.8-20.1); Calc. Creatinine Clearance 29 mL/min (70-130); Calcium 9.7 mg/dL (7.8-10.44); Carbon Dioxide 25 mmol/L (23-31); Chloride 99 mmol/L (98-107); Estimated GFR-MDRD 16; Glucose 116 mg/dL (83-110); Potassium 4.3 mmol/L (3.5-5.1); Sodium 136 mmol/L (136-145)
[2018-12-10] MEDS: Mometasone/Formoterol 120 PUFF INHALER INH SCH ×2 (06:53→19:31)
[2018-12-10] MEDS: Heparin 5,000 UNITS/ML VIAL SC SCH ×2 (09:06→20:24)
[2018-12-10] MEDS: Polyvinyl Alcohol 1.4%/Povidone 0.6% Opth Drops EA EYE SCH ×4 (09:06→20:24)
[2018-12-10] MEDS: Aspirin 81 mg Enteric Coated Tablet PO SCH (12:28)
[2018-12-10] MEDS: Amiodarone 200 MG TAB PO SCH ×2 (12:28→20:23)
[2018-12-10] MEDS: Famotidine/PF 20 mg/2ml Vial SLOW IVP SCH (12:28)
[2018-12-10] MEDS: Senokot S 8.6-50 MG TAB PO SCH ×2 (12:28→20:25)
[2018-12-10] MEDS: Allopurinol 100 MG TAB PO SCH (12:28)
[2018-12-10] MEDS: Liothyronine Sodium 5 MCG TAB PO SCH (12:28)
--- NOTE | 2018-12-10 16:17 | PRG ---
DATE OF SERVICE: 12/10/2018 SERVICE: Pulmonary Medicine. INTERVAL HISTORY: The patient is doing fine from respiratory standpoint. She is having mentation issues. She is waxing and waning consciousness. She goes from being perfectly alert and conversive to being confused. Occasionally, she is sedated, and another time, she is little bit more agitated. PHYSICAL EXAMINATION: VITAL SIGNS: Afebrile. Pulse 78, blood pressure 129/61, respirations 18, and saturation 94% on 4 L nasal cannula. GENERAL: The patient is awake and alert, in no apparent distress. LUNGS: Decent air entry. Crackles are present. No prolonged expiratory phase or wheezing is appreciated. HEART: Normal rate, regular. ABDOMEN: Soft, nontender, nondistended. Bowel sounds are positive. MUSCULOSKELETAL: No cyanosis or clubbing. There is 2 to 3+ pitting in the bilateral lower extremities. NEUROLOGIC: Grossly nonfocal. LABORATORY DATA: WBC 9.9, hemoglobin 8.9, platelets 122,000. Creatinine 2.88. Basic metabolic profile is otherwise unremarkable. ASSESSMENT: 1. Acute hypoxic respiratory failure. 2. End-stage renal disease. 3. Acute on chronic systolic and diastolic heart failure. 4. Obstructive sleep apnea. 5. Chronic obstructive pulmonary disease. DISCUSSION AND PLAN: The patient is doing fine from respiratory standpoint. She is breathing comfortably. Pulmonary/Critical Care will continue to follow along. We will continue our efforts at mobilizing the patient through time. Agree with deescalate exam and centrally acting medications. Job ID: [id number]
[2018-12-10] MEDS: Clopidogrel Bisulfate 75 MG TAB PO SCH (17:16)
--- NOTE | 2018-12-10 18:03 | PDOC.PN ---
- Subjective Encounter Start Date: 12/10/18 Encounter Start Time: 13:00 Subjective: pt up in bed no complains, Family updated on pt's condition - Objective Resuscitation Status - Order Detail: 12/08/18 13:39 Resuscitation Status Routine Resuscitation Status: DNAR: NO Resuscitation Discussed with: confirmed with pt, as well as her new MPOA her brother Floyd Vital Signs & Weight: Vital Signs (12 hours) Temp Pulse Resp BP Pulse Ox 12/10/18 15:47 97.4 F L 65 19 117/56 L 95 12/10/18 14:03 79 16 92 L 12/10/18 12:19 97.5 F L 70 18 129/61 94 L 12/10/18 07:30 96.9 F L 72 20 133/64 92 L 12/10/18 06:56 91 L 12/10/18 06:54 78 16 91 L 12/10/18 06:53 78 16 91 L Weight Admit Weight 298 lb 2 oz Weight 280 lb 14.4 oz Most Recent Monitor Data Heart Rate from ECG 66 NIBP 104/40 NIBP BP-Mean 61 Respiration from ECG 28 SpO2 93 I&O: 12/09/18 12/10/18 12/11/18 06:59 06:59 06:59 Intake Total 820 120 Output Total 0 Balance 820 120 Result Diagrams: 12/10/18 05:34 12/10/18 05:34 Additional Labs: Accuchecks 12/10/18 12/10/18 12/09/18 10:47 05:27 20:13 POC Glucose 98 116 H 118 H Phys Exam - Physical Examination Neck: no nodes, no JVD, supple, full ROM Respiratory: no wheezing, no rales, no rhonchi, wheezing present, clear to auscultation bilateral Cardiovascular: RRR, no significant murmur, no rub, gallop, irregular Gastrointestinal: soft, non-tender, no distention, positive bowel sounds Dx/Plan (1) Acute metabolic encephalopathy Code(s): G93.41 - METABOLIC ENCEPHALOPATHY Status: Acute (2) Bradycardia Code(s): R00.1 - BRADYCARDIA, UNSPECIFIED Status: Acute (3) ESRD needing dialysis Code(s): N18.6 - END STAGE RENAL DISEASE; Z99.2 - DEPENDENCE ON RENAL DIALYSIS Status: Acute Comment: HD catheter placement today, initiate HD per Renal service, outpt AV fistula placement (4) Volume overload Code(s): E87.70 - FLUID OVERLOAD, UNSPECIFIED Status: Acute Comment: Secondary to ESRD, improving (5) Anemia in CKD (chronic kidney disease) Code(s): N18.9 - CHRONIC KIDNEY DISEASE, UNSPECIFIED; D63.1 - ANEMIA IN CHRONIC KIDNEY DISEASE Status: Chronic Comment: Due to CKD, serial H/H monitoring (6) Diabetes mellitus type 2 in obese Code(s): E11.69 - TYPE 2 DIABETES MELLITUS WITH OTHER SPECIFIED COMPLICATION; E66.9 - OBESITY, UNSPECIFIED Status: Chronic Comment: Resume home insulin regiment with Lantus 20u BID, ISS, ADA (7) Delirium Code(s): R41.0 - DISORIENTATION, UNSPECIFIED Status: Acute - Plan will decrese her seroquel to 12.5mg bid -: pt does not want her to use xanax any more will discontinue -: pt medically stable, will work on rehab for pt. * . Review of Systems - Review of Systems Cardiovascular: negative: chest pain, palpitations, orthopnea, paroxysmal nocturnal dyspnea, edema, light headedness, other Gastrointestinal: negative: Nausea, Vomiting, Abdominal Pain, Diarrhea, Constipation, Melena, Hematochezia, Other Genitourinary: negative: Dysuria, Frequency, Incontinence, Hematuria, Retention , Other - Medications/Allergies Allergies/Adverse Reactions: Allergies Allergy/AdvReac Type Severity Reaction Status Date / Time adhesive Allergy Verified 11/29/18 18:21 Medications: Current Medications Acetaminophen (Tylenol) 650 mg PO Q4H PRN PRN Reason: Headache/Fever/Mild Pain (1-3) Last Admin: 12/08/18 15:37 Dose: 650 mg Albuterol/Ipratropium (Duoneb) 3 ml NEB [id number] [facility] Last Admin: 12/10/18 14:03 Dose: 3 ml Allopurinol (Zyloprim) 100 mg PO DAILY [facility] Last Admin: 12/10/18 12:28 Dose: 100 mg Alprazolam (Xanax) 0.5 mg PO TIDPRN PRN PRN Reason: Restlessness Last Admin: 12/08/18 21:54 Dose: 0.5 mg Amiodarone HCl (Cordarone) 400 mg PO BID [facility] Last Admin: 12/10/18 12:28 Dose: 400 mg Aspirin (Ecotrin) 81 mg PO DAILY [facility] Last Admin: 12/10/18 12:28 Dose: 81 mg Atorvastatin Calcium (Lipitor) 40 mg PO HS [facility] Last Admin: 12/09/18 20:07 Dose: 40 mg Clopidogrel Bisulfate (Plavix) 75 mg PO DAILY@1800 [facility] Last Admin: 12/10/18 17:16 Dose: 75 mg Dextrose/Water (Dextrose 50%) 25 gm SLOW IVP PRN PRN PRN Reason: Hypoglycemia Last Admin: 12/03/18 07:55 Dose: 25 gm Famotidine (Pepcid) 20 mg SLOW IVP DAILY [facility] Last Admin: 12/10/18 12:28 Dose: Not Given Glucagon (Glucagon) 1 mg IM PRN PRN PRN Reason: Hypoglycemia Heparin Sodium (Porcine) (Heparin) 5,000 units SC BID [facility] Last Admin: 12/10/18 09:06 Dose: Not Given Dextrose/Water (D5w) 1,000 mls @ 0 mls/hr IV .Q0M PRN PRN Reason: Hypoglycemia Norepinephrine Bitartrate 8 mg (/ Dextrose/Water) 258 mls @ 0 mls/hr IVPB INF PRN PRN Reason: Blood Pressure Cefazolin Sodium/Dextrose 2 gm (/ Device) 50 mls @ 100 mls/hr IVPB ONCALL-OR VINCEN[place] Cefazolin Sodium/Dextrose 2 gm (/ Device) 50 mls @ 100 mls/hr IVPB ONCALL-OR [place] Insulin Human Lispro (Humalog) 0 units SC .MILD SLIDING SCALE PRN PRN Reason: Mild Correctional Scale Last Admin: 12/02/18 17:56 Dose: 4 unit Insulin Human Lispro (Humalog) 0 units SC .BEDTIME SLIDING SC PRN PRN Reason: Bedtime Correctional Scale Liothyronine Sodium (Cytomel) 5 mcg PO DAILY [facility] Last Admin: 12/10/18 12:28 Dose: 5 mcg Mometasone Furoate/Formoterol Fumar (Dulera 100 Mcg/5 Mcg Inhaler) 2 puff INH BID-RT [facility] Last Admin: 12/10/18 06:53 Dose: 2 puff Ondansetron HCl (Zofran Odt) 4 mg PO Q6H PRN PRN Reason: Nausea/Vomiting Ondansetron HCl (Zofran) 4 mg IVP Q6H PRN PRN Reason: Nausea/Vomiting Polyvinyl Alcohol/Povidone (Refresh Classic Eye Drops) 1 each EA EYE QID [facility] Last Admin: 12/10/18 16:19 Dose: Not Given Propylene Glycol (Systane Opth Drop 15ml Bot) 2 drop EA EYE Q4H PRN PRN Reason: Dry Eyes Quetiapine Fumarate (Seroquel) 12.5 mg PO BID [facility] Senna/Docusate Sodium (Senokot S) 1 tab PO BID [facility] Last Admin: 12/10/18 12:28 Dose: 1 tab Sodium Chloride (Flush - Normal Saline) 10 ml IVF Q12HR [facility] Last Admin: 12/10/18 12:40 Dose: 10 ml Sodium Chloride (Flush - Normal Saline) 10 ml IVF PRN PRN PRN Reason: Saline Flush Sodium Chloride (Flush - Normal Saline) 10 ml IVF PRN PRN PRN Reason: Saline Flush
[2018-12-10] MEDS: Atorvastatin Calcium 40 MG TAB PO SCH ×2 (20:23→20:24)
[2018-12-11 04:15] LABS: #Eosinphils 0.1 thou/uL (0.0-0.7); #Lymphocytes 0.6 thou/uL (1.20-3.40); #Monocytes 0.9 thou/uL (0.11-0.59); #Neutrophils 7.3 thou/uL (1.40-6.50); %Basophils 0.2 % (0.0-1.0); %Eosinophils 1.2 % (0.0-10.0); %Lymphocytes 6.9 % (21.0-51.0); %Neutrophils 81.7 % (42.0-75.0); Hemoglobin 8.2 g/dL (12.0-16.0); Mean Corpuscular HGB CONC 30.7 g/dL (32.0-36.0); Mean Corpuscular Hemoglobin 30.5 pg (27.0-31.0); Mean Corpuscular Volume 99.4 fL (78.0-98.0); Mean Platelet Volume 9.3 fL (7.4-10.4); Platelet Count 131 thou/uL (130-400); RBC Distribution Width 17.7 % (11.5-14.5); Red Blood Cell (RBC) Count 2.69 mill/uL (4.20-5.40); White Blood Cell (WBC) Count 8.9 thou/uL (4.8-10.8)
[2018-12-11 04:32] LABS: Anion Gap 13 mmol/L (10-20); BUN (Urea Nitrogen) 18 mg/dL (9.8-20.1); Calc. Creatinine Clearance 39 mL/min (70-130); Calcium 9.5 mg/dL (7.8-10.44); Carbon Dioxide 29 mmol/L (23-31); Chloride 100 mmol/L (98-107); Estimated GFR-MDRD 22; Glucose 112 mg/dL (83-110); Potassium 4.3 mmol/L (3.5-5.1); Sodium 138 mmol/L (136-145)
[2018-12-11] MEDS: Mometasone/Formoterol 120 PUFF INHALER INH SCH ×2 (06:57→19:42)
[2018-12-11] MEDS: Aspirin 81 mg Enteric Coated Tablet PO SCH (09:50)
[2018-12-11] MEDS: Liothyronine Sodium 5 MCG TAB PO SCH (09:50)
[2018-12-11] MEDS: Amiodarone 200 MG TAB PO SCH ×2 (09:50→21:17)
[2018-12-11] MEDS: Allopurinol 100 MG TAB PO SCH (09:50)
[2018-12-11] MEDS: Senokot S 8.6-50 MG TAB PO SCH ×2 (09:51→21:18)
[2018-12-11] MEDS: Heparin 5,000 UNITS/ML VIAL SC SCH ×2 (09:51→21:17)
[2018-12-11] MEDS: Famotidine/PF 20 mg/2ml Vial SLOW IVP SCH (09:51)
[2018-12-11] MEDS: Polyvinyl Alcohol 1.4%/Povidone 0.6% Opth Drops EA EYE SCH ×4 (09:51→21:18)
[2018-12-11] MEDS ORDERED: Heparin 1,000 UNITS/ML VIAL ONE (11:11)
--- NOTE | 2018-12-11 14:59 | PRG ---
DATE OF SERVICE: 12/11/2018 SERVICE: Pulmonary Medicine. INTERVAL HISTORY: The patient is doing fine from breathing standpoint. She remains on 1 L nasal cannula. She denies any current chest pain, fevers, cough, nausea , or vomiting. She had some confusion last night. She is having mentation issues that wax and wane. She is intermittently agitated, is picking at lines and tubes. That being said, she is fully conversive. She indicates that she is not having any chest discomfort or difficulty breathing and she is talking in full sentences. PHYSICAL EXAMINATION: VITAL SIGNS: Afebrile, pulse 64, blood pressure 161/66, respirations 19, saturation 92% on 4 L nasal cannula. GENERAL: The patient is awake and alert, in no apparent distress. LUNGS: Decent air entry is present. Crackles are present dependently. HEART: Normal rate, regular. ABDOMEN: Soft, nontender, nondistended. Bowel sounds are positive. MUSCULOSKELETAL: No cyanosis or clubbing. There is 2 to 3+ pitting in the bilateral lower extremities. NEUROLOGIC: Grossly nonfocal. LABORATORY DATA: WBC 8.9, hemoglobin 8.2, platelets 131,000 and rebounding. Creatinine 2.16 and downtrending. ASSESSMENT: 1. Acute hypoxic respiratory failure. 2. End-stage renal disease. 3. Acute on chronic systolic and diastolic heart failure. 4. Obstructive sleep apnea. 5. Chronic obstructive pulmonary disease. 6. Delirium. DISCUSSION AND PLAN: The patient is doing fine from respiratory standpoint. She is tolerating dialysis and fluid removal. I will continue our efforts at mobilizing the patient through time. Dr. Croft will assume care in the morning. Job ID: [id number] [facility]
--- NOTE | 2018-12-11 15:23 | PDOC.PN ---
- Subjective Encounter Start Date: 12/11/18 Encounter Start Time: 10:00 Subjective: pt up in bed oriented x2s -: he did require a sitter last night - Objective Resuscitation Status - Order Detail: 12/08/18 13:39 Resuscitation Status Routine Resuscitation Status: DNAR: NO Resuscitation Discussed with: confirmed with pt, as well as her new MPOA her brother Floyd Vital Signs & Weight: Vital Signs (12 hours) Temp Pulse Resp BP Pulse Ox 12/11/18 07:35 97.7 F 64 19 161/66 H 92 L 12/11/18 07:01 95 12/11/18 07:00 64 20 95 12/11/18 06:57 64 20 94 L 12/11/18 03:53 97.4 F L 67 20 127/58 L 92 L Weight Admit Weight 298 lb 2 oz Weight 275 lb 3.2 oz Most Recent Monitor Data Heart Rate from ECG 66 NIBP 104/40 NIBP BP-Mean 61 Respiration from ECG 28 SpO2 93 I&O: 12/10/18 12/11/18 12/12/18 06:59 06:59 06:59 Intake Total 120 300 Output Total 1600 Balance 120 -1300 Result Diagrams: 12/11/18 03:46 12/11/18 03:46 Additional Labs: Accuchecks 12/11/18 12/11/18 12/10/18 11:03 05:15 20:28 POC Glucose 160 H 106 147 H 12/10/18 17:02 POC Glucose 115 H Phys Exam - Physical Examination HEENT: PERRLA, moist MMs, sclera anicteric, TM's clear, oral pharynx no lesions , 2+ tonsils Neck: no nodes, no JVD, supple, full ROM Respiratory: no wheezing, no rales, no rhonchi, wheezing present, clear to auscultation bilateral Cardiovascular: RRR, no significant murmur, no rub, gallop, irregular Dx/Plan (1) Acute metabolic encephalopathy Code(s): G93.41 - METABOLIC ENCEPHALOPATHY Status: Acute (2) Bradycardia Code(s): R00.1 - BRADYCARDIA, UNSPECIFIED Status: Acute (3) ESRD needing dialysis Code(s): N18.6 - END STAGE RENAL DISEASE; Z99.2 - DEPENDENCE ON RENAL DIALYSIS Status: Acute Comment: HD catheter placement today, initiate HD per Renal service, outpt AV fistula placement (4) Volume overload Code(s): E87.70 - FLUID OVERLOAD, UNSPECIFIED Status: Acute Comment: Secondary to ESRD, improving (5) Anemia in CKD (chronic kidney disease) Code(s): N18.9 - CHRONIC KIDNEY DISEASE, UNSPECIFIED; D63.1 - ANEMIA IN CHRONIC KIDNEY DISEASE Status: Chronic Comment: Due to CKD, serial H/H monitoring (6) Diabetes mellitus type 2 in obese Code(s): E11.69 - TYPE 2 DIABETES MELLITUS WITH OTHER SPECIFIED COMPLICATION; E66.9 - OBESITY, UNSPECIFIED Status: Chronic Comment: Resume home insulin regiment with Lantus 20u BID, ISS, ADA - Plan Her mentation is improving -: she will need snf vs rehab -: she is on dialysis * . Review of Systems - Review of Systems Respiratory: negative: Cough, Dry, Shortness of Breath, Hemoptysis, SOB with Excertion, Pleuritic Pain, Sputum, Wheezing Cardiovascular: negative: chest pain, palpitations, orthopnea, paroxysmal nocturnal dyspnea, edema, light headedness, other - Medications/Allergies Allergies/Adverse Reactions: Allergies Allergy/AdvReac Type Severity Reaction Status Date / Time adhesive Allergy Verified 11/29/18 18:21 Medications: Current Medications Acetaminophen (Tylenol) 650 mg PO Q4H PRN PRN Reason: Headache/Fever/Mild Pain (1-3) Last Admin: 12/08/18 15:37 Dose: 650 mg Albuterol/Ipratropium (Duoneb) 3 ml NEB [id number] [facility] Last Admin: 12/11/18 12:10 Dose: Not Given Allopurinol (Zyloprim) 100 mg PO DAILY [facility] Last Admin: 12/11/18 09:50 Dose: 100 mg Amiodarone HCl (Cordarone) 400 mg PO BID [facility] Last Admin: 12/11/18 09:50 Dose: 400 mg Aspirin (Ecotrin) 81 mg PO DAILY [facility] Last Admin: 12/11/18 09:50 Dose: 81 mg Atorvastatin Calcium (Lipitor) 40 mg PO HS [facility] Last Admin: 12/10/18 20:24 Dose: 40 mg Clopidogrel Bisulfate (Plavix) 75 mg PO DAILY@1800 [facility] Last Admin: 12/10/18 17:16 Dose: 75 mg Dextrose/Water (Dextrose 50%) 25 gm SLOW IVP PRN PRN PRN Reason: Hypoglycemia Last Admin: 12/03/18 07:55 Dose: 25 gm Famotidine (Pepcid) 20 mg SLOW IVP DAILY [facility] Last Admin: 12/11/18 09:51 Dose: 20 mg Glucagon (Glucagon) 1 mg IM PRN PRN PRN Reason: Hypoglycemia Heparin Sodium (Porcine) (Heparin) 5,000 units SC BID [facility] Last Admin: 12/11/18 09:51 Dose: 5,000 units Dextrose/Water (D5w) 1,000 mls @ 0 mls/hr IV .Q0M PRN PRN Reason: Hypoglycemia Norepinephrine Bitartrate 8 mg (/ Dextrose/Water) 258 mls @ 0 mls/hr IVPB INF PRN PRN Reason: Blood Pressure Cefazolin Sodium/Dextrose 2 gm (/ Device) 50 mls @ 100 mls/hr IVPB ONCALL-OR VINCENZO Cefazolin Sodium/Dextrose 2 gm (/ Device) 50 mls @ 100 mls/hr IVPB ONCALL-OR [facility] Insulin Human Lispro (Humalog) 0 units SC .MILD SLIDING SCALE PRN PRN Reason: Mild Correctional Scale Last Admin: 12/02/18 17:56 Dose: 4 unit Insulin Human Lispro (Humalog) 0 units SC .BEDTIME SLIDING SC PRN PRN Reason: Bedtime Correctional Scale Liothyronine Sodium (Cytomel) 5 mcg PO DAILY [facility] Last Admin: 12/11/18 09:50 Dose: 5 mcg Mometasone Furoate/Formoterol Fumar (Dulera 100 Mcg/5 Mcg Inhaler) 2 puff INH BID-RT [facility] Last Admin: 12/11/18 06:57 Dose: 2 puff Ondansetron HCl (Zofran Odt) 4 mg PO Q6H PRN PRN Reason: Nausea/Vomiting Ondansetron HCl (Zofran) 4 mg IVP Q6H PRN PRN Reason: Nausea/Vomiting Polyvinyl Alcohol/Povidone (Refresh Classic Eye Drops) 1 each EA EYE QID [facility] Last Admin: 12/11/18 13:57 Dose: Not Given Propylene Glycol (Systane Opth Drop 15ml Bot) 2 drop EA EYE Q4H PRN PRN Reason: Dry Eyes Quetiapine Fumarate (Seroquel) 12.5 mg PO BID [facility] Last Admin: 12/11/18 09:50 Dose: 12.5 mg Senna/Docusate Sodium (Senokot S) 1 tab PO BID [facility] Last Admin: 12/11/18 09:51 Dose: 1 tab Sodium Chloride (Flush - Normal Saline) 10 ml IVF Q12HR [facility] Last Admin: 12/11/18 09:51 Dose: 10 ml Sodium Chloride (Flush - Normal Saline) 10 ml IVF PRN PRN PRN Reason: Saline Flush Sodium Chloride (Flush - Normal Saline) 10 ml IVF PRN PRN PRN Reason: Saline Flush
[2018-12-11] MEDS: Clopidogrel Bisulfate 75 MG TAB PO SCH (18:29)
[2018-12-12] MEDS: Mometasone/Formoterol 120 PUFF INHALER INH SCH ×2 (07:06→19:00)
[2018-12-12] MEDS ORDERED: Heparin 5,000 UNITS/ML VIAL ONE (10:01)
[2018-12-12] MEDS ORDERED: Protamine Sulfate 50 MG/5 ML VIAL ONE (10:01)
[2018-12-12] MEDS ORDERED: Fentanyl 100 MCG/2 ML VIAL ONE (10:02)
[2018-12-12] MEDS ORDERED: Propofol 500 MG/50 ML VIAL ONE (10:02)
[2018-12-12] MEDS ORDERED: traMADol HCl 50 MG TAB PO PRN (10:04)
[2018-12-12] MEDS ORDERED: Bupivacaine HCl 0.5%/Epinephrine 1:200,000/PF 30 ml Vial ONE (10:05)
[2018-12-12] MEDS ORDERED: Phenylephrine HCL 10 MG/ML VIAL ONE (10:14)
[2018-12-12] MEDS ORDERED: Rocuronium Bromide 10 MG/ML (10ML VIAL) ONE (11:11)
[2018-12-12] MEDS ORDERED: PROPOFOL 200 MG/20 ML VIAL ONE (11:11)
[2018-12-12] MEDS ORDERED: Lidocaine 1% PF 5 ML VIAL ONE (11:11)
[2018-12-12] MEDS ORDERED: PHENYLEPHRINE-NS 100 MCG/ML 10 ML SYRINGE ONE (11:11)
[2018-12-12 13:12] LABS: #Eosinphils 0.2 thou/uL (0.0-0.7); #Lymphocytes 0.9 thou/uL (1.20-3.40); #Monocytes 0.7 thou/uL (0.11-0.59); #Neutrophils 8.1 thou/uL (1.40-6.50); %Basophils 0.2 % (0.0-1.0); %Eosinophils 1.6 % (0.0-10.0); %Lymphocytes 9.3 % (21.0-51.0); %Monocytes 7.1 % (0.0-10.0); %Neutrophils 81.8 % (42.0-75.0); Hemoglobin 8.6 g/dL (12.0-16.0); Mean Corpuscular HGB CONC 30.7 g/dL (32.0-36.0); Mean Corpuscular Hemoglobin 30.5 pg (27.0-31.0); Mean Corpuscular Volume 99.3 fL (78.0-98.0); Mean Platelet Volume 9.1 fL (7.4-10.4); Platelet Count 181 thou/uL (130-400); RBC Distribution Width 17.8 % (11.5-14.5); White Blood Cell (WBC) Count 9.9 thou/uL (4.8-10.8)
--- NOTE | 2018-12-12 13:13 | OP ---
DATE OF PROCEDURE: 12/12/2018 PREOPERATIVE DIAGNOSES: 1. End-stage renal disease. 2. Morbid obesity. POSTOPERATIVE DIAGNOSES: 1. End-stage renal disease. 2. Morbid obesity. PROCEDURE PERFORMED: Left Mary Lou fistula, cephalic vein outflow calibrated with 3.5 mm coronary dilator, large branch ligated on the lateral side to arterialize the main cephalic vein. ANESTHESIA: General anesthesia, local 0.5% Marcaine with epinephrine 10 mL. DESCRIPTION OF PROCEDURE: The patient was taken to the operating room. Under general anesthesia, left upper extremity was prepared with ChloraPrep and draped in routine fashion. Incision was made between the cephalic vein and radial artery, carried down to skin and subcutaneous tissue, and cephalic vein seemed to be adequate size. The patient was given 6000 units of heparin intravenously. After adequate circulation time, the radial artery and cephalic vein were dissected free. Cephalic vein stump on the hand side doubly clipped and spatulated and interrogated with coronary dilators, placing coronary dilators from 2 mm to 3.5 mm coronary dilators, unobstructed. A larger branch located laterally, was ligated with a 4-0 silk suture. Vascular clamps were placed on the radial artery. A longitudinal arteriotomy was made sharply, elongated with Fernández scissors and the end vein to side radial anastomosis was accomplished with continuous suture of 6-0 Prolene. After completing the anastomosis/clamps released, there was good flow in the fistula, evident by Doppler interrogation. The patient was given 25 mg of protamine intravenously. Subcutaneous tissue was approximated with 3-0 Monocryl, skin with subdermal 4-0 Monocryl, and Temelec glue applied. The patient tolerated the procedure well. Job ID: [id number]
[2018-12-12 13:22] LABS: Anion Gap 15 mmol/L (10-20); BUN (Urea Nitrogen) 17 mg/dL (9.8-20.1); Calc. Creatinine Clearance 39 mL/min (70-130); Carbon Dioxide 25 mmol/L (23-31); Chloride 101 mmol/L (98-107); Estimated GFR-MDRD 23; Glucose 112 mg/dL (83-110); Potassium 4.7 mmol/L (3.5-5.1); Sodium 136 mmol/L (136-145)
[2018-12-12] MEDS: Allopurinol 100 MG TAB PO SCH (16:13)
[2018-12-12] MEDS: Heparin 5,000 UNITS/ML VIAL SC SCH ×2 (16:13→21:22)
[2018-12-12] MEDS: Amiodarone 200 MG TAB PO SCH ×2 (16:13→21:21)
[2018-12-12] MEDS: Aspirin 81 mg Enteric Coated Tablet PO SCH (16:13)
[2018-12-12] MEDS: Polyvinyl Alcohol 1.4%/Povidone 0.6% Opth Drops EA EYE SCH ×2 (16:14→21:21)
[2018-12-12] MEDS: Senokot S 8.6-50 MG TAB PO SCH ×2 (16:14→21:20)
[2018-12-12] MEDS: Liothyronine Sodium 5 MCG TAB PO SCH (16:14)
[2018-12-12] MEDS: Famotidine/PF 20 mg/2ml Vial SLOW IVP SCH (16:16)
--- NOTE | 2018-12-12 16:49 | PRG ---
DATE OF SERVICE: 12/12/2018 SUBJECTIVE: Post-access procedure, she is still lethargic. Apparently, she was placed on a BiPAP in the PAC unit postprocedure. OBJECTIVE: VITAL SIGNS: Saturations 96% on 4 L, temperature 97, _bp 134/73 respiratory rate 18. GENERAL: She is more awake. CHEST: Decreased breath sounds. No wheezing. CARDIAC: Normal S1 and S2. No gallops. ABDOMEN: No masses. LABORATORY DATA: Creatinine is 2.8. White count 9000, H and H 8 and 26. IMPRESSION: Acute on chronic respiratory failure, morbid obesity, renal failure , severe deconditioning, sleep apnea, delirium. We will cut back on the Seroquel to just at nighttime. Continue supportive care , PT. We will minimize sedation. Job ID: [id number] [facility]
[2018-12-12] MEDS: Clopidogrel Bisulfate 75 MG TAB PO SCH (17:45)
--- NOTE | 2018-12-12 18:04 | PDOC.PN ---
- Subjective Encounter Start Date: 12/12/18 Encounter Start Time: 15:30 Subjective: pt just came back from surgery - Objective Resuscitation Status - Order Detail: 12/08/18 13:39 Resuscitation Status Routine Resuscitation Status: DNAR: NO Resuscitation Discussed with: confirmed with pt, as well as her new MPOA her brother Floyd Vital Signs & Weight: Vital Signs (12 hours) Temp Pulse Resp BP Pulse Ox 12/12/18 15:35 97.9 F 64 20 125/70 96 12/12/18 13:03 62 12/12/18 08:00 96 12/12/18 07:20 97.4 F L 70 24 H 125/76 96 12/12/18 06:52 70 20 Weight Admit Weight 298 lb 2 oz Weight 273 lb 4.8 oz Most Recent Monitor Data Heart Rate from ECG 66 NIBP 104/40 NIBP BP-Mean 61 Respiration from ECG 28 SpO2 93 I&O: 12/11/18 12/12/18 12/13/18 06:59 06:59 06:59 Intake Total 300 440 Output Total 1600 Balance -1300 440 Result Diagrams: 12/12/18 12:57 12/12/18 12:57 Additional Labs: Accuchecks 12/12/18 12/11/18 05:39 20:17 POC Glucose 103 133 H Phys Exam - Physical Examination Neck: no nodes, no JVD, supple, full ROM Respiratory: no wheezing, no rales, no rhonchi, wheezing present, clear to auscultation bilateral Cardiovascular: RRR, no significant murmur, no rub, gallop, irregular Gastrointestinal: soft, non-tender, no distention, positive bowel sounds Dx/Plan (1) Acute metabolic encephalopathy Code(s): G93.41 - METABOLIC ENCEPHALOPATHY Status: Acute (2) Bradycardia Code(s): R00.1 - BRADYCARDIA, UNSPECIFIED Status: Acute (3) ESRD needing dialysis Code(s): N18.6 - END STAGE RENAL DISEASE; Z99.2 - DEPENDENCE ON RENAL DIALYSIS Status: Acute Comment: HD catheter placement today, initiate HD per Renal service, outpt AV fistula placement (4) Volume overload Code(s): E87.70 - FLUID OVERLOAD, UNSPECIFIED Status: Acute Comment: Secondary to ESRD, improving (5) Anemia in CKD (chronic kidney disease) Code(s): N18.9 - CHRONIC KIDNEY DISEASE, UNSPECIFIED; D63.1 - ANEMIA IN CHRONIC KIDNEY DISEASE Status: Chronic Comment: Due to CKD, serial H/H monitoring (6) Diabetes mellitus type 2 in obese Code(s): E11.69 - TYPE 2 DIABETES MELLITUS WITH OTHER SPECIFIED COMPLICATION; E66.9 - OBESITY, UNSPECIFIED Status: Chronic Comment: Resume home insulin regiment with Lantus 20u BID, ISS, ADA - Plan pt having ?vaginal bleed, unable to visualize bleed -: will get vaginal ultrasound. she does not have a previous UA * . Review of Systems - Review of Systems Respiratory: negative: Cough, Dry, Shortness of Breath, Hemoptysis, SOB with Excertion, Pleuritic Pain, Sputum, Wheezing Cardiovascular: negative: chest pain, palpitations, orthopnea, paroxysmal nocturnal dyspnea, edema, light headedness, other Gastrointestinal: negative: Nausea, Vomiting, Abdominal Pain, Diarrhea, Constipation, Melena, Hematochezia, Other - Medications/Allergies Allergies/Adverse Reactions: Allergies Allergy/AdvReac Type Severity Reaction Status Date / Time adhesive Allergy Verified 11/29/18 18:21 Medications: Current Medications Acetaminophen (Tylenol) 1,000 mg PO Q6H PRN PRN Reason: Moderate to Severe Pain (6-10) Albuterol/Ipratropium (Duoneb) 3 ml NEB [id number] [facility] Last Admin: 12/12/18 13:07 Dose: 3 ml Allopurinol (Zyloprim) 100 mg PO DAILY [facility] Last Admin: 12/12/18 16:13 Dose: Not Given Amiodarone HCl (Cordarone) 400 mg PO BID [facility] Last Admin: 12/12/18 16:13 Dose: Not Given Aspirin (Ecotrin) 81 mg PO DAILY [facility] Last Admin: 12/12/18 16:13 Dose: Not Given Atorvastatin Calcium (Lipitor) 40 mg PO HS [facility] Last Admin: 12/10/18 20:24 Dose: 40 mg Clopidogrel Bisulfate (Plavix) 75 mg PO DAILY@1800 [facility] Last Admin: 12/12/18 17:45 Dose: Not Given Dextrose/Water (Dextrose 50%) 25 gm SLOW IVP PRN PRN PRN Reason: Hypoglycemia Last Admin: 12/03/18 07:55 Dose: 25 gm Glucagon (Glucagon) 1 mg IM PRN PRN PRN Reason: Hypoglycemia Heparin Sodium (Porcine) (Heparin) 5,000 units SC BID [facility] Last Admin: 12/12/18 16:13 Dose: Not Given Dextrose/Water (D5w) 1,000 mls @ 0 mls/hr IV .Q0M PRN PRN Reason: Hypoglycemia Norepinephrine Bitartrate 8 mg (/ Dextrose/Water) 258 mls @ 0 mls/hr IVPB INF PRN PRN Reason: Blood Pressure Cefazolin Sodium/Dextrose 2 gm (/ Device) 50 mls @ 100 mls/hr IVPB ONCALL-OR [facility]INCEN[facility] Cefazolin Sodium/Dextrose 2 gm (/ Device) 50 mls @ 100 mls/hr IVPB ONCALL-OR [facility] Insulin Human Lispro (Humalog) 0 units SC .MILD SLIDING SCALE PRN PRN Reason: Mild Correctional Scale Last Admin: 12/02/18 17:56 Dose: 4 unit Insulin Human Lispro (Humalog) 0 units SC .BEDTIME SLIDING SC PRN PRN Reason: Bedtime Correctional Scale Liothyronine Sodium (Cytomel) 5 mcg PO DAILY [facility] Last Admin: 12/12/18 16:14 Dose: Not Given Mometasone Furoate/Formoterol Fumar (Dulera 100 Mcg/5 Mcg Inhaler) 2 puff INH BID-RT [facility] Last Admin: 12/12/18 07:06 Dose: 2 puff Ondansetron HCl (Zofran Odt) 4 mg PO Q6H PRN PRN Reason: Nausea/Vomiting Ondansetron HCl (Zofran) 4 mg IVP Q6H PRN PRN Reason: Nausea/Vomiting Polyvinyl Alcohol/Povidone (Refresh Classic Eye Drops) 1 each EA EYE QID [facility] Last Admin: 12/12/18 16:14 Dose: Not Given Propylene Glycol (Systane Opth Drop 15ml Bot) 2 drop EA EYE Q4H PRN PRN Reason: Dry Eyes Quetiapine Fumarate (Seroquel) 12.5 mg PO HS [facility] Senna/Docusate Sodium (Senokot S) 1 tab PO BID [facility] Last Admin: 12/12/18 16:14 Dose: Not Given Sodium Chloride (Flush - Normal Saline) 10 ml IVF Q12HR [facility] Last Admin: 12/12/18 16:14 Dose: Not Given Sodium Chloride (Flush - Normal Saline) 10 ml IVF PRN PRN PRN Reason: Saline Flush Sodium Chloride (Flush - Normal Saline) 10 ml IVF PRN PRN PRN Reason: Saline Flush Tramadol HCl (Ultram) 50 mg PO Q6H PRN PRN Reason: Pain
[2018-12-12] MEDS: Acetaminophen 500 MG TAB PO PRN (21:20)
[2018-12-12] MEDS: Atorvastatin Calcium 40 MG TAB PO SCH (21:21)
[2018-12-13] MEDS: Mometasone/Formoterol 120 PUFF INHALER INH SCH ×2 (07:59→18:26)
[2018-12-13] MEDS: Amiodarone 200 MG TAB PO SCH ×2 (08:50→21:14)
[2018-12-13] MEDS: Heparin 5,000 UNITS/ML VIAL SC SCH ×2 (08:51→21:14)
[2018-12-13] MEDS: Polyvinyl Alcohol 1.4%/Povidone 0.6% Opth Drops EA EYE SCH ×4 (08:51→21:15)
[2018-12-13] MEDS: Senokot S 8.6-50 MG TAB PO SCH ×2 (08:52→21:14)
[2018-12-13] MEDS: Liothyronine Sodium 5 MCG TAB PO SCH (09:30)
[2018-12-13] MEDS: Allopurinol 100 MG TAB PO SCH (09:30)
[2018-12-13] MEDS: Aspirin 81 mg Enteric Coated Tablet PO SCH (09:30)
--- NOTE | 2018-12-13 09:53 | PRG ---
DATE OF SERVICE: 12/13/2018 SUBJECTIVE: This morning, the patient is being dialyzed. She is sleepy, but arousable. Decreased her medications substantially. She is getting Seroquel 12.5 at nighttime for any previous insomnia. OBJECTIVE: VITAL SIGNS: Blood pressure is 131/62, sats are 98% on 3 L, respiratory rate 18, temperature 98, and pulse 57. CHEST: Bilateral rhonchi. CARDIAC: Normal S1, S2. No gallops. ABDOMEN: No masses. LABORATORY DATA: Creatinine is 2. ASSESSMENT: Morbid obesity, sleep apnea, severe deconditioning with congestive heart failure, renal failure. PLAN: Pulmonary west, eventually placement. She is do not resuscitation. PT. Avoid sedative medication. Job ID: [id number]
[2018-12-13] MEDS: Acetaminophen 500 MG TAB PO PRN (10:39)
[2018-12-13 10:56] LABS: Band 9 % (5-11); Eosinophils 4 % (0-10); Hemoglobin 7.8 g/dL (12.0-16.0); Hypochromia SLIGHT = 6-15 cells (100X) (0-5/hpf); Lymphocytes 7 % (21-51); MDiff Complete? YES; Macrocytosis SLIGHT = 6-15 cells (100X) (0-5/hpf); Mean Corpuscular Hemoglobin 30.1 pg (27.0-31.0); Mean Platelet Volume 9.2 fL (7.4-10.4); Monocytes 5 % (0-10); Neutrophil 75 % (42-75); Ovalocytes SLIGHT = 2-5 cells (100X) (0-1/hpf); Platelet Count 177 thou/uL (130-400); Platelet Morphology Comment Appears Adequate; Polychromasia MODERATE = 3-4 cells (100X) (0-2/hpf); RBC Distribution Width 17.8 % (11.5-14.5); Red Blood Cell (RBC) Count 2.58 mill/uL (4.20-5.40); White Blood Cell (WBC) Count 7.4 thou/uL (4.8-10.8)
[2018-12-13 13:51] VITALS: BMI 46.5
--- NOTE | 2018-12-13 14:50 | PDOC.PN ---
- Subjective Encounter Start Date: 12/13/18 Encounter Start Time: 13:00 Subjective: pt up in bed appears drowsy but arousable - Objective Resuscitation Status - Order Detail: 12/08/18 13:39 Resuscitation Status Routine Resuscitation Status: DNAR: NO Resuscitation Discussed with: confirmed with pt, as well as her new MPOA her brother Floyd Vital Signs & Weight: Vital Signs (12 hours) Temp Pulse Resp BP Pulse Ox 12/13/18 14:00 60 20 12/13/18 08:07 98.2 F 57 L 18 131/62 98 12/13/18 07:59 55 L 14 12/13/18 04:00 96.8 F L 60 19 149/67 H 95 Weight Admit Weight 298 lb 2 oz Weight 271 lb 3.2 oz Most Recent Monitor Data Heart Rate from ECG 66 NIBP 104/40 NIBP BP-Mean 61 Respiration from ECG 28 SpO2 93 I&O: 12/12/18 12/13/18 12/14/18 06:59 06:59 06:59 Intake Total 440 90 Balance 440 90 Result Diagrams: 12/13/18 09:12 12/12/18 12:57 Additional Labs: Accuchecks 12/13/18 12/13/18 12/12/18 11:07 05:38 20:12 POC Glucose 94 133 H 101 12/12/18 16:40 POC Glucose 104 Phys Exam - Physical Examination Neck: no nodes, no JVD, supple, full ROM Respiratory: no wheezing, no rales, no rhonchi, wheezing present, clear to auscultation bilateral Cardiovascular: RRR, no significant murmur, no rub, gallop, irregular Gastrointestinal: soft, non-tender, no distention, positive bowel sounds Musculoskeletal: edema present left hand swelling Dx/Plan (1) Acute metabolic encephalopathy Code(s): G93.41 - METABOLIC ENCEPHALOPATHY Status: Acute (2) Bradycardia Code(s): R00.1 - BRADYCARDIA, UNSPECIFIED Status: Acute (3) ESRD needing dialysis Code(s): N18.6 - END STAGE RENAL DISEASE; Z99.2 - DEPENDENCE ON RENAL DIALYSIS Status: Acute Comment: HD catheter placement today, initiate HD per Renal service, outpt AV fistula placement (4) Volume overload Code(s): E87.70 - FLUID OVERLOAD, UNSPECIFIED Status: Acute Comment: Secondary to ESRD, improving (5) Anemia in CKD (chronic kidney disease) Code(s): N18.9 - CHRONIC KIDNEY DISEASE, UNSPECIFIED; D63.1 - ANEMIA IN CHRONIC KIDNEY DISEASE Status: Chronic Comment: Due to CKD, serial H/H monitoring (6) Diabetes mellitus type 2 in obese Code(s): E11.69 - TYPE 2 DIABETES MELLITUS WITH OTHER SPECIFIED COMPLICATION; E66.9 - OBESITY, UNSPECIFIED Status: Chronic Comment: Resume home insulin regiment with Lantus 20u BID, ISS, ADA - Plan hh is low, her vaginal bleeding has stopped per nursing -: spoke with pt's POA who agreed to hold off on testing -: for now. will continue to monitor. pt has had a -: hystrectomy. will get renal ultrasound. * . Review of Systems - Review of Systems Respiratory: negative: Cough, Dry, Shortness of Breath, Hemoptysis, SOB with Excertion, Pleuritic Pain, Sputum, Wheezing Cardiovascular: negative: chest pain, palpitations, orthopnea, paroxysmal nocturnal dyspnea, edema, light headedness, other Gastrointestinal: negative: Nausea, Vomiting, Abdominal Pain, Diarrhea, Constipation, Melena, Hematochezia, Other - Medications/Allergies Allergies/Adverse Reactions: Allergies Allergy/AdvReac Type Severity Reaction Status Date / Time adhesive Allergy Verified 11/29/18 18:21 Medications: Current Medications Acetaminophen (Tylenol) 1,000 mg PO Q6H PRN PRN Reason: Moderate to Severe Pain (6-10) Last Admin: 12/13/18 10:39 Dose: 1,000 mg Albuterol/Ipratropium (Duoneb) 3 ml NEB [id number] [facility] Last Admin: 12/13/18 14:00 Dose: 3 ml Allopurinol (Zyloprim) 100 mg PO DAILY [facility] Last Admin: 12/12/18 16:13 Dose: Not Given Amiodarone HCl (Cordarone) 400 mg PO BID [facility] Last Admin: 12/13/18 08:50 Dose: Not Given Aspirin (Ecotrin) 81 mg PO DAILY [facility] Last Admin: 12/12/18 16:13 Dose: Not Given Atorvastatin Calcium (Lipitor) 40 mg PO HS [facility] Last Admin: 12/12/18 21:21 Dose: 40 mg Clopidogrel Bisulfate (Plavix) 75 mg PO DAILY@1800 [facility] Last Admin: 12/12/18 17:45 Dose: Not Given Dextrose/Water (Dextrose 50%) 25 gm SLOW IVP PRN PRN PRN Reason: Hypoglycemia Last Admin: 12/03/18 07:55 Dose: 25 gm Glucagon (Glucagon) 1 mg IM PRN PRN PRN Reason: Hypoglycemia Heparin Sodium (Porcine) (Heparin) 5,000 units SC BID [facility] Last Admin: 12/13/18 08:51 Dose: Not Given Dextrose/Water (D5w) 1,000 mls @ 0 mls/hr IV .Q0M PRN PRN Reason: Hypoglycemia Norepinephrine Bitartrate 8 mg (/ Dextrose/Water) 258 mls @ 0 mls/hr IVPB INF PRN PRN Reason: Blood Pressure Cefazolin Sodium/Dextrose 2 gm (/ Device) 50 mls @ 100 mls/hr IVPB ONCALL-OR [facility] Cefazolin Sodium/Dextrose 2 gm (/ Device) 50 mls @ 100 mls/hr IVPB ONCALL-OR [facility] Insulin Human Lispro (Humalog) 0 units SC .MILD SLIDING SCALE PRN PRN Reason: Mild Correctional Scale Last Admin: 12/02/18 17:56 Dose: 4 unit Insulin Human Lispro (Humalog) 0 units SC .BEDTIME SLIDING SC PRN PRN Reason: Bedtime Correctional Scale Liothyronine Sodium (Cytomel) 5 mcg PO DAILY [facility] Last Admin: 12/12/18 16:14 Dose: Not Given Mometasone Furoate/Formoterol Fumar (Dulera 100 Mcg/5 Mcg Inhaler) 2 puff INH BID-RT [facility] Last Admin: 12/13/18 07:59 Dose: 2 puff Ondansetron HCl (Zofran Odt) 4 mg PO Q6H PRN PRN Reason: Nausea/Vomiting Ondansetron HCl (Zofran) 4 mg IVP Q6H PRN PRN Reason: Nausea/Vomiting Polyvinyl Alcohol/Povidone (Refresh Classic Eye Drops) 1 each EA EYE QID [facility] Last Admin: 12/13/18 08:51 Dose: Not Given Propylene Glycol (Systane Opth Drop 15ml Bot) 2 drop EA EYE Q4H PRN PRN Reason: Dry Eyes Quetiapine Fumarate (Seroquel) 12.5 mg PO HS [facility] Last Admin: 12/12/18 21:20 Dose: 12.5 mg Senna/Docusate Sodium (Senokot S) 1 tab PO BID [facility] Last Admin: 12/13/18 08:52 Dose: Not Given Sodium Chloride (Flush - Normal Saline) 10 ml IVF Q12HR [facility] Last Admin: 12/13/18 08:52 Dose: Not Given Sodium Chloride (Flush - Normal Saline) 10 ml IVF PRN PRN PRN Reason: Saline Flush Sodium Chloride (Flush - Normal Saline) 10 ml IVF PRN PRN PRN Reason: Saline Flush Tramadol HCl (Ultram) 50 mg PO Q6H PRN PRN Reason: Pain
[2018-12-13] MEDS: Clopidogrel Bisulfate 75 MG TAB PO SCH (18:43)
[2018-12-13] MEDS: Atorvastatin Calcium 40 MG TAB PO SCH (21:14)
[2018-12-14] MEDS: Mometasone/Formoterol 120 PUFF INHALER INH SCH ×2 (07:39→18:09)
--- NOTE | 2018-12-14 07:47 | PRG ---
DATE OF SERVICE: 12/14/2018 SUBJECTIVE: Omer Higgins is doing well today. She has a good thrill in her left arm fistula. The patient is morbidly obese and maturation of this fistula will take some time. She may even need a position to gain access. For this reason, I will see her in my office in 8 weeks. I will see her as needed this hospitalization. Please call if necessary. Job ID: [id number]
[2018-12-14] MEDS: Heparin 5,000 UNITS/ML VIAL SC SCH ×2 (07:55→20:21)
[2018-12-14] MEDS: Amiodarone 200 MG TAB PO SCH ×2 (07:56→20:20)
[2018-12-14] MEDS: Allopurinol 100 MG TAB PO SCH (07:56)
[2018-12-14] MEDS: Liothyronine Sodium 5 MCG TAB PO SCH (07:56)
[2018-12-14] MEDS: Aspirin 81 mg Enteric Coated Tablet PO SCH (07:56)
[2018-12-14] MEDS: Senokot S 8.6-50 MG TAB PO SCH ×2 (07:56→20:21)
--- NOTE | 2018-12-14 09:44 | PRG ---
DATE OF SERVICE: 12/14/2018 SUBJECTIVE: Omer Higgins is a morbidly obese female. She denies any pain or discomfort. OBJECTIVE: VITAL SIGNS: This morning, she is better, sats are 92% on 2 L, respirations 17, pulse 68, temperature 99, and blood pressure 119/65. CHEST: Decreased breath sounds without any wheezing. CARDIAC: Normal S1, S2. No gallops. ABDOMEN: No masses. ASSESSMENT AND PLAN: 1. Morbid obesity. 2. Severe deconditioning. 3. Chronic renal failure. 4. Sleep apnea. 5. Chronic obstructive pulmonary disease. 6. DNR. Disposition, as per primary care physician. [facility]. She did aggressive PT and supportive care. Job ID: [id number]
[2018-12-14 09:45] LABS: #Eosinphils 0.1 thou/uL (0.0-0.7); #Lymphocytes 0.8 thou/uL (1.20-3.40); #Monocytes 0.6 thou/uL (0.11-0.59); #Neutrophils 5.9 thou/uL (1.40-6.50); %Eosinophils 1.9 % (0.0-10.0); %Lymphocytes 10.8 % (21.0-51.0); %Monocytes 8.4 % (0.0-10.0); %Neutrophils 78.9 % (42.0-75.0); Hemoglobin 7.4 g/dL (12.0-16.0); Mean Corpuscular Hemoglobin 30.6 pg (27.0-31.0); Mean Platelet Volume 8.9 fL (7.4-10.4); Platelet Count 185 thou/uL (130-400); RBC Distribution Width 17.8 % (11.5-14.5); Red Blood Cell (RBC) Count 2.41 mill/uL (4.20-5.40); White Blood Cell (WBC) Count 7.5 thou/uL (4.8-10.8)
[2018-12-14] MEDS: Artificial Tear Sol 15 ML BOT EA EYE SCH ×4 (10:18→20:21)
[2018-12-14] MEDS: Clopidogrel Bisulfate 75 MG TAB PO SCH (18:02)
[2018-12-14] MEDS: Atorvastatin Calcium 40 MG TAB PO SCH (20:21)
[2018-12-14] MEDS: Acetaminophen 500 MG TAB PO PRN (20:21)
[2018-12-14 20:55] VITALS: TEMP 98.5
--- NOTE | 2018-12-14 22:53 | PDOC.PN ---
- Subjective Encounter Start Date: 12/14/18 Encounter Start Time: 16:00 Subjective: pt up in bed no complains -: worked well with PT today -: more awake and alert - Objective Resuscitation Status - Order Detail: 12/08/18 13:39 Resuscitation Status Routine Resuscitation Status: DNAR: NO Resuscitation Discussed with: confirmed with pt, as well as her new MPOA her brother Floyd Vital Signs & Weight: Vital Signs (12 hours) Temp Pulse Resp BP Pulse Ox 12/14/18 20:00 98.5 F 63 18 122/64 97 12/14/18 18:06 60 16 98 12/14/18 14:01 68 20 93 L Weight Admit Weight 298 lb 2 oz Weight 271 lb 3.2 oz Most Recent Monitor Data Heart Rate from ECG 66 NIBP 104/40 NIBP BP-Mean 61 Respiration from ECG 28 SpO2 93 I&O: 12/13/18 12/14/18 12/15/18 06:59 06:59 06:59 Intake Total 90 970 720 Output Total 4600 Balance 90 -3630 720 Result Diagrams: 12/14/18 09:29 12/12/18 12:57 Additional Labs: Accuchecks 12/14/18 12/14/18 12/14/18 20:47 15:42 11:47 POC Glucose 128 H 128 H 95 12/14/18 06:07 POC Glucose 93 Phys Exam - Physical Examination Neck: no nodes, no JVD, supple, full ROM Respiratory: no wheezing, no rales, no rhonchi, wheezing present, clear to auscultation bilateral Cardiovascular: RRR, no significant murmur, no rub, gallop, irregular Gastrointestinal: soft, non-tender, no distention, positive bowel sounds Musculoskeletal: edema present left hand edema and erythema improving Dx/Plan (1) Acute metabolic encephalopathy Code(s): G93.41 - METABOLIC ENCEPHALOPATHY Status: Acute (2) Bradycardia Code(s): R00.1 - BRADYCARDIA, UNSPECIFIED Status: Acute (3) ESRD needing dialysis Code(s): N18.6 - END STAGE RENAL DISEASE; Z99.2 - DEPENDENCE ON RENAL DIALYSIS Status: Acute Comment: HD catheter placement today, initiate HD per Renal service, outpt AV fistula placement (4) Volume overload Code(s): E87.70 - FLUID OVERLOAD, UNSPECIFIED Status: Acute Comment: Secondary to ESRD, improving (5) Anemia in CKD (chronic kidney disease) Code(s): N18.9 - CHRONIC KIDNEY DISEASE, UNSPECIFIED; D63.1 - ANEMIA IN CHRONIC KIDNEY DISEASE Status: Chronic Comment: Due to CKD, serial H/H monitoring (6) Diabetes mellitus type 2 in obese Code(s): E11.69 - TYPE 2 DIABETES MELLITUS WITH OTHER SPECIFIED COMPLICATION; E66.9 - OBESITY, UNSPECIFIED Status: Chronic Comment: Resume home insulin regiment with Lantus 20u BID, ISS, ADA - Plan vaginal bleeding is minimal, low hh will monitor -: if ok from all consultants possible discharge in am -: will continue low dose seroquel, pt's mentation more -: clear today * . Review of Systems - Review of Systems Respiratory: negative: Cough, Dry, Shortness of Breath, Hemoptysis, SOB with Excertion, Pleuritic Pain, Sputum, Wheezing Cardiovascular: negative: chest pain, palpitations, orthopnea, paroxysmal nocturnal dyspnea, edema, light headedness, other - Medications/Allergies Allergies/Adverse Reactions: Allergies Allergy/AdvReac Type Severity Reaction Status Date / Time adhesive Allergy Verified 11/29/18 18:21 Medications: Current Medications Acetaminophen (Tylenol) 1,000 mg PO Q6H PRN PRN Reason: Moderate to Severe Pain (6-10) Last Admin: 12/14/18 20:21 Dose: 1,000 mg Albuterol/Ipratropium (Duoneb) 3 ml NEB [id number] [facility] Last Admin: 12/14/18 18:06 Dose: 3 ml Allopurinol (Zyloprim) 100 mg PO DAILY [facility] Last Admin: 12/14/18 07:56 Dose: 100 mg Amiodarone HCl (Cordarone) 400 mg PO BID [facility] Last Admin: 12/14/18 20:20 Dose: 400 mg Artificial Tears (Liquitears 15ml Bottle) 0 drop EA EYE QID [facility] Last Admin: 12/14/18 20:21 Dose: 2 drop Aspirin (Ecotrin) 81 mg PO DAILY [facility] Last Admin: 12/14/18 07:56 Dose: 81 mg Atorvastatin Calcium (Lipitor) 40 mg PO HS [facility] Last Admin: 12/14/18 20:21 Dose: 40 mg Clopidogrel Bisulfate (Plavix) 75 mg PO DAILY@1800 [facility] Last Admin: 12/14/18 18:02 Dose: 75 mg Dextrose/Water (Dextrose 50%) 25 gm SLOW IVP PRN PRN PRN Reason: Hypoglycemia Last Admin: 12/03/18 07:55 Dose: 25 gm Glucagon (Glucagon) 1 mg IM PRN PRN PRN Reason: Hypoglycemia Heparin Sodium (Porcine) (Heparin) 5,000 units SC BID [facility] Last Admin: 12/14/18 20:21 Dose: 5,000 units Dextrose/Water (D5w) 1,000 mls @ 0 mls/hr IV .Q0M PRN PRN Reason: Hypoglycemia Cefazolin Sodium/Dextrose 2 gm (/ Device) 50 mls @ 100 mls/hr IVPB ONCALL-OR [facility]INC[facility] Insulin Human Lispro (Humalog) 0 units SC .MILD SLIDING SCALE PRN PRN Reason: Mild Correctional Scale Last Admin: 12/02/18 17:56 Dose: 4 unit Insulin Human Lispro (Humalog) 0 units SC .BEDTIME SLIDING SC PRN PRN Reason: Bedtime Correctional Scale Liothyronine Sodium (Cytomel) 5 mcg PO DAILY [facility] Last Admin: 12/14/18 07:56 Dose: 5 mcg Mometasone Furoate/Formoterol Fumar (Dulera 100 Mcg/5 Mcg Inhaler) 2 puff INH BID-RT [facility] Last Admin: 12/14/18 18:09 Dose: 2 puff Ondansetron HCl (Zofran Odt) 4 mg PO Q6H PRN PRN Reason: Nausea/Vomiting Ondansetron HCl (Zofran) 4 mg IVP Q6H PRN PRN Reason: Nausea/Vomiting Propylene Glycol (Systane Opth Drop 15ml Bot) 2 drop EA EYE Q4H PRN PRN Reason: Dry Eyes Quetiapine Fumarate (Seroquel) 12.5 mg PO HS [facility] Last Admin: 12/14/18 20:19 Dose: 12.5 mg Senna/Docusate Sodium (Senokot S) 1 tab PO BID [facility] Last Admin: 12/14/18 20:21 Dose: 1 tab Sodium Chloride (Flush - Normal Saline) 10 ml IVF Q12HR [facility] Last Admin: 12/14/18 20:23 Dose: 10 ml Sodium Chloride (Flush - Normal Saline) 10 ml IVF PRN PRN PRN Reason: Saline Flush Sodium Chloride (Flush - Normal Saline) 10 ml IVF PRN PRN PRN Reason: Saline Flush Tramadol HCl (Ultram) 50 mg PO Q6H PRN PRN Reason: Pain
[2018-12-15] MEDS: Mometasone/Formoterol 120 PUFF INHALER INH SCH (07:27)
[2018-12-15 07:46] VITALS: BP 109/61
[2018-12-15] MEDS: Artificial Tear Sol 15 ML BOT EA EYE SCH ×3 (08:06→17:15)
[2018-12-15] MEDS: Liothyronine Sodium 5 MCG TAB PO SCH (08:06)
[2018-12-15] MEDS: Amiodarone 200 MG TAB PO SCH (08:07)
[2018-12-15] MEDS: Allopurinol 100 MG TAB PO SCH (08:07)
[2018-12-15] MEDS: Senokot S 8.6-50 MG TAB PO SCH (08:07)
[2018-12-15] MEDS: Aspirin 81 mg Enteric Coated Tablet PO SCH (08:07)
[2018-12-15] MEDS: Heparin 5,000 UNITS/ML VIAL SC SCH (08:07)
--- NOTE | 2018-12-15 09:07 | PRG ---
DATE OF SERVICE: 12/15/2018 SUBJECTIVE: Omer Higgins, this morning, is awake, alert, responsive, being dialyzed, looks better. OBJECTIVE: VITAL SIGNS: Saturations are 93% on 2 L, temperature 98, pulse 77, respirations 17, and blood pressure 109/61. CHEST: No wheezing. CARDIAC: Normal S1 and S2. No gallops. ABDOMEN: No masses. LABORATORY DATA: H and H are stable at 7 and 23, platelet count normal. ASSESSMENT: 1. Multiorgan failure encephalopathy, improved. 2. Renal failure. 3. Congestive heart failure. 4. Chronic obstructive pulmonary disease. 5. Sleep apnea. PLAN: Disposition, custodial anytime. Continue dialysis. We will continue neb treatments. We will follow. Job ID: [id number]
[2018-12-15] MEDS ORDERED: Heparin 1,000 UNITS/ML VIAL ONE (11:11)
[2018-12-15] MEDS: Clopidogrel Bisulfate 75 MG TAB PO SCH (17:55)
[2018-12-15] MEDS: HumaLOG 300 UNITS/3 ML VIAL SC PRN (18:04)
== END 2018-12-15 18:10 | DRG 264 ==
LOC: ERS 11:56 → 2NO 14:46 → OBSVTOIN 14:46 → CCU 12-03 08:03 → 2NO 12-09 11:16 → T4-B 12-13 20:46
PROVIDERS: ADMIT Internal Medicine; ATTEND Internal Medicine
PROC: 5A1D70Z Performance of Urinary Filtration, Intermittent, Less than 6 Hours Per Day (ICD-10-PCS; 2018-11-29)
PROC: 0JH63XZ Insertion of Tunneled Vascular Access Device into Chest Subcutaneous Tissue and Fascia, Percutaneous Approach (ICD-10-PCS; 2018-11-30)
PROC: 02HV33Z Insertion of Infusion Device into Superior Vena Cava, Percutaneous Approach (ICD-10-PCS; 2018-11-30)
PROC: B5181ZA Fluoroscopy of Superior Vena Cava using Low Osmolar Contrast, Guidance (ICD-10-PCS; 2018-11-30)
PROC: B548ZZA Ultrasonography of Superior Vena Cava, Guidance (ICD-10-PCS; 2018-11-30)
PROC: 031C0ZF Bypass Left Radial Artery to Lower Arm Vein, Open Approach (ICD-10-PCS; principal; 2018-12-12)
DX: I13.2 Hypertensive heart and chronic kidney disease with heart failure and with stage 5 chronic kidney disease, or end stage renal disease (principal); J96.21 Acute and chronic respiratory failure with hypoxia; G93.41 Metabolic encephalopathy; I50.43 Acute on chronic combined systolic (congestive) and diastolic (congestive) heart failure; N18.6 End stage renal disease; N17.9 Acute kidney failure, unspecified; Z68.43 Body mass index [BMI] 50.0-59.9, adult; J96.11 Chronic respiratory failure with hypoxia; J44.1 Chronic obstructive pulmonary disease with (acute) exacerbation; Z66 Do not resuscitate; E03.9 Hypothyroidism, unspecified; M19.90 Unspecified osteoarthritis, unspecified site; E88.81 Metabolic syndrome and other insulin resistance; D63.1 Anemia in chronic kidney disease; D69.6 Thrombocytopenia, unspecified; E78.5 Hyperlipidemia, unspecified; R31.0 Gross hematuria; G47.33 Obstructive sleep apnea (adult) (pediatric); K59.00 Constipation, unspecified; E11.22 Type 2 diabetes mellitus with diabetic chronic kidney disease; E66.01 Morbid (severe) obesity due to excess calories; I73.9 Peripheral vascular disease, unspecified; E87.5 Hyperkalemia; I95.9 Hypotension, unspecified; R00.1 Bradycardia, unspecified; F41.8 Other specified anxiety disorders; Z96.653 Presence of artificial knee joint, bilateral; Z79.82 Long term (current) use of aspirin; Z79.899 Other long term (current) drug therapy; Z90.49 Acquired absence of other specified parts of digestive tract; Z90.710 Acquired absence of both cervix and uterus; Z90.12 Acquired absence of left breast and nipple; Z98.890 Other specified postprocedural states; Z79.4 Long term (current) use of insulin; Z86.73 Personal history of transient ischemic attack (TIA), and cerebral infarction without residual deficits
CPT/HCPCS: 36415; 36416; 36430; 71045; 80048; 80053; 82550; 82607; 82746; 82805; 83880; 84439; 84443; 84480; 84484; 85007; 85025; 85027; 86580; 86704; 86705; 86706; 86707; 86803; 86850; 86900; 86901; 87040; 87086; 87340; 87350; 87389; 90935; 93005; 93010; 93306; 93970; 94640; 94660; C1752; C1769; G0257; G0365; J0461; J0670; J0690; J1250; J1265; J1644; J1650; J1815; J1940; J2001; J2250; J2270; J2310; J2370; J2405; J2704; J2720; J3010; J7070; J7620; P9016; S0028

== ENCOUNTER 2018-12-18 15:01 | Inpatient (IN) | payer MEDICARE ==
[2018-12-18 15:36] LABS: #Eosinphils 0.1 thou/uL (0.0-0.7); #Lymphocytes 0.6 thou/uL (1.20-3.40); #Monocytes 0.6 thou/uL (0.11-0.59); #Neutrophils 3.4 thou/uL (1.40-6.50); %Eosinophils 2.1 % (0.0-10.0); %Monocytes 12.3 % (0.0-10.0); %Neutrophils 73.7 % (42.0-75.0); Mean Corpuscular HGB CONC 30.3 g/dL (32.0-36.0); Mean Corpuscular Hemoglobin 30.7 pg (27.0-31.0); Mean Platelet Volume 8.8 fL (7.4-10.4); Platelet Count 228 thou/uL (130-400); RBC Distribution Width 17.2 % (11.5-14.5); White Blood Cell (WBC) Count 4.6 thou/uL (4.8-10.8)
[2018-12-18 15:42] LABS: INR-International Normal Ratio 1.2; PTT 26.3 SEC (22.9-36.1); Prothrombin Time 14.8 SEC (12.0-14.7)
[2018-12-18 15:55] LABS: ALT (SGPT) Less than 7 U/L (8-55); AST (SGOT) 17 U/L (5-34); Albumin 3.2 g/dL (3.4-4.8); Alkaline Phosphatase 86 U/L (40-150); Anion Gap 12 mmol/L (10-20); BUN (Urea Nitrogen) 22 mg/dL (9.8-20.1); Bilirubin, Total 0.4 mg/dL (0.2-1.2); Calc. Creatinine Clearance 0 mL/min (70-130); Calcium 8.9 mg/dL (7.8-10.44); Carbon Dioxide 31 mmol/L (23-31); Chloride 102 mmol/L (98-107); Estimated GFR-MDRD 13; Globulin 2.5 g/dL (2.4-3.5); Glucose 153 mg/dL (83-110); Potassium 4.1 mmol/L (3.5-5.1); Protein, Total 5.7 g/dL (6.0-8.3); Sodium 141 mmol/L (136-145)
[2018-12-18 16:05] LABS: Iron 20 ug/dL (50-170); Iron Binding Capacity, Total 256 mcg/dL (265-497)
[2018-12-18] MEDS ORDERED: Ondansetron PF 4 MG/2 ML Vial IVP PRN ×2 (20:04→21:45)
[2018-12-18] MEDS ORDERED: Ondansetron ODT 4 MG TAB SL PRN (20:04)
[2018-12-18] MEDS ORDERED: Acetaminophen 325 MG TAB PO PRN (20:04)
[2018-12-18] MEDS ORDERED: traMADol HCl 50 MG TAB PO PRN (21:43)
[2018-12-18] MEDS ORDERED: Melatonin 3 MG TAB PO PRN (21:44)
[2018-12-18] MEDS ORDERED: Ondansetron ODT 4 MG TAB PO PRN (21:45)
[2018-12-18] MEDS ORDERED: Dextrose 5% in Water 1,000 ML IV PRN (21:45)
[2018-12-18] MEDS ORDERED: Bisacodyl 5 MG TAB PO PRN (21:45)
[2018-12-18] MEDS ORDERED: Nitroglycerin 0.4 MG TAB (25 Tab Bottle) SL PRN (21:45)
[2018-12-18] MEDS ORDERED: Benzonatate 100 MG CAP PO PRN (21:45)
[2018-12-18] MEDS ORDERED: hydrALAZINE 20 MG/ML VIAL SLOW IVP PRN (21:45)
[2018-12-18] MEDS ORDERED: Diabetic Tussin 200 MG/10 ML UDCUP PO PRN (21:45)
[2018-12-18] MEDS ORDERED: HumaLOG 300 UNITS/3 ML VIAL SC PRN ×2 (21:45)
[2018-12-18] MEDS ORDERED: Senokot S 8.6-50 MG TAB PO PRN (21:45)
[2018-12-18] MEDS ORDERED: Dextrose 50% Abboject 50 ML SYRINGE SLOW IVP PRN (21:45)
[2018-12-18] MEDS ORDERED: Loratadine 10 MG TAB PO PRN (21:45)
[2018-12-18] MEDS ORDERED: Sodium Chloride 0.65% Nasal 44 ML BOT EA NARE PRN (21:45)
[2018-12-18] MEDS ORDERED: Bisacodyl 10 MG SUPP PR PRN (21:45)
[2018-12-18] MEDS ORDERED: Polyethylene Glycol OPTH DROP 15 ML BOT EA EYE PRN (21:47)
[2018-12-18] MEDS ORDERED: IRON SUCROSE COMPLEX 100 MG/5 ML SLOW IVP SCH (22:30)
[2018-12-18 22:48] VITALS: BMI 43.0
--- NOTE | 2018-12-18 23:29 | HP ---
PRIMARY CARE PHYSICIAN: Dr. Wil Bronson. CHIEF COMPLAINT: Bleeding. HISTORY OF PRESENTING ILLNESS: Ms. Higgins is an 83-year-old female with past medical history of end-stage renal disease, on hemodialysis; chronic anemia due to chronic kidney disease; diabetes mellitus; history of breast cancer; as well as chronic combined congestive heart failure and hypothyroidism, who presented to the emergency room with above-mentioned complaint. History is mainly obtained by the patient's son at bedside and by electronic medical record review. The patient is tired and would rather rest. The patient was recently admitted to our facility earlier this month on 11/29/2018 and was discharged a few days ago on 12/15/2018. Please note that the discharge summary is not available to review at this time. I have looked at all the notes by the hospitalist as well as Cardiology and other consultants. It seems like that the patient was treated for acute CHF. She was taken off her diuretics and was started on hemodialysis during this hospitalization. She was also seen by Cardiology for acute CHF and had a coding episode where she developed bradycardia and required dobutamine drip in the CCU. It seems like she was eventually taken off her diuretics as well as her carvedilol. She was eventually discharged to [facility] for long-term placement and rehab. Once again, discharge summary is available at this time for review. However, it seems like she was having some vaginal bleed at that time too, which was addressed by the hospitalist. She had an anemia due to chronic kidney disease and required 1 unit of packed RBC transfusion on 12/05/2018. In the emergency room today, she was brought in once again with complaints of vaginal bleed, which has been ongoing for years. She also had significant complaints of inability to have a BM all morning long with bearing down and rectal pain. Her son also noticed that she has been started on Seroquel during her last hospitalization few days ago and has been "going crazy." She reports hallucinations and nightmares. Feels that she was started on iron supplements orally with causing her to have severe constipation. Upon presentation to the ER, she was somewhat hypotensive with her blood pressure initially 82/43. Her physical examination revealed significant amount of stool impaction, which was manually disimpacted by the ER physician. This helped relieving the hypotension. Her hemoglobin was also found to be at 7.0, for which she was transfused 1 unit of packed RBCs. She is now being admitted under observation status for H and H monitoring. She is feeling considerably better. She has known history of hemorrhoids as per her son who is present at the bedside. CODE STATUS: Do not resuscitate or intubate. This is confirmed with the patient and the son at bedside. PAST MEDICAL HISTORY, PAST SURGICAL HISTORY, FAMILY HISTORY, SOCIAL HISTORY: Please review the H and P dictated by LILI Izquierdo, on 11/29/2018. It remains unchanged and reviewed with the patient and son, been placed on [facility] since then. ALLERGIES: KNOWN ALLERGIES, ADHESIVES. HOME MEDICATIONS: The patient was discharged on the following medication on discharge on 12/15/2018; 1. Amiodarone 400 mg p.o. b.i.d. 2. Humalog insulin sliding scale. 3. Aspirin 81 mg daily. 4. Carvedilol 12.5 mg p.o. b.i.d. 5. Plavix 75 mg daily. 6. Hydralazine 50 mg p.o. b.i.d. 7. Seroquel 12.5 mg at bedtime. 8. Allopurinol 100 mg daily. 9. Atorvastatin 40 mg daily. 10. Breo Ellipta one puff daily. 11. Heparin subcu b.i.d. 5000 units. 12. DuoNeb q.i.d. 13. Cytomel 5 mcg daily. 14. Senokot S daily. 15. Tramadol p.r.n. I AM NOT SURE IF THE PATIENT WAS SUPPOSED TO BE ON AMIODARONE OR NOT. SHE HAS NOTICED BRADYCARDIA REQUIRING CODING AND DOBUTAMINE DRIP IN THE HOSPITAL AND WAS TAKEN OFF THE CARVEDILOL. I HAVE REVIEWED ALL OF THE CARDIOLOGY NOTES AND NONE OF THEM MENTIONED AMIODARONE. THERE IS NO REAL INDICATION OF AMIODARONE FAR I COULD TELL FROM HER CHART REVIEW. REVIEW OF SYSTEMS: A 14-point review of system is done and is negative except those mentioned in history and physical. LABORATORY DATA: CBC shows WBCs 4.6, hemoglobin 7.0 with hematocrit 23.3, platelet count 228. Coagulation studies within normal limits. Serum chemistry showed BUN 22, creatinine 3.35, blood sugar 153. Her iron levels are low at 20, TIBC low at 256, ferritin 92. No other studies were done in the ER. PHYSICAL EXAMINATION: VITAL SIGNS: Most recent vital signs, systolic blood pressure 119. Vital signs on presentation, pulse of 57, currently running in the low 50s. Saturating 93% on 2 L oxygen. Respirations 18. GENERAL: She appears pale, but otherwise in no acute distress. She is alert and oriented to place, person, and time. Son is at bedside. She is asleep, but easily woken up and feels tired. She feels hungry. HEENT EXAMINATION: Mucous membrane is slightly dry. No oropharyngeal exudate or erythema. Head is normocephalic and atraumatic. Pupils are equally reactive to light and accommodation. Extraocular movements intact. NECK: Supple without any lymphadenopathy, JVD, or bruit. Bruising to anterior neck is noticed. HEART: Rate rhythm is regular without any murmurs, rubs, or gallops. CHEST: Clear to auscultation bilaterally. She has bruising bilaterally on her breasts. ABDOMEN: Soft, nontender, nondistended with positive bowel sounds. No peritoneal signs. EXTREMITIES: Free of any cyanosis or clubbing. She has +1 to +2 pitting edema in bilateral lower extremities, which according to her son is dramatically better in comparison to her last hospitalization. He feels that she was 60 pounds overweight than today's weight. She has a left wrist fistula with bruising and erythema to the dorsal left hand. NEUROLOGICAL EXAMINATION: Nonfocal. SKIN: Free of any rashes or bruises. Feels warm and dry to touch. PSYCHIATRIC: Normal affect. IMPRESSION AND PLAN: 1. Acute worsening of chronic anemia of kidney disease. The patient has been transfused 1 unit of packed RBC in the ER. We will recheck in the morning and transfuse as necessary with hemodialysis in the morning. She has iron deficiency, but intolerant to oral iron. We will also provide her with IV iron in the morning. I am not sure if she is receiving erythropoietin with dialysis or not. We will go ahead and order that to prevent frequent drop in the hemoglobin. She will be taken off oral iron supplements because of severe obstipation and fecal impaction. a. The patient has history of vaginal bleed which was worked up during her last hospitalization. This is minimal and I doubt that this is contributing to her chronic anemia. The patient will be monitored and if it reoccurs, we will consult [employer] physicians for a possible endometrial biopsy. It seems like it was worked up in the outpatient setting. Tonight, we will hold her aspirin and Plavix. If her H and H remain stable, this can be restarted. 2. Hypotension. The patient's hypotension has resolved after the disimpaction. We will hold her antihypertensives for tonight. The patient's blood pressure normally runs low according to her son. Her medications need to be adjusted, including the hydralazine. 3. Stool impaction. The patient has been disimpacted. We will put her on a daily dose of MiraLAX and take her off the oral iron supplements. Proper bowel regimen is recommended upon discharge. 4. End-stage renal disease, on hemodialysis. We will consult her forest worker for maintenance hemodialysis. She has Wednesday, Wednesday, Wednesday schedule. 5. Chronic combined diastolic heart failure. The patient was taken off her diuretics because of worsening renal failure and since then has been started on hemodialysis. She was taken off her beta shannon because of bradycardia. She was taken off her DUARTE inhibitor/ARB because of chronic kidney disease. She is currently compensated and little bit on the drier feeder side. 6. Diabetes mellitus. We will put her insulin sliding scale and reconcile home medications. If her blood sugar does not drop, she can restart her long-acting insulin as well. 7. Hypertension. Currently blood pressure is soft and we will hold her hydralazine. 8. Dyslipidemia. Continue home statin. 9. Chronic hypothyroidism. We will restart her levothyroxine. 10. Deep venous thrombosis and gastrointestinal prophylaxis. 11. Surrogate decision maker is her son, Jose Ríos. DISPOSITION: The patient is currently being admitted under observation status for blood transfusion and fecal impaction. Further management will depend upon her clinical course. Job ID: [id number]
[2018-12-19 05:19] LABS: #Eosinphils 0.1 thou/uL (0.0-0.7); #Lymphocytes 0.7 thou/uL (1.20-3.40); #Monocytes 0.8 thou/uL (0.11-0.59); #Neutrophils 5.1 thou/uL (1.40-6.50); %Basophils 0.3 % (0.0-1.0); %Eosinophils 1.5 % (0.0-10.0); %Lymphocytes 10.1 % (21.0-51.0); %Monocytes 12.4 % (0.0-10.0); %Neutrophils 75.8 % (42.0-75.0); Hemoglobin 7.7 g/dL (12.0-16.0); Mean Corpuscular HGB CONC 30.1 g/dL (32.0-36.0); Mean Corpuscular Hemoglobin 30.1 pg (27.0-31.0); Mean Platelet Volume 8.6 fL (7.4-10.4); Platelet Count 240 thou/uL (130-400); RBC Distribution Width 17.7 % (11.5-14.5); Red Blood Cell (RBC) Count 2.55 mill/uL (4.20-5.40); White Blood Cell (WBC) Count 6.7 thou/uL (4.8-10.8)
[2018-12-19 05:42] LABS: Anion Gap 12 mmol/L (10-20); BUN (Urea Nitrogen) 26 mg/dL (9.8-20.1); Calc. Creatinine Clearance 20 mL/min (70-130); Calcium 8.8 mg/dL (7.8-10.44); Carbon Dioxide 31 mmol/L (23-31); Chloride 102 mmol/L (98-107); Estimated GFR-MDRD 11; Glucose 116 mg/dL (83-110); Potassium 4.4 mmol/L (3.5-5.1); Sodium 141 mmol/L (136-145)
[2018-12-19] MEDS: Mometasone/Formoterol 120 PUFF INHALER INH SCH ×2 (06:51→19:50)
[2018-12-19] MEDS ORDERED: EPOETIN ALFA-EPBX (ESRD) 10,000 UNIT/ML VIAL SC SCH (07:00)
[2018-12-19] MEDS ORDERED: IRON SUCROSE COMPLEX 100 MG/5 ML SLOW IVP SCH (08:00)
[2018-12-19] MEDS ORDERED: Iron, Sodium Ferric Gluconate 250 MG in Sodium Chloride 0.9% 100 ML IVPB SCH ×2 (08:00→12:00)
[2018-12-19] MEDS: Heparin 5,000 UNITS/ML VIAL SC SCH ×2 (08:56→21:40)
[2018-12-19] MEDS: Famotidine 20 MG TAB PO SCH (08:56)
[2018-12-19] MEDS: Allopurinol 100 MG TAB PO SCH (08:56)
[2018-12-19] MEDS: Polyethylene Glycol 3350 17 GM Packet PO SCH (08:57)
[2018-12-19] MEDS ORDERED: Senokot S 8.6-50 MG TAB PO SCH (09:00)
--- NOTE | 2018-12-19 11:13 | PDOC.PN ---
- Subjective Encounter Start Date: 12/19/18 Encounter Start Time: 11:11 Patient seen and examined, no new issues or complaints. All questions answered. - Objective Resuscitation Status - Order Detail: 12/18/18 21:45 Resuscitation Status Routine Resuscitation Status: DNAR: NO Resuscitation Discussed with: discussed with pt and son Vital Signs & Weight: Vital Signs (12 hours) Temp Pulse Resp BP BP BP Pulse Ox 12/19/18 10:45 61 14 12/19/18 08:00 96.3 F L 56 L 16 114/54 L 98 12/19/18 07:00 96.3 F L 56 L 16 114/54 L 98 12/19/18 06:51 60 14 12/19/18 02:56 97 F L 59 L 21 H 130/62 95 12/18/18 23:45 97.1 F L 56 L 20 138/63 92 L Weight Admit Weight 251 lb Weight 251 lb I&O: 12/18/18 12/19/18 12/20/18 06:59 06:59 06:59 Intake Total 20 340 Balance 20 340 Result Diagrams: 12/19/18 04:59 12/19/18 04:59 Additional Labs: Accuchecks 12/19/18 12/19/18 12/18/18 10:50 05:27 21:08 POC Glucose 152 H 125 H 133 H Phys Exam - Physical Examination Constitutional: NAD HEENT: PERRLA, moist MMs, sclera anicteric Neck: no nodes, no JVD, supple Respiratory: no wheezing, no rales, no rhonchi Cardiovascular: RRR, no significant murmur, no rub Gastrointestinal: soft, non-tender, no distention, positive bowel sounds Musculoskeletal: no edema, pulses present Dx/Plan (1) Anemia Code(s): D64.9 - ANEMIA, UNSPECIFIED Status: Acute (2) CAD (coronary artery disease) Code(s): I25.10 - ATHSCL HEART DISEASE OF [place] CORONARY ARTERY W/O ANG PCTRS Status: Acute (3) ESRD needing dialysis Code(s): N18.6 - END STAGE RENAL DISEASE; Z99.2 - DEPENDENCE ON RENAL DIALYSIS Status: Acute Comment: HD catheter placement today, initiate HD per Renal service, outpt AV fistula placement (4) Diabetes mellitus type 2 in obese Code(s): E11.69 - TYPE 2 DIABETES MELLITUS WITH OTHER SPECIFIED COMPLICATION; E66.9 - OBESITY, UNSPECIFIED Status: Chronic Comment: Resume home insulin regiment with Lantus 20u BID, ISS, ADA (5) Hypertension Code(s): I10 - ESSENTIAL (PRIMARY) HYPERTENSION Status: Chronic - Plan * getting IV iron for now * HD per renal * monitor for 24-48hrs longer * once HD is started and Hgb stable and stable from a renal perspective will plan for DC * case and plan d/w patient at length, she understood and agreed with this plan.
[2018-12-19] MEDS: Liothyronine Sodium 5 MCG TAB PO SCH (11:25)
[2018-12-19] MEDS ORDERED: EPOETIN ALFA-EPBX (ESRD) 10,000 UNIT/ML VIAL SC PRN (11:33)
[2018-12-19] MEDS: Acetaminophen 325 MG TAB PO PRN ×2 (18:27→23:35)
[2018-12-19] MEDS: Atorvastatin Calcium 40 MG TAB PO SCH (21:49)
[2018-12-20 06:27] LABS: #Eosinphils 0.1 thou/uL (0.0-0.7); #Lymphocytes 0.7 thou/uL (1.20-3.40); #Monocytes 0.8 thou/uL (0.11-0.59); #Neutrophils 4.1 thou/uL (1.40-6.50); %Basophils 0.3 % (0.0-1.0); %Eosinophils 2.2 % (0.0-10.0); %Lymphocytes 12.6 % (21.0-51.0); %Monocytes 13.3 % (0.0-10.0); %Neutrophils 71.6 % (42.0-75.0); Hemoglobin 6.2 g/dL (12.0-16.0); Mean Corpuscular HGB CONC 30.7 g/dL (32.0-36.0); Mean Corpuscular Hemoglobin 30.5 pg (27.0-31.0); Mean Corpuscular Volume 99.2 fL (78.0-98.0); Mean Platelet Volume 8.7 fL (7.4-10.4); Platelet Count 255 thou/uL (130-400); RBC Distribution Width 17.4 % (11.5-14.5); Red Blood Cell (RBC) Count 2.04 mill/uL (4.20-5.40); White Blood Cell (WBC) Count 5.7 thou/uL (4.8-10.8)
[2018-12-20] MEDS: Mometasone/Formoterol 120 PUFF INHALER INH SCH ×2 (06:40→19:14)
[2018-12-20] MEDS: Heparin 5,000 UNITS/ML VIAL SC SCH (09:16)
[2018-12-20] MEDS: Polyethylene Glycol 3350 17 GM Packet PO SCH (09:16)
[2018-12-20] MEDS: Liothyronine Sodium 5 MCG TAB PO SCH (09:31)
[2018-12-20] MEDS: Famotidine 20 MG TAB PO SCH (09:31)
[2018-12-20] MEDS: Allopurinol 100 MG TAB PO SCH (09:31)
--- NOTE | 2018-12-20 11:01 | PDOC.PN ---
- Subjective Encounter Start Date: 12/20/18 Encounter Start Time: 10:57 Patient seen and examined. Complaining of urinating pain last night. Had a bladder scan done and now has a CBI, red tinged fluid currently coming out, blood clots as well. patient states she feels well at this point in time. Patient seen and examined, family at bedside, all questions answered. - Objective Resuscitation Status - Order Detail: 12/18/18 21:45 Resuscitation Status Routine Resuscitation Status: DNAR: NO Resuscitation Discussed with: discussed with pt and son Vital Signs & Weight: Vital Signs (12 hours) Temp Pulse Pulse Resp BP BP BP 12/20/18 08:35 97.1 F L 55 L 18 120/58 L 12/20/18 07:38 97.3 F L 58 L 19 113/53 L 12/20/18 06:41 70 14 12/20/18 03:17 97.5 F L 56 L 91/48 L Pulse Ox 12/20/18 08:35 99 12/20/18 07:38 95 12/20/18 06:41 12/20/18 03:17 92 L Weight Admit Weight 251 lb Weight 254 lb 7 oz I&O: 12/19/18 12/20/18 12/21/18 06:59 06:59 06:59 Intake Total 20 945 0 Output Total 0 Balance 20 945 0 Result Diagrams: 12/20/18 05:40 12/19/18 04:59 Additional Labs: Accuchecks 12/20/18 12/19/18 12/19/18 05:34 20:09 16:41 POC Glucose 118 H 148 H 139 H 12/19/18 10:50 POC Glucose 152 H Phys Exam - Physical Examination Constitutional: NAD HEENT: PERRLA, moist MMs, sclera anicteric Neck: no nodes, no JVD, supple Respiratory: no wheezing, no rales, no rhonchi Cardiovascular: RRR, no significant murmur, no rub Gastrointestinal: soft, non-tender, no distention, positive bowel sounds Musculoskeletal: pulses present, edema present Dx/Plan (1) Anemia Code(s): D64.9 - ANEMIA, UNSPECIFIED Status: Acute (2) CAD (coronary artery disease) Code(s): I25.10 - ATHSCL HEART DISEASE OF [place] CORONARY ARTERY W/O ANG PCTRS Status: Acute (3) ESRD needing dialysis Code(s): N18.6 - END STAGE RENAL DISEASE; Z99.2 - DEPENDENCE ON RENAL DIALYSIS Status: Acute Comment: HD catheter placement today, initiate HD per Renal service, outpt AV fistula placement (4) Diabetes mellitus type 2 in obese Code(s): E11.69 - TYPE 2 DIABETES MELLITUS WITH OTHER SPECIFIED COMPLICATION; E66.9 - OBESITY, UNSPECIFIED Status: Chronic Comment: Resume home insulin regiment with Lantus 20u BID, ISS, ADA (5) Hypertension Code(s): I10 - ESSENTIAL (PRIMARY) HYPERTENSION Status: Chronic - Plan * transfer to [facility] * transfuse 1 unit PRBC * d/w urology, they'll be seeing her this afternoon as well * keep NPO for now * DC all anticoagulation and antiplatelets * labs in AM * patient wishes to be a DNR * case d/w patient and family at length, they understood and agreed with this plan.
[2018-12-20] MEDS ORDERED: Heparin 10,000 UNITS/ 10 ML VIAL ONE (11:11)
--- NOTE | 2018-12-20 14:01 | CT ---
Exam: Abdomen CT without contrast Pelvic CT without contrast HISTORY: Gross hematuria. FINDINGS: CT ABDOMEN: Moderate bilateral pleural effusions with consolidation in both lower lobes due to atelectasis or pne umonia. Heart is enlarged. There is pericardial fluid. Visualized aorta has a normal caliber. Atherosclerosis is noted Limited evaluation of the solid organs by the lack of IV contrast. Grossly the liver, spleen, pancrea s and adrenal glands abnormal attenuation Bilaterally no hydronephrosis, nephrolithiasis or perinephric fat stranding. Bilateral ureters have a normal caliber. No hydroureter, periureteral fat stranding or ureterolithiasis There is perihepatic and perisplenic free fluid. Fluid tracks along both paracolic gutters. There is edema throughout the visualized thoracic and abdominal subcutaneous fat. Limited evaluation of the alimentary canal by the lack of oral contrast. No evidence of bowel obstruc tion. Ileocecal junction is normal. Normal caliber appendix. Scattered fecal material in a nondistended, nondilated colon. Diverticulosis, without evidence of diverticulitis CT PELVIS: Cardozo catheter within the urinary bladder. 4.7 x 4.0 cm hypodensity in the left adnexa with attenuati on coefficient of 15 Hounsfield units. No pelvic mass, lymphadenopathy. There is free fluid in the pelvis. No lytic or blastic lesions in the osseous structures IMPRESSION: 1. Anasarca, pleural fluid, intraperitoneal and pelvic free fluid. Correlate for third spacing. Maria Victoria elate for congestive heart failure. 2. No evidence of obstructive uropathy. 3. Diverticulosis, without evidence of diverticulitis. Transcribed Date/Time: 12/20/2018 2:43 PM
--- NOTE | 2018-12-20 18:45 | CON ---
DATE OF CONSULTATION: 12/20/2018 HISTORY OF PRESENT ILLNESS: This is an 83-year-old white female, I am seeing in room 264 here at [facility] because of gross hematuria. She was in the hospital I think for 2 to 3 weeks and was discharged last week and has returned sounds like 2 days ago. She was in the hospital initially with renal failure and fluid overload and she went to her alf in [place] and was there for a brief period of time before she was sent back here and does not feeling well. She was admitted on the with anemia and heart failure and again does not doing well, not feeling well. Last night, she developed lower abdominal pain and a bladder scan was done that showed apparently distended bladder, catheter was placed and she had grossly bloody urine, so a larger caliber catheter was placed and she was started on continuous bladder irrigation. The nurses did some irrigation for a few clots, but the urine was still bloody today, still on a bladder irrigation and fairly brisk drip. Her hemoglobin also did change, it was 7.0 on the , it was 7.7 yesterday, and it was 6.2 this morning. She is receiving a unit of blood now. Her coags were basically normal. Her creatinine was 3.77 yesterday, and apparently, the plans are for her to resume dialysis in the near future. Her current vital signs, she is afebrile, she is not tachycardic, and her blood pressure is stable. I do not find any evidence or ever having upper tract studies done at this facility, looking through medical records, I cannot find a urinalysis or urine culture that was done. On talking whether she to her knowledge has not had blood in her urine previously, she has not had kidney stones, she has really not had any major history for urologic infections of any type. She does not smoke. Her routine medications did include Plavix, but apparently she has not had this restarted in the hospital. She is on amiodarone, insulin, aspirin, carvedilol, hydralazine, Seroquel, allopurinol, atorvastatin, tramadol, and Senokot. ALLERGIES: SHE HAS NO KNOWN DRUG ALLERGIES. PAST SURGICAL HISTORY: She has had bilateral knee replacement surgery done. PHYSICAL EXAMINATION: Her flanks are nontender. Her abdomen is obese, but currently nontender. The bladder is not distended. Vaginal exam was done as a bimanual exam. I do not feel any large pelvic mass. There is no vaginal blood noted. She has a Cardozo catheter and is draining bloody urine. I disconnected this from the CBI, irrigated out with a little over a liter of sterile water and got a number of clots out and her urine looks much clear. I have slowed her CBI rate down. IMPRESSION: Gross hematuria. PLAN: Plan at this time will be to go ahead and set up a noncontrast CAT scan to look at her kidneys and ureters. We will let her eat today, but make her n.p.o. after midnight tonight and leave the possibility of cysto and retrogrades and possible TURBT tomorrow as a possibility by keeping her n.p.o. She is going to be transferred I think to the ICU because of her drop in her hemoglobin. She already did have anemia of chronic disease, this changing may not be as significant as the actual number would suggest that she had been running a hemoglobin in the 7 range probably for a while. I will follow along with you. Job ID: [id number]
[2018-12-20 19:38] LABS: Hemoglobin 7.7 g/dL (12.0-16.0)
[2018-12-20] MEDS: Atorvastatin Calcium 40 MG TAB PO SCH (21:01)
[2018-12-21 06:40] LABS: #Eosinphils 0.1 thou/uL (0.0-0.7); #Lymphocytes 0.7 thou/uL (1.20-3.40); #Monocytes 0.8 thou/uL (0.11-0.59); #Neutrophils 5.1 thou/uL (1.40-6.50); %Basophils 0.2 % (0.0-1.0); %Lymphocytes 9.8 % (21.0-51.0); %Monocytes 11.8 % (0.0-10.0); %Neutrophils 76.3 % (42.0-75.0); Hemoglobin 7.5 g/dL (12.0-16.0); Mean Corpuscular HGB CONC 31.4 g/dL (32.0-36.0); Mean Corpuscular Hemoglobin 30.2 pg (27.0-31.0); Mean Corpuscular Volume 96.3 fL (78.0-98.0); Mean Platelet Volume 8.3 fL (7.4-10.4); Platelet Count 267 thou/uL (130-400); RBC Distribution Width 16.4 % (11.5-14.5); Red Blood Cell (RBC) Count 2.46 mill/uL (4.20-5.40); White Blood Cell (WBC) Count 6.6 thou/uL (4.8-10.8)
[2018-12-21 06:59] LABS: Anion Gap 12 mmol/L (10-20); BUN (Urea Nitrogen) 18 mg/dL (9.8-20.1); Calc. Creatinine Clearance 28 mL/min (70-130); Carbon Dioxide 30 mmol/L (23-31); Chloride 101 mmol/L (98-107); Estimated GFR-MDRD 16; Glucose 121 mg/dL (83-110); Potassium 4.3 mmol/L (3.5-5.1); Sodium 139 mmol/L (136-145)
[2018-12-21] MEDS: Mometasone/Formoterol 120 PUFF INHALER INH SCH ×2 (07:28→18:37)
[2018-12-21] MEDS ORDERED: Heparin 10,000 UNITS/ 10 ML VIAL ONE (11:11)
[2018-12-21] MEDS ORDERED: Iothalamate Meglumine 60% 50 ML VIAL FS ONE (12:19)
[2018-12-21] MEDS ORDERED: Fentanyl 100 MCG/2 ML VIAL ONE (12:30)
[2018-12-21] MEDS ORDERED: Midazolam HCl 2 mg/2 ml Vial ONE (13:14)
[2018-12-21] MEDS ORDERED: Ketamine 50 MG/ML (10ML VIAL) ONE (13:15)
[2018-12-21] MEDS ORDERED: Dexmedetomidine 200 MCG/2 ML VIAL ONE (13:15)
[2018-12-21] MEDS ORDERED: cefTRIAXone\\ROCEPHIN 1 GM in Sodium Chloride 0.9% 100 ML IVPB SCH (13:45)
[2018-12-21] MEDS: Famotidine 20 MG TAB PO SCH (14:04)
[2018-12-21] MEDS: Polyethylene Glycol 3350 17 GM Packet PO SCH (14:04)
[2018-12-21] MEDS: Liothyronine Sodium 5 MCG TAB PO SCH (14:04)
[2018-12-21] MEDS: Allopurinol 100 MG TAB PO SCH (14:04)
[2018-12-21] MEDS: Senokot S 8.6-50 MG TAB PO SCH ×2 (14:05→22:19)
[2018-12-21] MEDS ORDERED: Ondansetron HCl/PF 4 MG/2 ML Vial IVP PRN (14:56)
--- NOTE | 2018-12-21 15:15 | RAD ---
BILATERAL RETROGRADE UROGRAM: Date: 12/21/18 HISTORY: Hematuria. Stones. COMPARISON: None available. FINDINGS: Bilateral retrograde urograms are performed. There is no evidence of hydronephrosis or dilatation of either ureter. No definite filling defect is seen within the renal collecting systems or either urete r bilaterally. Surgical clips overlie the right upper quadrant with vascular calcifications overlying the left upper quadrant. IMPRESSION: Bilateral retrograde urograms demonstrate no evidence of hydronephrosis or hydroureter, and no persis tent filling defect is appreciated. Correlation with intraoperative findings is recommended. POS: Paige
--- NOTE | 2018-12-21 15:17 | PDOC.EVN ---
Event Note - Event Note Event Note: Called by Dr. Patel - pt with hypoxia and tachypnea post-procedure and is currently on bipap. Sats around 93% and bp 110's systolic. CXR - pleural effusions and pulmonary edema. - Called Dr. Fox to see if pt can be dialyzed to help support her breathing - maintain bipap to maintain sats - duoneb - will schedule - repeat CBC as pt with hemoglobin 7.5 this morning - if lower, will plan to transfuse with dialysis - consult Pulmonology
--- NOTE | 2018-12-21 15:25 | RAD ---
FRONTAL VIEW CHEST: Date: 12/21/18 COMPARISON: 12/08/18. CLINICAL HISTORY: Hypoxia. FINDINGS: Right-sided tunneled vascular catheter remains. Prior left internal jugulovenous catheter is not visu alized. The patient is rotated, limiting assessment. There is enlargement of the cardiac silhouette, engorgement of pulmonary vasculature and bilateral pleural fluid, with adjacent pulmonary parenchymal opacification. Chest otherwise similar. IMPRESSION: Findings indicate fluid overload. Evaluation is limited by patient rotation. Recommend continued follow-up. POS: SONYA
[2018-12-21 16:05] LABS: #Eosinphils 0.1 thou/uL (0.0-0.7); #Lymphocytes 0.8 thou/uL (1.20-3.40); #Monocytes 0.9 thou/uL (0.11-0.59); #Neutrophils 5.4 thou/uL (1.40-6.50); %Basophils 0.1 % (0.0-1.0); %Eosinophils 1.1 % (0.0-10.0); %Lymphocytes 11.1 % (21.0-51.0); %Monocytes 12.1 % (0.0-10.0); %Neutrophils 75.6 % (42.0-75.0); Hemoglobin 7.9 g/dL (12.0-16.0); Mean Corpuscular HGB CONC 31.1 g/dL (32.0-36.0); Mean Corpuscular Hemoglobin 30.3 pg (27.0-31.0); Mean Corpuscular Volume 97.6 fL (78.0-98.0); Mean Platelet Volume 8.1 fL (7.4-10.4); Platelet Count 279 thou/uL (130-400); RBC Distribution Width 16.6 % (11.5-14.5); Red Blood Cell (RBC) Count 2.59 mill/uL (4.20-5.40); White Blood Cell (WBC) Count 7.1 thou/uL (4.8-10.8)
[2018-12-21] MEDS ORDERED: Ondansetron PF 4 MG/2 ML Vial ONE (16:28)
[2018-12-21] MEDS ORDERED: PHENYLEPHRINE-NS 100 MCG/ML 10 ML SYRINGE ONE (16:28)
[2018-12-21] MEDS ORDERED: ePHEDrine 50 MG/ML VIAL ONE (16:28)
[2018-12-21] MEDS ORDERED: PROPOFOL 200 MG/20 ML VIAL ONE (16:28)
[2018-12-21] MEDS ORDERED: Metoclopramide HCl 10 MG/2 ML VIAL ONE (16:28)
--- NOTE | 2018-12-21 16:59 | OP ---
DATE OF PROCEDURE: 12/21/2018 PREOPERATIVE DIAGNOSES: Gross hematuria and clot retention. POSTOPERATIVE DIAGNOSES: Gross hematuria and clot retention. PROCEDURES PERFORMED: Cysto, clot evacuation, bilateral retrograde pyelograms, and fulguration of bladder mucosal lesions. ANESTHESIA: TIVA/LMA. DRAINS PLACED: A 20-Trinidadian 30 mL hooked up to continuous bladder irrigation. FINDINGS: Retrograde studies to my review showed no hydronephrosis, no filling defects. She had no bloody efflux from either the left or the right ureteral orifice after the retrograde study. The bladder had 5 to 6 small areas of erythema with some nodularity that to me reminds me of catheter-related cystitis. She was in the hospital for about 3 weeks about a month ago and was discharged just about a week ago before she returned to the hospital just a few days after the discharge. She at that time had a Cardozo and it may be that these areas are just related to having a catheter and a bladder for that period of time. They were not significantly suspicious for cancer. They look more inflammatory. I did not biopsy these, we just fulgurated them. She had a moderate amount of clot which we evacuated before doing this. INDICATIONS FOR SURGERY: This is an elderly white female, who has a number of medical conditions including end-stage renal disease. She has recently started dialysis. As mentioned above, she had been in the hospital for about 3 weeks with congestive heart failure and end-stage renal disease and started dialysis then. She had gone back to a nursing center and then was returned here with abdominal pain and just not doing well. She was found to have a distended bladder. Catheter was placed. She had grossly bloody urine. She had been started on continuous irrigation. I was consulted. She had actually dropped her hemoglobin down to 6.2, and she was transfused yesterday. Her coags were basically normal on the , INR of 1.2 and PTT of 26.3. It appeared she had been on Plavix, but it looked like that have been held when she returned to the hospital on the . As mentioned, she does have end-stage renal disease and she was dialyzed yesterday. When I saw her yesterday, we went ahead and irrigated a fair amount of clot out and got her much clearer than she was and watched her on continuous bladder irrigation overnight. Her hemoglobin was stable at 7.7 after transfusion and 7.5 this morning, but she has still grossly bloody urine, although better than it was yesterday. I did a CAT scan on her, it was noncontrast because of the renal failure and she did not have hydro or stones. I talked with the patient as well as her niece who is currently closest kin with her about either checking her bladder or not and the pros and cons of both and after talking further about it, we elected to go ahead and do a look into the bladder to at least what is going on, know whether she got a large bladder tumor or something of that nature or not. So she comes down for clot evacuation, looked into the bladder, retrograde studies and possible bladder biopsies/fulguration depending what we saw. Indicated with the patient and her niece that if she had a large bladder tumor of some sort that we would not be looking or trying to resect any of that, it would be mainly just to cauterize or to get it stop bleeding. She did receive some Rocephin in the OR. DESCRIPTION OF PROCEDURE: After obtaining written and verbal consent, she was taken to the operating suite, placed in a supine position on the treatment table. PlexiPulses were on the lower extremities and turned on. She was given TIVA anesthetic. She was not intubated and she was placed in the dorsal lithotomy position. She ended up having some trouble maintaining her O2 sats and she had a LMA put in for part of the case. She was never put into under a deep anesthetic. Cardozo catheter was removed. She was sterilely prepped and draped. Cystoscopy was performed with a 22-Trinidadian sheath. It was passed under direct vision through the female urethra into the urinary bladder with aid of a 30-degree lens and video camera and monitor the findings of the clot in the bladder as mentioned. This was removed. A 24-Trinidadian resectoscope sheath with Vineet obturator was lubricated, passed into the bladder and then we elliked out all of this clot. We then reinspected with a 22-Trinidadian sheath. A 5-Trinidadian cone-tipped catheter was flushed with contrast. [employer] KUB was taken and we injected contrast up the left ureter, filling out the left ureter and calyceal system and then did the same on the right side. The above findings are as mentioned. We looked at both ureteral orifices, effluxed this and it was not bloody. She was not effluxing urine before doing this, as she has end-stage renal and was dialyzed yesterday. We then went ahead and looked at the bladder with the 30- and 70-degree lens. These lesions that were identified as described above were cauterized with a Bugbee electrode. Once this was completed, the instruments were removed. Cardozo catheter 20-Trinidadian was placed, 30 mL in the balloon. It was started on continuous irrigation. It was clear on continuous irrigation. At this point, she was awakened from her mild anesthesia. She was taken to the ICU as she was having some trouble with O2 saturations and we felt that she would best be recovered in the recovery room rather than taking up to the step-down unit associated with the ICU. Job ID: [id number]
--- NOTE | 2018-12-21 17:31 | PDOC.PN ---
- Subjective Encounter Start Date: 12/21/18 (f/u ESRD) Encounter Start Time: 17:29 Subjective: Pt evaluated this morning and again just now. She is s/p cystoscopy -: with resp distress post-procudure requiring bipap. She is off bipap now -: having some confusion. - Objective Resuscitation Status - Order Detail: 12/18/18 21:45 Resuscitation Status Routine Resuscitation Status: DNAR: NO Resuscitation Discussed with: discussed with pt and son Vital Signs & Weight: Vital Signs (12 hours) Temp Pulse Resp Pulse Ox 12/21/18 15:48 97.8 F 12/21/18 10:37 98.7 F 12/21/18 10:30 61 24 H 100 12/21/18 08:22 100 12/21/18 07:26 57 L 21 H 100 12/21/18 07:20 98.2 F Weight Admit Weight 251 lb Weight 246 lb 14.4 oz Most Recent Monitor Data Heart Rate from ECG 66 NIBP 98/47 NIBP BP-Mean 64 Respiration from ECG 18 SpO2 91 I&O: 12/20/18 12/21/18 12/22/18 06:59 06:59 06:59 Intake Total 945 03667 Output Total 0 60172 Balance 945 -1315 Result Diagrams: 12/21/18 15:57 12/21/18 06:31 Additional Labs: Accuchecks 12/21/18 12/20/18 06:39 20:57 POC Glucose 141 H 96 EKG Reviewed by me: Yes Phys Exam - Physical Examination Constitutional: NAD Respiratory: no wheezing, no rales, no rhonchi decreased breath sounds at bases Cardiovascular: RRR, no significant murmur Gastrointestinal: soft, non-tender, no distention, positive bowel sounds Musculoskeletal: no edema Neurological: non-focal, moves all 4 limbs Dx/Plan (1) Volume overload Code(s): E87.70 - FLUID OVERLOAD, UNSPECIFIED Status: Acute (2) ESRD (end stage renal disease) Code(s): N18.6 - END STAGE RENAL DISEASE Status: Chronic (3) Constipation Code(s): K59.00 - CONSTIPATION, UNSPECIFIED Status: Chronic (4) Dyslipidemia Code(s): E78.5 - HYPERLIPIDEMIA, UNSPECIFIED Status: Chronic (5) Hypothyroid Code(s): E03.9 - HYPOTHYROIDISM, UNSPECIFIED Status: Chronic (6) Diabetes mellitus type 2 in obese Code(s): E11.69 - TYPE 2 DIABETES MELLITUS WITH OTHER SPECIFIED COMPLICATION; E66.9 - OBESITY, UNSPECIFIED Status: Chronic (7) Hypertension Code(s): I10 - ESSENTIAL (PRIMARY) HYPERTENSION Status: Chronic Qualifiers: Hypertension type: essential hypertension Qualified Code(s): I10 - Essential (primary) hypertension (8) Gross hematuria Status: Acute Comment: Likely due to Cardozo catheter placement in conjunction with dual anti-platelet therapy, continue to monitor for improvement, hold ASA/ Plavix, consider Urology evaluation if no improvement in 24h - Plan * s/p cystoscopy today with removal of clots - appreciate Urology consult * * Resp distress resolved, on oxygen with volume overload and bp's that are low/ low-normal * Anemia with hb 7.9 - will transfuse 1 unit as pt symptomatic * Dr. Fox to arrange dialysis * Schedule bowel meds * * bradycardia - hold amiodarone * * continue pt/ot * * dvt prophy - scd's * gi prophy - not indicated * code status DNAR - reviewed with patient's niece, her father (pt's brother) is POA * * pt at high risk of decompensation. Reviewed plan of care with niece who states that all care provided is c/w patient's wishes
--- NOTE | 2018-12-21 19:54 | CON ---
DATE OF CONSULTATION: 12/21/2018 HISTORY OF PRESENT ILLNESS: Ms. Higgins is an 83-year-old female, who is on dialysis. She is admitted with bleeding complaints on the . I was consulted because of her presence in the intermediate care unit. Dr. Patel was consulted yesterday because of gross hematuria. It is unclear to me how much urine she makes a day. I was consulted because of her presence in the intermediate care unit. She went to endoscopy today and was placed on BiPAP after cystoscopy. She had clot evacuation, bilateral retrograde pyelograms with fulguration of bladder mucosal lesions. Postprocedure chest x-ray showed pulmonary edema. Hospitalist was consulted. Her director packaging to see if she can get dialysis this evening to remove the volume. PAST MEDICAL HISTORY: 1. Remarkable for recent hospitalization on 29 of November to the 15 of December, it is felt to have chronic diastolic heart failure. 2. She has had a CVA. 3. She has severe obstructive sleep apnea. 4. History of diabetes. 5. Anemia of chronic disease. 6. History of carotid disease. 7. History of obesity. 8. Status post cholecystectomy. 9. Status post hysterectomy. 10. History of lumbar laminectomy. 11. History of tonsillectomy. 12. History of wrist surgery. 13. History of bilateral knee replacements. 14. History of left breast lumpectomy. SOCIAL HISTORY: Nonsmoker, nondrinker, nondrug user. She is a . FAMILY HISTORY: Non contributory. ALLERGIES: SHE HAS NO DRUG ALLERGIES. REVIEW OF SYSTEMS: Ten-point review of systems completed, otherwise negative. PHYSICAL EXAMINATION: VITAL SIGNS: Blood pressure 104/41, heart rates in the 60s, and respiratory rates in the teens. HEENT: Pupils are reactive. Sclerae are anicteric. NECK: Supple. LUNGS: Distant clear. HEART: Regular rhythm. No S3 is heard. Grade 2/6 systolic murmur is heard. ABDOMEN: Soft and nontender. EXTREMITIES: Without clubbing, cyanosis, or edema. NEUROLOGIC: Nonfocal. LABORATORY DATA: White count 7.1, hemoglobin 7.9, and platelets 279,000. Electrolytes were unremarkable. Creatinine is 2.76. IMPRESSION: 1. Status post cystoscopy. 2. Severe sleep apnea. 3. Renal failure on dialysis. 4. Volume overload. 5. Mixed anemia of chronic disease combined with blood loss. 6. Deconditioning. 7. It is reasonable to keep her on BiPAP through the night given that she has significant sleep apnea. She can take a break before she goes to bed. If she improves with dialysis, we will follow the other physicians caring for. This is a 50 minute consult, with greater than 50% of time spent on unit coordinating care. Job ID: [id number] MTDD
[2018-12-21] MEDS: Atorvastatin Calcium 40 MG TAB PO SCH (22:18)
[2018-12-22] MEDS: Mometasone/Formoterol 120 PUFF INHALER INH SCH ×2 (07:23→19:09)
[2018-12-22 08:05] LABS: #Eosinphils 0.1 thou/uL (0.0-0.7); #Lymphocytes 0.7 thou/uL (1.20-3.40); #Monocytes 0.9 thou/uL (0.11-0.59); #Neutrophils 5.8 thou/uL (1.40-6.50); %Eosinophils 1.4 % (0.0-10.0); %Lymphocytes 9.5 % (21.0-51.0); %Monocytes 12.3 % (0.0-10.0); %Neutrophils 76.9 % (42.0-75.0); Hemoglobin 9.1 g/dL (12.0-16.0); Mean Corpuscular Hemoglobin 30.1 pg (27.0-31.0); Mean Corpuscular Volume 97.1 fL (78.0-98.0); Mean Platelet Volume 7.9 fL (7.4-10.4); Platelet Count 261 thou/uL (130-400); RBC Distribution Width 15.7 % (11.5-14.5); Red Blood Cell (RBC) Count 3.03 mill/uL (4.20-5.40); White Blood Cell (WBC) Count 7.6 thou/uL (4.8-10.8)
[2018-12-22 08:22] LABS: Anion Gap 10 mmol/L (10-20); BUN (Urea Nitrogen) 12 mg/dL (9.8-20.1); Calc. Creatinine Clearance 33 mL/min (70-130); Calcium 8.7 mg/dL (7.8-10.44); Carbon Dioxide 32 mmol/L (23-31); Chloride 100 mmol/L (98-107); Estimated GFR-MDRD 22; Glucose 138 mg/dL (83-110); Sodium 138 mmol/L (136-145)
[2018-12-22] MEDS: Famotidine 20 MG TAB PO SCH (09:23)
[2018-12-22] MEDS: Senokot S 8.6-50 MG TAB PO SCH ×2 (09:24→21:38)
[2018-12-22] MEDS: Allopurinol 100 MG TAB PO SCH (09:24)
[2018-12-22] MEDS: Polyethylene Glycol 3350 17 GM Packet PO SCH (09:24)
[2018-12-22] MEDS: Liothyronine Sodium 5 MCG TAB PO SCH (09:24)
--- NOTE | 2018-12-22 11:33 | PRG ---
DATE OF SERVICE: 12/22/2018 SUBJECTIVE: The patient is seen and examined at bedside. Granddaughter is present in the room during my visit. She noticed that the patient is somewhat confused this morning. She had hemodialysis done yesterday, actually the last night. OBJECTIVE: VITAL SIGNS: Blood pressure is 111/52, pulse is 73, temperature is 99.1, O2 saturation is 99% on 3 L by nasal cannula. GENERAL: She tries to follow my commands. HEENT: Head is atraumatic and normocephalic. Pupils are responding to light. Sclerae are nonicteric. Oral mucosa is moist. NECK: Supple. LUNGS: Breath sounds diminished at both bases. Few crackles bilaterally at both bases. No wheezing. HEART: S1 and S2, somewhat distant. No S3. No S4. ABDOMEN: Soft, obese, nontender. Bowel sounds present. EXTREMITIES: No clubbing, cyanosis, or edema. NEUROLOGICAL: She moves her all 4 extremities. She is confused. She knows that she is at [facility], but she does not know exact time and date. LABORATORY DATA: Labs showed sodium of 138, potassium 4.0, chloride 100, CO2 of 12, creatinine 2.14. White count of 7.6, hemoglobin 9.1, hematocrit 29.4, platelet count is 261,000. Glucose is ranging from 126 to 141. Calcium is 8.7. IMPRESSION: 1. Fluid overload, status post dialysis last night. 2. Gross hematuria. No more bleeding, status post cystoscopy, removal of clots. 3. Anemia, status post transfusion of packed red blood cells yesterday and her hemoglobin is up to 9.1. 4. End-stage renal disease, on dialysis. She just started dialysis recently. 5. Dyslipidemia. 6. Diabetes mellitus type 2, controlled at this point. 7. Hypothyroidism, chronic on replacement. 8. Hypertension. PLAN: Plan to restart her amiodarone since she is not bradycardic anymore. We will continue her DuoNebs. We will continue her sliding scale with Humulin, since her glycemia is well controlled. She might need additional dialysis today and tomorrow. She still looks like she is volume overloaded. We will keep holding both antiplatelet agents, aspirin, and Plavix, and continue her DuoNebs and O2. Job ID: [id number]
--- NOTE | 2018-12-22 11:50 | PRG ---
DATE OF SERVICE: 12/22/2018 SUBJECTIVE: Morbidly obese female, well known to me, was just recently discharged from the hospital, was a DNR, presented with GI bleed. OBJECTIVE: GENERAL: She is more awake, responsive. VITAL SIGNS: Reveal temperature 99, saturations 96% on 2 L, pulse 80, blood pressure 110/52, respirations 18. CHEST: No wheezing or crackles. CARDIAC: Normal S1 and S2. No gallops. ABDOMEN: No masses. LABORATORY DATA: Creatinine is 2.14, which is probably at her baseline. H and H are stable at 9 and 27. IMPRESSION: Massive genitourinary bleeding, chronic renal failure, congestive heart failure, morbid obesity. PLAN: Continue present neb treatments, supportive care. Plavix was discontinued. Job ID: [id number]
[2018-12-22 12:32] VITALS: BP 117/50
--- NOTE | 2018-12-22 12:48 | PRG ---
DATE OF SERVICE: 12/22/2018 I am seeing today in B5 here at [facility]. She is postop day #1 from clot evacuation, some bladder fulguration, and bilateral retrograde. She has had a low-grade temperature 99. Her blood pressure appears to be stable. She is not tachycardic. She was dialyzed last night for about 4 hours, get 2 L off her, and she looks a lot more comfortable, just started on nasal cannula right now. Her urine is clear, off bladder irrigation currently. She received some Rocephin yesterday and I do not have her on any further antibiotics. She is about to eat lunch. Her hemoglobin was 9.1 this morning, white count was normal. Creatinine was 2.1, again she was dialyzed. Further looking better, feeling better with the urine clear. I think we could remove her Cardozo catheter whenever it is not needed for monitoring. I told maybe about at least tomorrow. I am going to be away this holiday weekend. There is a urologist, Dr. Mason, on-call should it be necessary for him to see her, but I do not think that would be necessary sort of her starting to bleed again. I would recommend we try to get her catheter out of her as soon as does not needed for monitoring, possibly as soon as tomorrow the 23 of December, and I will check on her when I return on Wednesday and that she has already been discharged and moved to rehab or to a nursing center. Job ID: [id number]
[2018-12-22] MEDS ORDERED: Heparin 10,000 UNITS/1 ML VIAL ONE (15:00)
[2018-12-22] MEDS ORDERED: Amiodarone 200 MG TAB PO SCH (21:00)
[2018-12-22] MEDS: Atorvastatin Calcium 40 MG TAB PO SCH (21:38)
[2018-12-23 07:32] VITALS: TEMP 99.3
[2018-12-23] MEDS: Mometasone/Formoterol 120 PUFF INHALER INH SCH (07:48)
[2018-12-23] MEDS ORDERED: EPOETIN ALFA-EPBX (ESRD) 10,000 UNIT/ML VIAL SC SCH (09:00)
--- NOTE | 2018-12-26 14:18 | DIS ---
DATE OF ADMISSION: 12/20/2018 DATE OF DISCHARGE: 12/23/2018 DATE OF : 12/23/2018. CONSULTANTS: 1. Dr. Davis Patel, Urology Service. 2. Dr. Ean Pena, Pulmonary/Critical Care Service. 3. Dr. Titus Croft, Pulmonary/Critical Care Service. IMAGING STUDIES: CT of the abdomen and pelvis: 1. Anasarca, pleural fluid, intraperitoneal and pelvic free fluid. Correlate for congestive heart failure. 2. No evidence of obstructive uropathy. 3. Diverticulosis without evidence of diverticulitis. Retrograde pyelogram; bilateral retrograde urograms demonstrate no evidence of hydronephrosis or hydroureter. No persistent filling defect is appreciated. Chest x-ray showed fluid overload, enlargement of the cardiac silhouette, engorgement of pulmonary vasculature, and bilateral pleural fluid with adjacent pulmonary parenchymal opacifications. DIAGNOSES AT THE TIME OF ADMISSION: 1. Acute worsening of chronic anemia of kidney disease. 2. Hypotension. 3. Stool impaction. 4. End-stage renal disease. 5. Chronic combined diastolic heart failure. 6. Diabetes mellitus. 7. Hypertension. 8. Dyslipidemia. 9. Chronic hypothyroidism. FINAL DIAGNOSES AT THE TIME OF : 1. Gsawm-tf-xqapjqo combined congestive heart failure. 2. Hematuria, post cystoscopy, clot evacuation, and fulguration of bladder mucosal lesions. 3. End-stage renal disease, started on dialysis. 4. Hypothyroidism. 5. Dyslipidemia. 6. Anemia. 7. Hypertension. 8. Diabetes mellitus, type 2. HOSPITAL COURSE: The patient was an 83-year-old female with past medical history of end-stage renal disease, on hemodialysis started recently; chronic anemia due to chronic kidney disease; diabetes mellitus; history of breast cancer as well as chronic combined congestive heart failure and hypothyroidism, who presented to the emergency room with a bleeding, recently discharged from our facility on December 05. During that hospitalization, she was diagnosed with CHF and was treated with hemodialysis, had a coding episode when she developed bradycardia and required dobutamine drip in Critical Care. Eventually, she was taken off her diuretics and the carvedilol, was discharged to [facility] for long-term placement in the rehabilitation. During this hospitalization, she was admitted with vaginal bleeding, and at the time of emergency room visit, her blood pressure was 82/43, and her hemoglobin was found to be 7.0. She was transfused with 1 unit of packed red blood cells and admitted under observation status for H and H monitoring. On admission to the hospital, her white count was 4.6, hemoglobin 7.0, hematocrit 23.3, platelet count 228. Coagulation studies were within normal limits. BUN was 22, creatinine 3.35, blood sugar was 153. Her iron levels were at 20, TIBC at 256, and ferritin 92. Bleeding apparently was evaluated by [employer] during the previous admission, and she had a workup done. Aspirin and Plavix were put on hold, and Allergies was consulted because there were symptoms of fluid overload clinically and radiographically. Dr. Fox saw the patient, and she was getting her dialysis daily. CT scan of the abdomen and pelvis showed anasarca, pleural fluid, intraperitoneal and pelvic free fluid along with diverticulosis without evidence of diverticulitis. Urologist, Dr. Patel was consulted because of gross hematuria, and he did cystoscopy with clot evacuation and bilateral retrograde pyelograms and fulguration of bladder mucosal lesions. 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 Apparently after the procedure, she became dyspneic, and she required BiPAP treatment, transfused with a total of 4 units of packed red blood cells. Her final hemoglobin on December 22, was 9.1. Code status was changed to do not resuscitate according to the patient's wishes. She developed some bradycardia during this hospitalization, so her amiodarone was put on hold. On BiPAP at night since she had significant sleep apnea. She was continued on her DuoNebs and insulin. She stopped bleeding. She was getting her dialysis as per Nephrology recommendation. All her antiplatelet agents were stopped, and the subsequent day at 0835, she went to bradycardia, then asystole, and she passed. Body was released to the home. She was DNR. Job ID: [id number]
--- NOTE | 2018-12-30 09:57 | PQF ---
[employer] Associate Spa Director Crystal Reports Winform ViewerSAMICHELEBARBARA RIVERA RODRI EMMA [id number] [id number] CLINICAL DOCUMENTATION CLARIFICATION FORM: POST DISCHARGE Addendum to original discharge summary date: ____ Late entry note date: __ The care provided/discharge summary was dictated by Dr. Rajput - please direct this inquiry to him DATE: 12/30/2018 ATTN: EMMA MACE Please exercise your independent, professional judgment in responding to the clarification form. Clinical indicators are provided on the bottom of this form for your review Please check appropriate box(s): [ ] Acute Respiratory Failure: [ ] with Hypoxia[ ] with Hypercapnia [ ] Acute On Chronic Respiratory Failure: [ ] with Hypoxia [ ] with Hypercapnia [ ] Acute Respiratory Failure due to: (etiology) [ ] ARDS (Acute Respiratory Distress Syndrome) [ ] Chronic Respiratory Failure only [ ] with Hypoxia [ ] with Hypercapnia [ ] Hypoxia [ ] Other diagnosis [ ] Unable to determine In addition, please specify: Present on Admission (POA): [ ] Yes [ ] No [ ] Unable to determine For continuity of documentation, please document condition throughout progress notes and discharge summary. Thank You. CLINICAL INDICATORS - SIGNS / SYMPTOMS / LABS Pt with Hypoxia and tachypnea post-procedure and is currently on Bipap-Event note, 12/21-Emma mace MD Sats around 93 % and bp 110s systolic, CXR-pleural effusions and pulmonary edema-Event note, 12/21-Emma mace MD Resp distress resolved, on oxygen with volume overload-Hospital PN, 12/21, Emma mace MD Decreased breath sounds at bases-Hospital PN, 12/21, Emma mace MD BiPAP at night she had significant sleep apnea-DS, 12/27, Lucas Rajput MD After the procedure, she become dyspneic and she requied BiPAP treatment-DS, , Lucas Rajput MD Postprocedure CXR showed pulmonary edema-Consult, 12/21, Becky Mckoy MD R[employer]ORS Pleural fluid-DS, 12/27, Lucas Rajput MD Acute on chronic combined CHF-DS, 12/27, Lucas Rajput MD post cystoscopy, clot evacuation and fulguration of bladder mucosal lesions-DS, 12/27, Lucas Rajput MD TREATMENTS: [employer] Associate Spa Director Crystal Reports Winform ViewerMaintain bipap to maintain sats, nuviab-will schedule-Event note, 12/21-Emma Riceb-DS, 12/27, Lucas Rajput MD (This form is maintained as a part of the permanent medical record) 2014 [employer]. All Rights Reserved Micaela Kennedy [not provided] [not provided] MTDD
== END 2018-12-23 08:35 | disposition expired | DRG 668 ==
LOC: ERS 15:01 → 2NO 19:15 → INTOOBSV 19:15 → OBSVTOIN 12-20 10:06 → IMCU/EMU 12-20 19:50
PROVIDERS: ADMIT Family Medicine; ATTEND Family Medicine
PROC: 5A1D70Z Performance of Urinary Filtration, Intermittent, Less than 6 Hours Per Day (ICD-10-PCS; 2018-12-20)
PROC: 0T5B8ZZ Destruction of Bladder, Via Natural or Artificial Opening Endoscopic (ICD-10-PCS; principal; 2018-12-21)
PROC: 30233N1 Transfusion of Nonautologous Red Blood Cells into Peripheral Vein, Percutaneous Approach (ICD-10-PCS; 2018-12-21)
PROC: 0TCB8ZZ Extirpation of Matter from Bladder, Via Natural or Artificial Opening Endoscopic (ICD-10-PCS; 2018-12-21)
PROC: BT141ZZ Fluoroscopy of Kidneys, Ureters and Bladder using Low Osmolar Contrast (ICD-10-PCS; 2018-12-21)
DX: T83.83XA Hemorrhage due to genitourinary prosthetic devices, implants and grafts, initial encounter (principal); N18.6 End stage renal disease; I50.43 Acute on chronic combined systolic (congestive) and diastolic (congestive) heart failure; I13.2 Hypertensive heart and chronic kidney disease with heart failure and with stage 5 chronic kidney disease, or end stage renal disease; Z68.41 Body mass index [BMI] 40.0-44.9, adult; T83.511A Infection and inflammatory reaction due to indwelling urethral catheter, initial encounter; D50.0 Iron deficiency anemia secondary to blood loss (chronic); Z66 Do not resuscitate; E11.22 Type 2 diabetes mellitus with diabetic chronic kidney disease; D63.1 Anemia in chronic kidney disease; E03.9 Hypothyroidism, unspecified; I95.9 Hypotension, unspecified; E78.5 Hyperlipidemia, unspecified; E66.9 Obesity, unspecified; N30.81 Other cystitis with hematuria; I25.10 Atherosclerotic heart disease of native coronary artery without angina pectoris; E87.70 Fluid overload, unspecified; K59.00 Constipation, unspecified; G47.33 Obstructive sleep apnea (adult) (pediatric); Y84.6 Urinary catheterization as the cause of abnormal reaction of the patient, or of later complication, without mention of misadventure at the time of the procedure; E11.40 Type 2 diabetes mellitus with diabetic neuropathy, unspecified; E87.5 Hyperkalemia; Z96.653 Presence of artificial knee joint, bilateral; M19.90 Unspecified osteoarthritis, unspecified site; I73.9 Peripheral vascular disease, unspecified; Z86.73 Personal history of transient ischemic attack (TIA), and cerebral infarction without residual deficits; Z99.2 Dependence on renal dialysis; Z79.4 Long term (current) use of insulin; Z85.3 Personal history of malignant neoplasm of breast; Z90.12 Acquired absence of left breast and nipple; Z90.710 Acquired absence of both cervix and uterus
CPT/HCPCS: 36415; 36416; 36430; 71045; 74176; 74420; 80048; 80053; 82274; 82728; 83540; 83550; 85025; 85730; 86850; 86900; 86901; 87086; 90935; 94640; C1758; G0257; J0696; J1644; J2250; J2405; J2704; J2765; J2916; J3010; J3490; J7620; P9016